=== PATIENT | female | born 1990 | race Caucasian/White ===

== ENCOUNTER 2022-08-31 08:04 | Outpatient (CLI) | payer BC, SELFPAY ==
--- NOTE | 2022-08-31 08:15 | CRLHL7_ITS ---
For Patients: As a result of the Cures Act, medical imaging exams and procedure reports are released immediately into your electronic medical record. You may view this report before your referring provider. If you have questions, please contact your health care provider. INDICATION: Dating and viability. LMP 06/29/2022. COMPARISON: None. TECHNIQUE: Real-time clarke-scale imaging of the pelvis was performed. FINDINGS: Sonographic imaging demonstrates a single living intrauterine gestation. The embryo has a regular cardiac rate measuring 179 beats per minute. The embryo`s crown-rump length measurement of 2.5 cm corresponds to a gestational age of 9 weeks 1 day with a sonographic due date of 04/04/2023. There is a normal-appearing yolk sac. The placenta has not yet developed. No evidence of a perigestational hemorrhage. The cervix appears closed. The right ovary measures 3.4 x 2.2 x 1.7 cm and the left ovary measures 3.9 x 2.1 x 2.3 cm. Corpus luteum in the left ovary. No free fluid in the cul-de-sac. IMPRESSION: 1. Single living intrauterine gestation with crown rump length 2.5 cm which corresponds to a gestational age of 9 weeks 1 day with a sonographic due date of 04/04/2023. 2. The clinical gestational age by LMP is 9 weeks 0 days. Dictated by Laurel Torres MD @ 08/31/2022 8:25:46 PM (Electronically Signed)
== END 2022-08-31 08:05 | disposition home or self-care (01) ==
PROVIDERS: Visit Provider Physician Assistant
DX: Z34.91 Encounter for supervision of normal pregnancy, unspecified, first trimester (principal); Z3A.09 9 weeks gestation of pregnancy
CPT/HCPCS: 76817; 82565; 82570; 84156; 84450; 84460; 84520; 86592; 86703; 86762; 86787; 86803; 86850; 86900; 86901; 87086; 87340; 87491; 87591

== ENCOUNTER 2022-09-08 10:20 | Outpatient (CLI) | payer BC, SELFPAY | END 2022-09-08 10:21 | disposition home or self-care (01) | LOC: NFLDREF 09-10 09:13 | PROVIDERS: Visit Provider Physician Assistant | DX: O14.90 Unspecified pre-eclampsia, unspecified trimester (principal) | CPT/HCPCS: 82570; 84156 ==

== ENCOUNTER 2022-12-21 11:11 | Outpatient (CLI) | payer BC, SELFPAY | END 2022-12-21 11:12 | disposition home or self-care (01) | PROVIDERS: Visit Provider Obstetrics & Gynecology | DX: O16.2 Unspecified maternal hypertension, second trimester (principal); Z3A.25 25 weeks gestation of pregnancy | CPT/HCPCS: 82565; 82570; 84156; 84450; 84460; 84520 ==

== ENCOUNTER 2023-01-11 10:41 | Outpatient (CLI) | payer BC, SELFPAY ==
--- NOTE | 2023-01-11 11:00 | CRLHL7_ITS ---
For Patients: As a result of the Century Cures Act, medical imaging exams and procedure reports are released immediately into your electronic medical record. You may view this report before your referring provider. If you have questions, please contact your health care provider. OBSTETRIC ULTRASOUND INDICATION: Maternal hypertension. LMP: 06/29/2022. IRVING by LMP: 04/05/2023. GA: 28w, 0d. Single. CERVIX: Not visualized. POSITIONING: Vertex. AMNIOTIC FLUID: 27.8 cm BEAN. SDP 8.1 cm. PLACENTA: Technique: Transabdominal. PLACENTA POSITION: Posterior, right wall. DOPPLER: heart rate: 137 bpm. Biometry: BPD: 7.6 cm. 30w, 4d, 97 percent. HC: 28.5 cm. 31w, 2d, 97 percent. AC: 24.9 cm. 29w, 1d, 76 percent. FL: 5.1 cm. 27w, 3d, 20 percent. FL/AC ratio: 20.62 percent. HC/AC ratio: 1.14. EFW: 1295 g. Weight: 2 lbs, 14 oz. age by this US: 29w, 4d. IRVING by this US: 03/25/2023. Percentile by IRVING: 71 percent. IMPRESSION: 1. Single live intrauterine gestation at 29 weeks 4 days. IRVING of 03/25/2023. Polyhydramnios with single deepest pocket measuring 8.1 cm. BEAN measures 27.8 cm. 2. Estimated weight 1295 g., which lies at the 71st percentile. Kenia Gordon M.D. Diagnostic/Breast Radiologist [email or web address] JUANJOSE/ros / be/Dictated by: Kenia Gordon MD @ 01/14/2023 8:15:00 PM (Electronically Signed)
== END 2023-01-11 10:42 | disposition home or self-care (01) ==
LOC: US 10:42
PROVIDERS: Visit Provider Obstetrics & Gynecology
DX: Z3A.29 29 weeks gestation of pregnancy (principal)
CPT/HCPCS: 76816; 86592

== ENCOUNTER 2023-01-25 10:07 | Outpatient (CLI) | payer BC, SELFPAY ==
--- NOTE | 2023-01-25 10:15 | CRLHL7_ITS ---
For Patients: As a result of the Century Cures Act, medical imaging exams and procedure reports are released immediately into your electronic medical record. You may view this report before your referring provider. If you have questions, please contact your health care provider. INDICATION: HYPERTENSION TECHNIQUE: Real time clarke scale imaging of the fetus was performed. COMPARISON: 01/11/2023 FINDINGS: Sonographic imaging demonstrates a single living intrauterine gestation. Fetus demonstrates a regular cardiac rate of 144 beats per minute. Fetus has a vertex position. The placenta lies right posterior. Amniotic fluid volume appears mildly increased and there is a single deepest pocket of 9.2 cm. BEAN 26.0 cm. The estimated weight is 1864gm which lies at the 94th %. On the prior OB ultrasound dated 01/11/2023 the estimated weight was at the 71st percentile. BPD/HC/AC greater than 97th percentile. FL 30th percentile. The fetus was active and demonstrated normal breathing movements. There was normal flexion and extension of the trunk and extremities. IMPRESSION: Normal biophysical profile score 8/8. The sonographic gestational age 32 weeks 2 days and sonographic due date 03/20/2023. Sonographic age 16 days ahead of the clinical age. Estimated weight 94th percentile. Abdominal circumference, head circumference and biparietal diameter greater than 97th percentile. Possible mildly increased amniotic fluid with BEAN 26.0 cm. Dictated by Robert Jones MD @ 01/25/2023 11:22:13 AM (Electronically Signed)
== END 2023-01-25 10:08 | disposition home or self-care (01) ==
LOC: US 10:09
PROVIDERS: Visit Provider Obstetrics & Gynecology
DX: O16.3 Unspecified maternal hypertension, third trimester (principal); Z3A.32 32 weeks gestation of pregnancy
CPT/HCPCS: 76816; 76819

== ENCOUNTER 2023-02-12 08:09 | Outpatient (CLI) | payer BC, SELFPAY ==
--- NOTE | 2023-02-12 08:15 | CRLHL7_ITS ---
For Patients: As a result of the Century Cures Act, medical imaging exams and procedure reports are released immediately into your electronic medical record. You may view this report before your referring provider. If you have questions, please contact your health care provider. INDICATION: Hypertension TECHNIQUE: Real time clarke scale imaging of the fetus was performed. COMPARISON: 01/25/2023 FINDINGS: Sonographic imaging demonstrates a single living intrauterine gestation. Fetus demonstrates a regular cardiac rate of 145 beats per minute. Fetus has a vertex position. The placenta lies right-sided. Amniotic fluid volume appears normal and there is a single deepest pocket of 5.9 cm. BEAN 20.6 cm. The estimated weight is 2504gm which lies at the 95th %. On the prior OB ultrasound dated 01/25/2023 the estimated weight was at the 94th percentile. BPD, HC greater than 97th percentile. AC 97th percentile. FL 15th percentile. The fetus was active and demonstrated normal breathing movements. There was normal flexion and extension of the trunk and extremities. IMPRESSION: Normal biophysical profile score 8/8. Sonographic gestational age 35 weeks 6 days and sonographic due date 03/13/2023. Sonographic age is 23 days ahead of the clinical age. Estimated weight 95th percentile. Abdominal circumference 97th percentile. BPD/HC greater than 97th percentile. Dictated by Robert Jones MD @ 02/12/2023 11:18:49 AM (Electronically Signed)
== END 2023-02-12 08:10 | disposition home or self-care (01) ==
LOC: US 08:09
PROVIDERS: Visit Provider Obstetrics & Gynecology
DX: O16.3 Unspecified maternal hypertension, third trimester (principal); Z3A.35 35 weeks gestation of pregnancy
CPT/HCPCS: 76816; 76819; 82565; 82570; 84156; 84450; 84460; 84520

== ENCOUNTER 2023-02-19 10:05 | Outpatient (CLI) | payer BC, SELFPAY | END 2023-02-19 10:06 | disposition home or self-care (01) | LOC: NFLDREF 02-20 06:43 | PROVIDERS: Visit Provider Obstetrics & Gynecology | DX: O16.3 Unspecified maternal hypertension, third trimester (principal); Z3A.34 34 weeks gestation of pregnancy | CPT/HCPCS: 82565; 82570; 84156; 84450; 84460; 84520 ==

== ENCOUNTER 2023-02-26 09:00 | Outpatient (CLI) | payer BC, SELFPAY ==
--- NOTE | 2023-02-26 09:15 | CRLHL7_ITS ---
For Patients: As a result of the Century Cures Act, medical imaging exams and procedure reports are released immediately into your electronic medical record. You may view this report before your referring provider. If you have questions, please contact your health care provider. INDICATION: Hypertension COMPARISON: 02/12/2023 TECHNIQUE: Real time clarke scale imaging of the fetus was performed. Without non-stress testing. FINDINGS: Sonographic imaging demonstrates a single living intrauterine gestation. Fetus demonstrates a regular cardiac rate of 130 beats per minute. Fetus has a vertex position. The amniotic fluid volume appears upper limits of normal and there is a single deepest pocket measurement of 8.0 cm. BEAN 24.6 cm. The fetus was active and demonstrated normal breathing movements. There was normal flexion and extension of the trunk and extremities. IMPRESSION: Normal biophysical profile score of 8 out of 8. Amniotic fluid upper limits normal with BEAN 24.6 cm. Dictated by Robert Jones MD @ 02/26/2023 1:27:34 PM (Electronically Signed)
== END 2023-02-26 09:01 | disposition home or self-care (01) ==
PROVIDERS: Visit Provider Obstetrics & Gynecology
DX: O10.919 Unspecified pre-existing hypertension complicating pregnancy, unspecified trimester (principal); O16.9 Unspecified maternal hypertension, unspecified trimester
CPT/HCPCS: 76819; 82565; 82570; 84156; 84450; 84460; 84520

== ENCOUNTER 2023-03-05 10:00 | Outpatient (CLI) | payer BC, SELFPAY | END 2023-03-05 10:01 | disposition home or self-care (01) | LOC: NFLDREF 13:14 | PROVIDERS: Visit Provider Obstetrics & Gynecology | DX: O16.3 Unspecified maternal hypertension, third trimester (principal); Z3A.35 35 weeks gestation of pregnancy | CPT/HCPCS: 82565; 82570; 84156; 84450; 84460; 84520 ==

== ENCOUNTER 2023-03-12 09:02 | Outpatient (CLI) | payer BC, SELFPAY | END 2023-03-12 09:03 | disposition home or self-care (01) | LOC: NFLDREF 03-14 19:24 | PROVIDERS: Visit Provider Obstetrics & Gynecology | DX: O16.3 Unspecified maternal hypertension, third trimester (principal) | CPT/HCPCS: 82565; 82570; 84156; 84450; 84460; 84520; 87081; 87653 ==

== ENCOUNTER 2023-03-12 09:07 | Outpatient (CLI) | payer BC, SELFPAY ==
--- NOTE | 2023-03-12 09:15 | CRLHL7_ITS ---
For Patients: As a result of the Century Cures Act, medical imaging exams and procedure reports are released immediately into your electronic medical record. You may view this report before your referring provider. If you have questions, please contact your health care provider. INDICATION: Evaluate growth. Hypertension. Elevated amniotic fluid volume. TECHNIQUE: Transabdominal obstetrical ultrasound. COMPARISON: February 12, 2023. FINDINGS: There is a single living intrauterine in vertex presentation. Posterior and right lateral wall placental location. cardiac activity was visualized at real-time ultrasound evaluation but was not documented. Elevated amniotic fluid volume index of 30.4 cm which would indicate polyhydramnios. Biparietal diameter 10.2 cm, greater than the 97th percentile. Head circumference 36.5 cm, greater than the 97th percentile. Abdominal circumference 34.9 cm, greater than the 97th percentile. Femur length 6.8 cm, 10th percentile. Composite calculated ultrasound age 36 weeks 6 days with a sonographic due date of April 03, 2023. Estimated weight 3593 g which lies at the 96 percentile. The head to abdominal circumference ratio is at the upper limit of normal of 1.05 (0.92-1.05). Biophysical profile score 8/8 with 2 points given each for breathing, movement, tone, and amniotic fluid. IMPRESSION: 1. Single living intrauterine in vertex presentation. Cardiac activity was visualized at real-time ultrasound examination but the heart rate was not documented. 2. Polyhydramnios. 3. Composite calculated ultrasound age 36 weeks 6 days with a sonographic due date of April 03, 2023. 4. Estimated weight lies at the 96 percentile. Dictated by Matheus Burns MD @ 03/12/2023 12:10:15 PM (Electronically Signed)
== END 2023-03-12 09:08 | disposition home or self-care (01) ==
LOC: US 09:08
PROVIDERS: Visit Provider Obstetrics & Gynecology
DX: O10.913 Unspecified pre-existing hypertension complicating pregnancy, third trimester (principal); O40.3XX0 Polyhydramnios, third trimester, not applicable or unspecified; O16.3 Unspecified maternal hypertension, third trimester; Z3A.36 36 weeks gestation of pregnancy
CPT/HCPCS: 76816; 76819; 82565; 82570; 84156; 84450; 84460; 84520

== ENCOUNTER 2023-03-15 08:14 | Outpatient (CLI) | payer BC, SELFPAY ==
--- NOTE | 2023-03-15 08:15 | CRLHL7_ITS ---
For Patients: As a result of the Cures Act, medical imaging exams and procedure reports are released immediately into your electronic medical record. You may view this report before your referring provider. If you have questions, please contact your health care provider. INDICATION: History of polyhydramnios. COMPARISON: Ob ultrasound and biophysical profile from 03/12/2023. FINDINGS: Transabdominal examination of the is performed. A single intrauterine gestation is seen in cephalic presentation with regular cardiac activity at 152 beats per minute. The placenta is posterior and is free of the cervical os. The placental grade is 1 and the amniotic fluid volume is elevated. The DVP is elevated at 10.0 cm, top-normal 8.0, unchanged from the previous study where it was 10.4 cm The BEAN is elevated at 29.8 centimeters, top-normal 27.5 centimeters, unchanged compared to the previous study there was 30.4 cm. The biophysical profile score is 8/8 with no points off. IMPRESSION: 1. Single intrauterine gestation in cephalic presentation with regular cardiac activity. 2. Continued findings of polyhydramnios. 3. Continued elevated DVP at 10.0 cm, unchanged from the previous study. 4. Continued elevated BEAN at 29.8 cm, unchanged from the previous study. 5. Normal biophysical profile score of 8/8. Dictated by Frank Thakkar MD @ 03/20/2023 11:15:55 PM (Electronically Signed)
== END 2023-03-15 08:15 | disposition home or self-care (01) ==
LOC: US 08:14
PROVIDERS: Visit Provider Obstetrics & Gynecology
DX: O10.913 Unspecified pre-existing hypertension complicating pregnancy, third trimester (principal); Z3A.37 37 weeks gestation of pregnancy
CPT/HCPCS: 76819

== ENCOUNTER 2023-03-20 08:43 | Outpatient (CLI) | payer BC, SELFPAY ==
--- NOTE | 2023-03-20 08:45 | CRLHL7_ITS ---
For Patients: As a result of the Century Cures Act, medical imaging exams and procedure reports are released immediately into your electronic medical record. You may view this report before your referring provider. If you have questions, please contact your health care provider. INDICATION: Hypertension COMPARISON: 03/15/2023 TECHNIQUE: Real time clarke scale imaging of the fetus was performed. Without non-stress testing. FINDINGS: Sonographic imaging demonstrates a single living intrauterine gestation. Fetus demonstrates a regular cardiac rate of 135 beats per minute. Fetus has a vertex position. The amniotic fluid volume appears increased and there is a single deepest pocket measurement of 9.5 cm. BEAN 33.0 cm. Previously, the BEAN was 29.8 cm. The fetus was active and demonstrated normal breathing movements. There was normal flexion and extension of the trunk and extremities. IMPRESSION: Normal biophysical profile score of 8 out of 8. Polyhydramnios. BEAN of 33.0 cm. Dictated by Robert Jones MD @ 03/20/2023 11:32:24 AM (Electronically Signed)
== END 2023-03-20 08:44 | disposition home or self-care (01) ==
LOC: US 08:43
PROVIDERS: Visit Provider Obstetrics & Gynecology
DX: O16.9 Unspecified maternal hypertension, unspecified trimester (principal); O40.9XX0 Polyhydramnios, unspecified trimester, not applicable or unspecified
CPT/HCPCS: 76819; 82565; 82570; 84156; 84450; 84460; 84520

== ENCOUNTER 2023-03-21 16:19 | Inpatient (IN) | payer BC, SELFPAY ==
[2023-03-21 16:33] VITALS: BP 136/74; PULSE 81; PULSE 83; O2SAT 96
[2023-03-21 16:38] VITALS: BMI 40.5
--- NOTE | 2023-03-21 17:24 | P.LDBA_ITS ---
Subjective History of Present Illness Time Seen by Provider: 17:24 Date Seen: 03/21/23 Narrative: Patient is being admitted to Labor and Delivery for induction of labor due to chronic hypertension and polyhydramnios. She is a 32 year old at weeks gestation. Her full history and physical was dictated by Dr. Lopez on 03/15/2023. Please see this for details. She is on labetalol 200 mg twice a day for blood pressure control. Specific Issues/Plans [id number] IOL scheduled at 38 weeks on 03/22/24 Will need cervical check on 03/20/23 to finalize IOL plan. Desires vaginal cytotec if ripening is required. - H&P 03/15 by John - cx closed on 03/15 1. Chronic HTN - history of gestational hypertension/white coat hypertension this Baseline pre E labs: all with the exception of pr/cr ratio: .30 24 hour urine for protein: 404 mg on 09/08/22. Nephrology and repeat 24 hour consult 10/25/22: Repeat 24 hour urine and ambulatory BP monitoring entirely normal. Concluded that she does NOT have chronic hypertension and no proteinuria. Follow up visit 01/31: no change in recommendations Taking ASA 81mg Referral for level 2 US placed: Normal anatomy, limited views, follow up in 4 weeks Repeat 12/14/22: EFW 88%, AC 96%, normal anatomy Repeat 01/25: EFW of 1864g at 94%ile, 10/30 BPP Surveillance: -Continue with growth US every 4 weeks -Starting at 32 weeks, weekly visits with testing, alternate NST (Saturday) with BPP (Saturday) -Continue to monitor BPs at home -HELLP labs weekly (Tuesdays) -Delivery at 37 weeks only if persistently elevated BPs at home and/or worsening BPs in clinic or signs of preeclampsia. Now on medications: 37 0/8 - 39 6/7 week IOL. -Started labetalol 100 mg BID 02/19 due to SBP 150s in clinic (normal at home). Increased to 200 mg BID on 02/26/23 2. Obesity, BMI 36.9 3. Moderate polyhydramnios noted on BPP 02/26/23. BEAN 25, SDP 8 c -03/12/23: BEAN: 30.4cm - 03/15: 8/ BPP, BEAN 29.8cm - 03/20 BEAN 33 4. Suspected macrosomia. * US 12/14/22: EFW 88%, AC 96%, normal anatomy * US 01/25: EFW of 1864g at 94%ile, 8 BPP * 02/12: EFW 95%, BPD >97%, HC>97%, AC 97%, BEAN 20, cephalic. * 03/12/23: EFW: 96%, vertex, BPD, HC, AC all more than the 97 th percentile. 5. GERD. Suboptimal response to omeprazole 20 mg. Begin 40 mg 02/26. 6. Atypical nevus diagnosed during . Reexcision of margins pending. TDAP: 02/12 Flu: Declines COVID:Declines RSV: declines OB - Problem Based A/P Additional Plan (1) Polyhydramnios: Status: Acute (2) Chronic hypertension affecting : Status: Acute Plan 1. Admit patient for cervical ripening with Cytotec. She received 25 mg of Cytotec every 3 hours with maximum of 5 doses. 2. Plan AROM tomorrow morning by Dr. Narayanan. 3. Patient will continue taking her labetalol 200 mg twice a day. 4. Dr. Narayanan will assume care at 7:00 a.m. on 03/22/2023 5. Preeclampsia labs ordered. 6. Blood type: A positive. 7. GBS negative. OB Exam Physical Exam Vital signs: Pulse BP Pulse Ox 81 136/74 96 03/21/23 16:33 03/21/23 16:33 03/21/23 16:33 Narrative: GENERAL APPEARANCE: Pleasant, [race], well-groomed woman in no acute distress. VITAL SIGNS: as noted in nursing notes HEAD: Normocephalic, atraumatic. THYROID: no masses, nodularity, tenderness or enlargement. LUNGS: Clear to auscultation bilaterally without wheezes, rales or rhonchi. HEART: Regular rate and rhythm with normal S1 and S2. No gallop, rub or murmur. ABDOMEN: Gravid. Soft, nontender, nondistended, with normal bowels sounds throughout. EFW: Baseline 130s. Moderate variability. Multiple accelerations. No decelerations. Reactive. Category 1 TOCO: Contractions every 4-10 minutes that the patient is not feeling. PRESENTATION: Vertex by Rios's maneuvers. SVE: 1.5 cm/ 50 %/ -3/soft/posterior. Fuentes score: 4 EXTREMITIES: No cyanosis, clubbing, or edema. No varicosities. NEUROLOGIC: Normal gait and balance. Normal deep tendon reflexes at bilateral patella 2+/2, equal without clonus. PSYCHIATRIC: alert and oriented x3. Normal speech pattern, eye contact and affect. SKIN: Warm, dry, and well perfused. Good turgor. No lesions, nodules or rashes.
[2023-03-21] MEDS: miSOPROStoL 25 MCG/0.25 TABLET VAGINAL ×2 (18:21→21:35)
[2023-03-21 19:11] LABS: Basophils Absolute Auto 0.01 K/uL (0.00-0.30); Basophils Percent Auto 0.1 % (0.0-3.0); Eosinophils Absolute Auto 0.03 K/uL (0.00-0.50); Eosinophils Percent Auto 0.4 % (0.0-7.0); Hematocrit 32.1 % (33.0-51.0); Hemoglobin* 10.7 gm/dL (12.0-16.0); Immature Granulocytes Abs Auto 0.03 K/uL (0.00-0.30); Immature Granulocytes Pct Auto 0.4 %; Lymphocytes Absolute Auto 1.71 K/uL (0.90-2.90); Mean Corpuscular HGB Conc 33 gm/dL (32-36); Mean Corpuscular Hemoglobin 31 pg (26-34); Mean Corpuscular Volume 93 fL (80-100); Monocytes Percent Auto 6.9 % (0.0-11.0); Neutrophils Absolute Auto 5.47 K/uL (1.7-7.0); Neutrophils Percent Auto 70.2 % (42.0-72.0); Platelet Count* 178 K/uL (140-440); RDW Coefficient of Variation % 12.2 % (11.5-15.5); Red Blood Count 3.44 m/uL (4.00-5.20); White Blood Count* 7.79 K/uL (4.50-11.00)
[2023-03-21 19:14] LABS: Slide Review Reflex No
[2023-03-21 19:36] LABS: Alanine Aminotransferase* 14 U/L (4-35); Aspartate Amino Transferase* 24 U/L (12-35); Blood Urea Nitrogen* 10 mg/dL (5-24); Creatinine* 0.6 mg/dL (0.5-1.5); Est. Creatinine Clearance* 141.98; Estimated Glomerular Filt Rate 123 ml/min
[2023-03-21] MEDS: OMEPRAZOLE 20 MG CAPSULE DR 40 MG PO (19:42)
[2023-03-21 21:19] VITALS: BP 133/69; PULSE 80; RESP 16; TEMP 36.8; O2SAT 99
[2023-03-21 21:21] VITALS: BP 133/69; PULSE 80; O2SAT 97
[2023-03-21] MEDS: LABETALOL HCL 100 MG TABLET 200 MG PO (21:51)
[2023-03-21 22:16] LABS: Total Protein Urine 6 mg/dL
[2023-03-22] VITALS (49 sets, daily range): BP systolic 106–148; BP diastolic 58–82; PULSE 67–107; RESP 16; TEMP 36.4–37.1; O2SAT 91–100
[2023-03-22] MEDS: miSOPROStoL 25 MCG/0.25 TABLET VAGINAL ×2 (00:31→03:36)
[2023-03-22 05:28] LABS: Hematocrit 30.8 % (33.0-51.0); Hemoglobin* 10.5 gm/dL (12.0-16.0); Mean Corpuscular HGB Conc 34 gm/dL (32-36); Mean Corpuscular Hemoglobin 31 pg (26-34); Mean Corpuscular Volume 92 fL (80-100); Platelet Count* 146 K/uL (140-440); Red Blood Count 3.34 m/uL (4.00-5.20); White Blood Count* 8.09 K/uL (4.50-11.00)
[2023-03-22 05:33] LABS: Slide Review Reflex No
[2023-03-22 05:42] LABS: Alanine Aminotransferase* 13 U/L (4-35); Aspartate Amino Transferase* 24 U/L (12-35); Blood Urea Nitrogen* 8 mg/dL (5-24); Creatinine* 0.5 mg/dL (0.5-1.5); Est. Creatinine Clearance* 170.37; Estimated Glomerular Filt Rate 129 ml/min
[2023-03-22] MEDS: LABETALOL HCL 100 MG TABLET 200 MG PO (08:40)
[2023-03-22] MEDS: LACTATED RINGERS 1000 ML 1,000 ML 125 ML IV ×2 (09:34→17:25)
[2023-03-22] MEDS: OXYTOCIN 30 unit/500 ML in NS 30 UNIT/500 ML BAG IVPB (09:36)
--- NOTE | 2023-03-22 09:39 | P.OBPN_ITS ---
Subjective Time Seen by Provider: 09:15 Date Seen: 03/22/23 Narrative: Denise is a 32 yo [id number] woman at 38 0/7 weeks' gestation who presents for IOL for chronic HTN complicating . OB Problem List: 1. Chronic HTN - history of gestational hypertension/white coat hypertension this Baseline pre E labs: all with the exception of pr/cr ratio: .30 24 hour urine for protein: 404 mg on 09/08/22. Nephrology and repeat 24 hour consult 10/25/22: Repeat 24 hour urine and ambulatory BP monitoring entirely normal. Concluded that she does NOT have chronic hypertension and no proteinuria. Follow up visit 01/31: no change in recommendations Taking ASA 81mg Referral for level 2 US placed: Normal anatomy, limited views, follow up in 4 weeks Repeat 12/14/22: EFW 88%, AC 96%, normal anatomy Repeat 01/25: EFW of 1864g at 94%ile, 10/30 BPP -Started labetalol 100 mg BID 02/19 due to SBP 150s in clinic (normal at home). Increased to 200 mg BID on 02/26/23 2. Obesity, BMI 36.9 3. Moderate polyhydramnios noted on BPP 02/26/23. BEAN 25, SDP 8 c -03/12/23: BEAN: 30.4cm - 03/15: 10/30 BPP, BEAN 29.8cm - 03/20 BEAN 33 4. Suspected macrosomia. * US 12/14/22: EFW 88%, AC 96%, normal anatomy * US 01/25: EFW of 1864g at 94%ile, 10/30 BPP * 02/12: EFW 95%, BPD >97%, HC>97%, AC 97%, BEAN 20, cephalic. * 03/12/23: EFW: 96%, vertex, BPD, HC, AC all more than the 97th percentile. 5. GERD. Suboptimal response to omeprazole 20 mg. Begin 40 mg 02/26. 6. Atypical nevus diagnosed during . Reexcision of margins pending. Denise has had 4 doses of vaginal misoprostol for ripening. She was migdalia too frequently for the 4th dose, so this was held. She is currently on Birthing Ball. Objective Exam: Gen - NAD Abd - Soft, NT, gravid, head not engaged, cephalic Cervical exam - 3 / 75 / -3 / anterior / soft Vital Signs: Last Vital Signs Temp 98.1 F 03/22/23 08:03 Pulse 81 03/22/23 08:05 Resp 16 03/22/23 06:32 BP 133/64 03/22/23 08:05 Pulse Ox 98 03/22/23 06:32 Comments: Labs at 5:00 a.m.: Hemoglobin 10.5. Otherwise, normal HELLP labs. Pelvic Exam Dilation (cm): 3 Effacement (%): 75 Station: -3 Comments: anterior, soft Contractions Monitor mode: External Contraction Frequency: Q 2 min when showing up on monitor Contraction pattern: Regular Assessment Assessment: early labor Status: Category l Heart Rate Baseline: 130 Nuclear Medical Tech Variability: Moderate (6-25) Monitor Accelerations: Present Monitor Decelerations: None Tracing Comments: Category I as above Labor Progress: Now with favorable cervix after 4 doses misoprostol. Maternal Status: BP most recently within normal ranges. HELLP labs normal. Anemia on this morning's labs, with hemoglobin 10.5. Plan Plan: Begin Pitocin for induction of labor. Continuous monitoring. Will re-evaluate for station and consider rupture of membranes on future exam.
[2023-03-22] MEDS: LIDOCAINE 2% (PF) 5 ML VIAL EPIDURAL ×2 (17:57→21:45)
[2023-03-22] MEDS: ROPIVACAINE 0.2% 100 ml 100 ML 12 MG EPIDURAL (17:59)
--- NOTE | 2023-03-22 18:00 | P.ANBPRC_ITS ---
[facility] Medical History History of abnormal cervical Pap smear (2014) ?Z87.42 - Personal history of other diseases of the female genital tract (ICD-10) Normal spontaneous vaginal delivery (06/12/21) ?O80 - Encounter for full-term uncomplicated delivery (ICD-10) Gestational hypertension (2021) ?O13.9 - Gestational [-induced] hypertension without significant proteinuria, unspecified trimester (ICD-10) Family History Mother Colon cancer High blood pressure Father Kidney malignancy High blood pressure Maternal Grandfather Coronary artery disease Paternal Grandmother Breast cancer, Onset Age: 40 Aunt Breast cancer, Onset Age: 40 Social History What is your current living situation?: I presently have a place to live Problems where you live: no known problems In the past 12 months, utilities in danger of being shut off: no In past 12 months, lack of transportation kept you from medical appts, meetings, work, or getting things needed for daily living: no In the past 12 mos, have been you worried that your food would run out before you had money to buy more?: never true In the past 12 mos, the food you bought just didn't last and you didn't have money to buy more?: never true Smoking Status: Never smoker How often does anyone, including family, friends and others, physically hurt you : never How often does anyone, including family, friends and others, insult or talk down to you: never How often does anyone, including family, friends and others, threaten you with harm: never How often does anyone, including family, friends and others, scream or curse at you: never Little interest or pleasure in doing things: not at all Feeling down, depressed, or hopeless: not at all Meds Home Medications and Allergies Home Medications Medication Instructions Recorded Confirmed Type docosahexaenoic acid 200 mg 200 mg PO DAILY 08/31/22 03/21/23 History capsule ( DHA) aspirin 81 mg chewable tablet 81 mg PO QDAY 09/28/22 03/21/23 History ascorbate calcium (vitamin C) 500 500 mg PO QDAY 01/11/23 03/21/23 History mg tablet docusate sodium 100 mg capsule 100 mg PO QDAY PRN 01/25/23 03/21/23 History (Colace) ferrous gluconate 225 mg (27 mg 225 mg PO QDAY 02/12/23 03/21/23 History iron) tablet (Fergon) omeprazole 20 mg capsule,delayed 40 mg PO QDAY 02/26/23 03/21/23 History release labetalol 100 mg tablet 200 mg PO BID 03/05/23 03/21/23 History Allergies Allergy/AdvReac Type Severity Reaction Status Date / Time No Known Drug Allergies Allergy Verified 03/20/23 09:36 Results Labs Labs: Laboratory Results - last 24 hr 03/21/23 03/21/23 03/22/23 19:00 Unknown 05:00 WBC 7.79 RBC 3.44 L Hgb 10.7 L Hct 32.1 L MCV 93 MCH 31 MCHC 33 RDW Coeff of Lamont 12.2 Plt Count 178 Neut % (Auto) 70.2 Lymph % (Auto) 22.0 Bonner % (Auto) 6.9 Eos % (Auto) 0.4 Baso % (Auto) 0.1 Neut # (Auto) 5.47 Lymph # (Auto) 1.71 Bonner # (Auto) 0.50 Eos # (Auto) 0.03 Baso # (Auto) 0.01 Abs Immat Gran (auto) 0.03 Imm/Tot Granulo (auto) 0.4 BUN 10 8 Creatinine 0.6 0.5 Estimated Creat Clear 141.98 170.37 Estimated GFR 123 129 AST 24 24 ALT 14 13 Urine Creatinine 273.0 Protein/Creatinin Ratio 0.00 Urine Total Protein 6 Blood Type A Positive Antibody Screen NEGATIVE 03/22/23 05:15 WBC 8.09 RBC 3.34 L Hgb 10.5 L Hct 30.8 L MCV 92 MCH 31 MCHC 34 RDW Coeff of Lamont Plt Count 146 Neut % (Auto) Lymph % (Auto) Bonner % (Auto) Eos % (Auto) Baso % (Auto) Neut # (Auto) Lymph # (Auto) Bonner # (Auto) Eos # (Auto) Baso # (Auto) Abs Immat Gran (auto) Imm/Tot Granulo (auto) BUN Creatinine Estimated Creat Clear Estimated GFR AST ALT Urine Creatinine Protein/Creatinin Ratio Urine Total Protein Blood Type Antibody Screen Vital Signs Vital Signs: Last Vital Signs Temp 98.7 F 03/22/23 15:58 Pulse 80 03/22/23 15:57 Resp 16 03/22/23 06:32 BP 136/70 03/22/23 15:57 Pulse Ox 100 03/22/23 17:57 Weight: 124.6 kg Height: 175.26 cm Anesthesia Procedures Epidural Insertion Patient Location: OB Start Time: 17:45 Stop Time: 18:01 Start Date: 03/22/23 Stop Date: 03/22/23 Reason for Block: procedure for pain Patient Position: sitting Performed By: Saulo Bazzi Preanesthetic Checklist: IV checked, risks and benefits discussed, surgical consent, monitors and equipment checked, pre-op evaluation, timeout performed and anesthesia consent Prep: chlorhexidine gluconate Monitoring: blood pressure monitoring, continuous pulse oximetry and heart rate Approach: midline Vertebral Space: lumbar (1-5) Epidural Technique: VIKTORIA air Needle Type: Tuohy needle Injection Technique: continuous catheter Needle gauge: 17 Needle Length (cm): 10 cm Needle Insertion Depth (cm): 7 Catheter Gauge: 19 Catheter Type: multi-orifice Catheter at skin depth (cm): 13 Test Dose Result: negative and lidocaine 1.5% with epinephrine 1 to 200,000
[2023-03-22] MEDS: PHENYLEPHRINE 100 MCG/ML SYRINGE IVP (18:32)
--- NOTE | 2023-03-22 18:53 | P.OBPN_ITS ---
Subjective Time Seen by Provider: 18:45 Date Seen: 03/22/23 Narrative: Denise is a 32 yo A3A6-5-4-8 woman at 38 0/7 weeks' gestation who presents for IOL for chronic HTN complicating . OB Problem List: 1. Chronic HTN - history of gestational hypertension/white coat hypertension this Baseline pre E labs: all with the exception of pr/cr ratio: .30 24 hour urine for protein: 404 mg on 09/08/22. Nephrology and repeat 24 hour consult 10/25/22: Repeat 24 hour urine and ambulatory BP monitoring entirely normal. Concluded that she does NOT have chronic hypertension and no proteinuria. Follow up visit 01/31: no change in recommendations Taking ASA 81mg Referral for level 2 US placed: Normal anatomy, limited views, follow up in 4 weeks Repeat 12/14/22: EFW 88%, AC 96%, normal anatomy Repeat 01/25: EFW of 1864g at 94%ile, 10/30 BPP -Started labetalol 100 mg BID 02/19 due to SBP 150s in clinic (normal at home). Increased to 200 mg BID on 02/26/23 2. Obesity, BMI 36.9 3. Moderate polyhydramnios noted on BPP 02/26/23. BEAN 25, SDP 8 c -03/12/23: BEAN: 30.4cm - 03/15: 10/30 BPP, BEAN 29.8cm - 03/20 BEAN 33 4. Suspected macrosomia. * US 12/14/22: EFW 88%, AC 96%, normal anatomy * US 01/25: EFW of 1864g at 94%ile, 10/30 BPP * 02/12: EFW 95%, BPD >97%, HC>97%, AC 97%, BEAN 20, cephalic. * 03/12/23: EFW: 96%, vertex, BPD, HC, AC all more than the 97th percentile. 5. GERD. Suboptimal response to omeprazole 20 mg. Begin 40 mg 02/26. 6. Atypical nevus diagnosed during . Reexcision of margins pending. Denise had 4 doses of vaginal misoprostol for ripening. She was then started on Pitocin for induction of labor. Denise recently had epidural placed. baseline heart rate is around 125. Moderate variability is noted. From 1816 through 1829, there were recurrent late decelerations. These were addressed by cessation of Pitocin, position change, and a dose of phenylephrine. Since at least 1835, baseline has been in the 130s without recurrent decelerations. She is feeling very numb and a little shaky. Objective Exam: Gen - NAD Cervical exam 7 / 100% / +1 / anterior Vital Signs: Last Vital Signs Temp 97.8 F 03/22/23 18:09 Pulse 74 03/22/23 18:48 Resp 16 03/22/23 06:32 BP 134/69 03/22/23 18:48 Pulse Ox 96 03/22/23 18:17 Comments: Labs at 5:00 a.m.: Hemoglobin 10.5. Otherwise, normal HELLP labs. Pelvic Exam Dilation (cm): 7 Effacement (%): 100 Station: +1 Comments: anterior, soft Contractions Monitor mode: External Contraction Frequency: Q 2 min when showing up on monitor Contraction pattern: Regular Pitocin Rate (mU/min): 0 Assessment Assessment: early labor Status: Category ll Heart Rate Baseline: 130 Penitentiary Variability: Moderate (6-25) Monitor Accelerations: Present Monitor Decelerations: None Tracing Comments: As described above; currently reassuring. Labor Progress: Transitional phase of labor. Maternal Status: BP most recently within normal ranges. HELLP labs normal. Anemia on this morning's labs, with hemoglobin 10.5. Plan Plan: Begin Pitocin when status is consistently reassuring for 30 minutes. Continuous monitoring. Repeat exam at 20:45 or with urge to push.
--- NOTE | 2023-03-22 22:07 | W.PM.VAGDEL1 ---
Procedure Delivery date: 03/22/23 Procedure Done: [employer] Procedure Details: The patient is a 32 year-old G 2 P 1-0-0-1 woman admitted on 03/21/2023 at 37 Weeks, 6 Days gestation for induction of labor for indication of chronic hypertension complicating and polyhydramnios.? Cervical exam on admission was 1.5 cm/ 50 %/ -3/soft/posterior. Fuentes score: 4 cm. Membranes were intact and fetus in vertex presentation.? heart rate demonstrated baseline 130 bpm with moderate variability, positive accelerations, no decelerations; a category 1 tracing.? She had 4 doses of vaginal misoprostol for cervical ripening, then had Pitocin for induction of labor. AROM occurred at 1:55 p.m. on 03/22/2023 with clear fluid. ? Labor Analgesia:? Epidural ? Pitocin:? Yes ? Labor onset:? 2:15 p.m. on 03/22/2023 ? Complete:? 7:35 p.m. ? Pushing:? We initially attempted pushing at 7:35 a.m., but maternal efforts were not successful after 3 pushes. She did not feel an urge to push, and passive descent of the head was allowed. Pushing again started at 9:21 p.m. once again, maternal expulsive efforts did not result in descent of the head. Bedside ultrasound was performed, confirming 0P presentation with back to maternal left. Using a gloved hand, during a contraction, I elevated the head and rotated it counter-clockwise, resulting in OA position. Thereafter, she pushed a few more times. ? heart tones during this part of the second stage were notable for recurrent late decelerations. ? At 9:37 p.m. a viable male infant delivered in vertex OA presentation over small second-degree laceration via spontaneous vaginal delivery.? Infant was placed on maternal abdomen.? Cord was clamped and cut after a 30-60 second delay.? Nose and mouth were bulb suctioned.? Infant weight pending.? 7 at 1 minute and 9 at 5 minutes.? Shoulder dystocia: No.? Nuchal cord: No. ? Placenta delivered spontaneously and complete at 9:43 p.m. with a 3 vessel cord. ? Mother and infant were stable after delivery. ? Lacerations:? Second-degree vaginal and perineal, repaired with 3-0 Vicryl after infiltration with 10 mL of 1% lidocaine. ? Blood loss: 300 mL. Blood loss measurement type: EBL ? Sponge and needles counts are correct. Events: Chronic Hypertension, Labor Induction, Labor Augmentation and Polyhydramnios Intrapartal Events: Labor Augmentation and Labor Induction Delivery augmentation: rupture of membranes Delivery monitor: external FHT Route of delivery:
[2023-03-23 04:47] VITALS: BP 132/85; PULSE 75; RESP 18; TEMP 36.6; O2SAT 96
[2023-03-23] MEDS: IBUPROFEN 600 MG TABLET PO (05:03)
[2023-03-23 05:37] LABS: Basophils Percent Auto 0.1 % (0.0-3.0); Eosinophils Percent Auto 0.1 % (0.0-7.0); Hematocrit 29.3 % (33.0-51.0); Hemoglobin* 9.9 gm/dL (12.0-16.0); Immature Granulocytes Pct Auto 0.3 %; Lymphocytes Percent Auto 13.3 % (20-44); Mean Corpuscular HGB Conc 34 gm/dL (32-36); Mean Corpuscular Hemoglobin 32 pg (26-34); Mean Corpuscular Volume 95 fL (80-100); Monocytes Percent Auto 7.1 % (0.0-11.0); Neutrophils Percent Auto 79.1 % (42.0-72.0); Platelet Count* 145 K/uL (140-440); RDW Coefficient of Variation % 12.3 % (11.5-15.5); Red Blood Count 3.09 m/uL (4.00-5.20); Slide Review Reflex No; White Blood Count* 12.31 K/uL (4.50-11.00)
[2023-03-23 05:53] LABS: Alanine Aminotransferase* 14 U/L (4-35); Aspartate Amino Transferase* 28 U/L (12-35); Blood Urea Nitrogen* 7 mg/dL (5-24); Creatinine* 0.6 mg/dL (0.5-1.5); Est. Creatinine Clearance* 141.98; Estimated Glomerular Filt Rate 123 ml/min
[2023-03-23 08:24] VITALS: BP 134/84; PULSE 69; RESP 18
[2023-03-23] MEDS: DOCUSATE SODIUM 100 MG CAPSULE PO (09:38)
[2023-03-23] MEDS: LABETALOL HCL 100 MG TABLET 200 MG PO ×2 (09:38→21:24)
--- NOTE | 2023-03-23 10:04 | PM.OBDSVD1 ---
DS: Providers Provider Time Seen by Provider: 10:04 Date Seen: 03/23/23 Date of admission: 03/21/23 16:19 Primary care physician: Not a Local Provider Admitting Clinician: Kaitlynn Narayanan MD Attending Physician on discharge: Kaitlynn Narayanan MD Date of Discharge: 03/23/23 DS: Diagnosis Discharge Diagnosis (1) Anemia due to acute blood loss: Status: Acute Exam Narrative: Exam Narrative: GENERAL APPEARANCE: Pleasant, , well-groomed woman in no acute distress. VITAL SIGNS: as noted in nursing notes HEAD: Normocephalic, atraumatic. THYROID: no masses, nodularity, tenderness or enlargement. LUNGS: Clear to auscultation bilaterally without wheezes, rales or rhonchi. HEART: Regular rate and rhythm with normal S1 and S2. No gallop, rub or murmur. ABDOMEN: Fundus firm 2 cm below the umbilicus in the midline. Soft, nontender, nondistended, with normal bowels sounds throughout. EXTREMITIES: No cyanosis, clubbing, or edema. No varicosities. NEUROLOGIC: Normal gait and balance. Normal deep tendon reflexes at bilateral patella 2+/2, equal without clonus. PSYCHIATRIC: alert and oriented x3. Normal speech pattern, eye contact and affect. SKIN: Warm, dry, and well perfused. Good turgor. No lesions, nodules or rashes. Const: Vital Signs, click to edit/add: Vital Signs - 24 hr 03/22/23 10:17 03/22/23 10:17 03/22/23 11:44 Temperature 98 F 97.6 F Pulse Rate 84 Pulse Rate [Blood Pressure Cuff] Respiratory Rate Blood Pressure 134/75 Blood Pressure [Le ft Arm] Pulse Oximetry Oxygen Delivery Al thod 03/22/23 11:44 03/22/23 12:40 03/22/23 14:15 Temperature 98.2 F Pulse Rate 85 88 Pulse Rate [Blood Pressure Cuff] Respiratory Rate Blood Pressure 122/59 L 123/58 L Blood Pressure [Le ft Arm] Pulse Oximetry Oxygen Delivery Al thod 03/22/23 14:15 03/22/23 14:18 03/22/23 15:57 Temperature Pulse Rate 86 90 80 Pulse Rate [Blood Pressure Cuff] Respiratory Rate Blood Pressure 140/65 H 137/60 136/70 Blood Pressure [Le ft Arm] Pulse [facility] 15:58 03/22/23 17:37 03/22/23 17:42 Temperature 98.7 F Pulse Rate Pulse Rate [Blood Pressure Cuff] Respiratory Rate Blood Pressure Blood Pressure [Le ft Arm] Pulse Oximetry 97 100 Oxygen Delivery Me thod 03/22/23 17:42 03/22/23 17:47 03/22/23 17:47 Temperature 98 F Pulse Rate Pulse Rate [Blood Pressure Cuff] Respiratory Rate Blood Pressure Blood Pressure [Le ft Arm] Pulse Oximetry 100 93 Oxygen Delivery Me thod 03/22/23 17:52 03/22/23 17:54 03/22/23 17:57 Temperature Pulse Rate Pulse Rate [Blood Pressure Cuff] Respiratory Rate Blood Pressure Blood Pressure [Le ft Arm] Pulse Oximetry 100 91 100 Oxygen Delivery Me thod 03/22/23 18:02 03/22/23 18:04 03/22/23 18:06 Temperature Pulse Rate 95 100 89 Pulse Rate [Blood Pressure Cuff] Respiratory Rate Blood Pressure 131/82 124/72 121/66 Blood Pressure [Le ft Arm] Pulse Oximetry 100 Oxygen Delivery Me thod 03/22/23 18:07 03/22/23 18:09 03/22/23 18:12 Temperature 97.8 F Pulse Rate 107 H Pulse Rate [Blood Pressure Cuff] Respiratory Rate Blood Pressure 114/67 Blood Pressure [Le ft Arm] Pulse Oximetry 98 100 Oxygen Delivery Me thod 03/22/23 18:17 03/22/23 18:23 03/22/23 18:33 Temperature Pulse Rate 82 85 82 Pulse Rate [Blood Pressure Cuff] Respiratory Rate Blood Pressure 130/60 124/58 L 129/62 Blood Pressure [Le ft Arm] Pulse Oximetry 96 Oxygen Delivery Me thod 03/22/23 18:48 03/22/23 19:03 03/22/23 19:18 Temperature Pulse Rate 74 75 81 Pulse Rate [Blood Pressure Cuff] Respiratory Rate Blood Pressure 134/69 134/68 139/77 Blood Pressure [Le ft Arm] Pulse Oximetry Oxygen Delivery Me thod 03/22/23 19:33 03/22/23 19:48 03/22/23 20:05 Temperature Pulse Rate 93 96 92 Pulse Rate [Blood Pressure Cuff] Respiratory Rate Blood Pressure 131/64 135/64 125/65 Blood Pressure [Le ft Arm] Pulse Oximetry Oxygen Delivery Me thod 03/22/23 20:18 03/22/23 20:33 03/22/23 20:48 Temperature Pulse Rate 90 86 80 Pulse Rate [Blood Pressure Cuff] Respiratory Rate Blood Pressure 129/68 121/64 123/58 L Blood Pressure [Le ft Arm] Pulse Oximetry Oxygen Delivery Me thod 03/22/23 21:03 03/22/23 21:18 03/22/23 21:48 Temperature Pulse Rate 82 88 94 Pulse Rate [Blood Pressure Cuff] Respiratory Rate Blood Pressure 125/65 138/65 139/63 Blood Pressure [Le ft Arm] Pulse Oximetry Oxygen Delivery Me thod 03/22/23 22:03 03/22/23 22:18 03/22/23 22:33 Temperature Pulse Rate 95 86 98 Pulse Rate [Blood Pressure Cuff] Respiratory Rate Blood Pressure 139/65 146/65 H 148/65 H Blood Pressure [Le ft Arm] Pulse Oximetry Oxygen Delivery Me thod 03/22/23 22:48 03/22/23 23:03 03/22/23 23:18 Temperature Pulse Rate 81 91 97 Pulse Rate [Blood Pressure Cuff] Respiratory Rate Blood Pressure 140/64 H 123/60 118/59 L Blood Pressure [Le ft Arm] Pulse Oximetry Oxygen Delivery Me thod 03/22/23 23:32 03/23/23 04:47 03/23/23 08:24 Temperature 97.8 F Pulse Rate 90 Pulse Rate [Blood Pressure Cuff] 75 69 Respiratory Rate 18 18 Blood Pressure 132/68 Blood Pressure [Le ft Arm] 132/85 134/84 Pulse Oximetry 96 Oxygen Delivery Me thod Room Air OB - DS: Summary Hospital Course Hospital Course: Denise is a 32 year old G 2 P 1 at 37 weeks 6 days gestation that was admitted to the Center on 03/21/23 for induction of labor due to polyhydramnios and chronic hypertension. She had an uncomplicated back delivery. She delivered a viable male infant. She is breast and bottle feeding. the patient has done well. Peripartum Data Infant delivery method: Vaginal [place] Gender: Male Time Spent with Patient Time attestation: Total time spent providing and/or coordinating discharge services: Discharge Plan Discharge Disposition: Home, Self-Care Date of Admission: 03/21/23 16:19 Attending Provider on Discharge: Patricia BagleyKit Primary Care Provider: Provider,Not a Local Condition: Stable Anticipated Discharge Date/Time: 03/23/23 22:30 Discharge Medications: New ibuprofen 600 mg Tablet 600 mg PO Q6H PRNQty: 30 0RF Continued ascorbate calcium (vitamin C) 500 mg tablet 500 mg PO QDAY Fergon 225 mg (27 mg iron) tablet 225 mg PO QDAY labetalol 100 mg tablet 200 mg PO BID DHA 200 mg capsule 200 mg PO DAILY omeprazole 20 mg capsule,delayed release(DR/EC) 40 mg PO QDAY docusate sodium [Colace] 100 mg capsule 100 mg PO QDAY PRN Discontinued aspirin 81 mg tablet,chewable 81 mg PO QDAY Discharge Orders: Discharge Order (Routine); Ordered 03/23/23 Ordered By: Patricia Andrade Patient Education: Vaginal Delivery (DC) Activity Detail: ACTIVITY RESTRICTIONS: ? Nothing vaginally for 6 weeks: no tampons/intercourse ? Off of work/school for a minimum of 6 weeks Symptoms to report to doctor: -Bleeding that saturates more than one pad per hour ?-Passing clots larger than the size of a golf ball ?-Pain not relieved by prescribed medication ?-Fever above 100.4 degrees Fahrenheit ?-A foul vaginal odor ?-Difficulty in emotions, mood and functions ?-Thoughts of hurting yourself and/or ?-Painful, reddened area in your breast ?-Any drainage, redness or tenderness in your IV/epidural site ?-Severe headache that doesn't improve after taking medications ?-Changes in vision, including temporary loss of vision, blurred vision, and/or light sensitivity ?-Upper abdominal pain (usually under ribs on the right side) ?-Decrease in urination or painful, frequent urinating ?-Chest pain ?-Shortness of breath ?-Tenderness or pain with redness and/swelling in the calf(s) of your leg Follow-up: [facility]. [facility] for a blood pressure check. 2. A 6 week visit for an annual physical exam. consultation services are available to all mothers and babies for the first year after delivery.? To make an appointment, please call [phone]. Discharge Diet: Regular Follow Up Appointments: Provider,Not a Local [Primary Care Provider] - [facility] [Provider Group] Kaitlynn Narayanan MD [Staff Physician] - Forms: MyHealth Info Instructions
[2023-03-23 12:51] VITALS: BP 128/85; PULSE 82; RESP 18; TEMP 36.3
[2023-03-23 16:28] VITALS: BP 129/82; PULSE 77; RESP 18; TEMP 36.6
[2023-03-23 21:15] VITALS: BP 133/85; PULSE 80; RESP 18; TEMP 36.8; O2SAT 98
== END 2023-03-23 23:01 | disposition home or self-care (01) | DRG 560 ==
PROVIDERS: Admitting Provider Obstetrics & Gynecology; Visit Provider Obstetrics & Gynecology
DX: O10.92 Unspecified pre-existing hypertension complicating childbirth (principal); Z3A.37 37 weeks gestation of pregnancy; Z37.0 Single live birth; O70.1 Second degree perineal laceration during delivery; O99.214 Obesity complicating childbirth; O99.02 Anemia complicating childbirth; O40.3XX0 Polyhydramnios, third trimester, not applicable or unspecified
CPT/HCPCS: 01967; 36415; 59200; 82565; 82570; 84156; 84450; 84460; 84520; 85025; 85027; 86850; 86900; 86901; A9270; J2371; J2795; J7120

== ENCOUNTER 2023-05-03 11:33 | Outpatient (CLI) | payer BC, SELFPAY ==
--- OUTSIDE RECORDS SUMMARY | 2023-05-03 11:36 | XMS_ITS | Encounter Summary ---
Author Name Unknown Organization [facility] Address [address] [place] [address] Care Team Providers Care Scoring Machine Operator Name Role Phone Esme Villatoro CNM Unavailable [phone] Emily Coon MD Unavailable No Ref-Primary, Physician Primary Care Provider Emily Coon MD Unavailable Encounter Details Date Type Department Care Team (Late st Contact Info) Description 01/29/2023 [facility] Medical Advice [facility] [address] [address] Emily Coon MD [address] [place] [address] Social History Tobacco Use Types Packs/Day Years Used Date Smoking Tobacco: Never Smokeless Tobacco: Never PHQ-2 Answer Date Recorded PHQ-2 Score 0 10/25/2022 Adolescent Education Answer Date Record ed Getting School Help Needed Not on file 12/15 Estimated Date of Delivery Comme nts Yes 04/05/2023 Date entered bhavana or to episode creation Sex and Gender Information Value Date Recorded Sex Assigned at Not on file Gender Identity Not on file Sexual Orientation Not on file documented as of this encounter Plan of Treatment Not on file documented as of this encounter Visit Diagnoses Not on filedocumented in this encounter Care Teams Scoring Machine Operator Relationship Specialty Start Date End Date No Ref-Primary, Physician PCP - General 10/02/22 Esme Villatoro CNM [address] [address] 10/02/22 Emily Coon MD [address] [place] [address] MD Internal Medicine 10/02/22 Emily Coon MD [address] [place] [address] Assigned Nephrology Provider 10/27/22 documented as of this encounter
--- OUTSIDE RECORDS SUMMARY | 2023-05-03 11:36 | XMS_ITS | Clinical Summary ---
Author Name Unknown Organization [facility] Address [address] [place] [address] Care Team Providers Care Elementary Classroom Teacher Name Role Phone Esme Villatoro ROBB Unavailable Emily Coon MD Unavailable No Ref-Primary, Physician Primary Care Provider Emily Coon MD Unavailable Allergies No known active allergies Medications Medication Sig Dispensed Refills Start Date End Date Status Docosahexaenoic Acid (DHA) 200 MG capsule Take 200 mg by mouth daily 0 Active aspirin 81 MG EC tablet Take 81 mg by mouth daily 0 Active ferrous sulfate (FEROSUL) 325 (65 Fe) MG tablet Take 325 mg by mouth daily (with breakfast) 0 Active Active Problems Estimated Date of Delivery Comme nts Yes 04/05/2023 Date entered bhavana or to episode creation No known active problems Encounters Date Type Department Care Team Description 01/31/2023 3:00 PM MARKING STITCHER Office Visit [facility] [address] [address] Emily Coon MD 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) 01/31/2023 Travel from Last 3 Months Family History Medical History Relation Comments Kidney Cancer Father Colon Cancer Mother Relation Status Comments Father Mother Social History Tobacco Use Types Packs/Day Years [...] on file Sexual Orientation Not on file Last Filed Vital Signs Vital Sign Reading Time Taken Comments Blood Pressure 138/88 01/31/2023 3:07 PM MARKING STITCHER Pulse 88 01/31/2023 3:07 PM MARKING STITCHER Temperature 36.8 ??C (98.3 ??F) 10/25/2022 1:01 PM CD T Respiratory Rate - - Oxygen Saturation 97% 01/31/2023 3:07 PM MARKING STITCHER Inhaled Oxygen Concentration - - Weight 120.2 kg (265 lb) 01/31/2023 3:07 PM MARKING STITCHER Height 175.3 cm (5' 9) 01/31/2023 3:07 PM MARKING STITCHER p t reported Body Mass Index 39.13 01/31/2023 3:07 PM MARKING STITCHER Plan of Treatment Health Maintenance Due Date Last Done Comments ADVANCE CARE PLANNING 1991 ANNUAL REVIEW OF HM ORDERS 1991 COVID-19 Vaccine (#1) 1991 HEPATITIS B IMMUNIZATION (3 of 3 - 3-dose series) 04/03/2004 02/07/2004, 07/26/2003 YEARLY PREVENTIVE VISIT 03/28/2021 03/28/2020 MATERNAL SCREENING DISCUSSION 09/07/2022 INFLUENZA VACCINE (#1) 2022 OBGCT (OB) 12/14/2022 GROUP B STREP SCREENING 03/08/2023 PHQ-2 (once per calendar year) 2023 10/25/2022 PAP 07/24/2024 07/24/2021, 07/24/2021 DTAP/TDAP/TD IMMUNIZATION (9 - Td or Tdap) 04/20/2031 04/20/2021, 03/05/2014, 03/05/2014, Additional history exists IPV IMMUNIZATION Completed 10/16/1996, 07/1991, 1991, Additional history exists HPV IMMUNIZATION Completed 05/10/2015, 02/2014, 03/05/2014, Additional history exists HEPATITIS C SCREENING Completed 08/31/2022 HIV SCREENING Completed 08/31/2022 MENINGITIS IMMUNIZATION Aged Out No l onger eligible based on patient's age to complete this topic Pneumococcal Vaccine: Pediatrics (0 to 5 Years) and At-Risk Patients (6 to 64 Years) Aged Out No longer eligible based on patient's age to complete this topic RSV MONOCLONAL ANTIBODY Aged Out No l onger eligible based on patient's age to complete this topic RSV VACCINE ( & 60+) (No Doses Required) Completed Care Teams Elementary Classroom Teacher Relationship Specialty Start Date End Date No Ref-Primary, Physician PCP - General 10/02/22 Esme Villatoro CNM [facility] [address] [place] [address] 10/02/22 Emily Coon MD [address] [place], [place] [id number] Internal Medicine 10/02/22 Emily Coon MD [address] [place], [place] [id number] Assigned Nephrology Provider 10/27/22
--- OUTSIDE RECORDS SUMMARY | 2023-05-03 11:36 | XMS_ITS | Encounter Summary ---
Author Name Unknown Organization [facility] Address [address] [place] [address] Care Team Providers Care Refinery Operator Vapor Recovery Unit Name Role Phone Esme Villatoro CNM Unavailable [phone] Emily Coon MD Unavailable No Ref-Primary, Physician Primary Care Provider Emily Coon MD Unavailable Encounter Details Date Type Department Care Team (Latest Contact Info) Description 01/29/2023 Travel Social History Tobacco Use Types Packs/Day Years [...] on filedocumented in this encounter Care Teams Refinery Operator Vapor Recovery Unit Relationship Specialty Start Date End Date No Ref-Primary, Physician PCP - General 10/02/22 Esme Villatoro CNM [facility] [address] [place] [address] 10/02/22 Emily Coon MD [address] [place] [address] Internal Medicine 10/02/22 Emily Coon MD [address] [place] [address] Assigned Nephrology Provider 10/27/22 documented as of this encounter
--- OUTSIDE RECORDS SUMMARY | 2023-05-03 11:36 | XMS_ITS | Encounter Summary ---
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) Social History Tobacco Use Types Packs/Day Years [...] on file documented as of this encounter Last Filed Vital Signs Vital Sign Reading Time Taken Comments Blood Pressure 138/88 01/31/2023 3:07 PM DOCUMENTUM CONSULTANT Pulse 88 01/31/2023 3:07 PM DOCUMENTUM CONSULTANT Temperature - - Respiratory Rate - - Oxygen Saturation 97% 01/31/2023 3:07 PM DOCUMENTUM CONSULTANT Inhaled Oxygen Concentration - - Weight 120.2 kg (265 lb) 01/31/2023 3:07 PM DOCUMENTUM CONSULTANT Height 175.3 cm (5' 9) 01/31/2023 3:07 PM DOCUMENTUM CONSULTANT p t reported Body Mass Index 39.13 01/31/2023 3:07 PM DOCUMENTUM CONSULTANT documented in this encounter Patient Instructions * Patient Instructions* Emily Coon MD - 01/31/2023 3:00 PM DOCUMENTUM CONSULTANT It was a pleasure taking care of you today. I've included a brief summary of our discussion and care plan from today's visit below. Please review this information with your primary care provider. My recommendations are summarized as follows: -Please do blood and urine tests 1 month after delivery. Who do I call with any questions after my visit? Please be in touch if there are any further questions that arise following today's visit. There aremultiple ways to contact your nephrology care team. During business hours, you may reach your Nephrology Care Team or schedule or reschedule an appointment or lab at [phone]. If you need to schedule imaging, please call . To schedule a COVID test, please call [phone]. You can always send a secure message through [employer]. [employer] messages are answered by your nurse or doctor typically within 24-48 hours. Please allow extra time on weekends and holidays. For urgent/emergent questions after business hours, you may reach the on-call Nephrology Fellow by contacting the [facility] core analysis operator at . How will I get the results of any tests ordered? You will receive all of your results. If you have signed up for [employer], any tests ordered at your visit will be available to you once resulted on [employer] Control[employer]art. Typically the physician reviews them and may or may not make further recommendations. If there are urgent results that require a change in yourcare plan, your physician or nurse will call you to discuss the next steps. If you are not on [employer] Controlsh[employer], a letter may be generated and mailed to you with your results. MENTUM CONSULTANT documented in this encounter Progress Notes * Emily Coon MD - 01/31/2023 3:00 PM CST I was asked to see this patient by Dr. Esme Villatoro. CC: Suspected proteinuria in HPI: I had the pleasure today of seeing Denise Darby. She is a 32 year old female who presents for evaluation of suspected Proteinuria and HTN. She is currently 31 weeks . She is being referred for proteinuria. Her 24-hour urine collection earlier in showed 404 milligrams per 24 hours. However, her repeat at [facility] was negative. She was also suspected of having HTN but her 24 hrs BP monitoring was negative. She notes that her clinic blood pressure is elevated while here home blood pressure is rather ok around 130/80. She attributes her high blood pressure in clinic to being stressed out. She is a 2 para 1. Her first was due June 13. She developed gestational hypertension at 28 weeks and she was induced at 37 weeks because of office blood pressure of 140 systolic [usually 120 at home]. It is unclear whether she had proteinuria during her first [fluctuating] and is also unclear whether she had preeclampsia. She delivered a healthy baby boy. She is now 31 weeks through her second today. Her due date is April 05, 2023. So far she is doing well. She denies lower extremity edema or shortness of breath, just regular fatigue with . Her blood pressures at home as 130/80. Family history: No preeclampsia in her family. Her mother of colon cancer. Her dad had hypertension and renal cancer. Social history: She is . She has 1 son Denny. She works at [employer] in [place]. She is anon-smoker and nonalcoholic. She has 2 sisters and 1 brother. All in [place]. No Known Allergies aspirin 81 MG EC tablet, Take 81 mg by mouth daily Docosahexaenoic Acid (DHA) 200 MG capsule, Take 200 mg by mouth daily No current facility-administered medications on file prior to visit. No past medical history on file. No past surgical history on file. Social History Tobacco Use Smoking status: Never Smokeless tobacco: Never Vaping Use Vaping Use: Never used Family History Problem Relation Age of Onset Colon Cancer Mother Kidney Cancer Father ROS: A 12 system review of systems was negative other than noted here or above. No skin rash, jointpain, shortness of breath, chest pain, headache, sinus pain, oral ulcers, lower extremity edema, change in bowel movements. Exam: BP 138/88 Pulse 88 Ht 1.753 m (5' 9) Wt 120.2 kg (265 lb) LMP 06/29/2022 SpO2 97% BMI 39.13 kg/m?? BP Readings from Last 6 Encounters: 01/31/23 138/88 10/25/22 (!) 143/80 BP at home 130/80 at home GENERAL APPEARANCE: alert and no distress EYES: PERRL HENT: mouth without ulcers or lesions NECK: supple, no adenopathy RESP: lungs clear to auscultation - no rales, rhonchi or wheezes CV: regular rhythm, normal rate, no rub ABDOMEN: soft, nontender, no HSM or masses and bowel sounds normal MS: extremities normal- no gross deformities noted, no evidence of inflammation in joints, no muscle tenderness SKIN: no rash NEURO: Normal strength and tone, sensory exam grossly normal, mentation intact and speech normal PSYCH: mentation appears normal. and affect normal/bright No lower extremity edema Results: Reviewed in details with the patient and her Assessment/Plan: Problem #1 hx of proteinuria during : She had a 24-hour urine collection done earlier during her which showed for a 404 mg per 24 hours. Repeat 24 hrs urine collection did not showany proteinuria. Her UACR today is WNL. There is also no evidence of hematuria Problem #2 whitecoat hypertension: Reportedly, her blood pressure at home is running within normal limits. 24 hrs ABPM was within normal limits. Will continue to monitor her BP at home Problem# 3: hx of of gestational hypertension: before though she also mentions that her home blood pressure was always lower than her office blood pressure. - She will continue to monitor her BP at home Problem #4 obesity: Advised not to gain excessive weight during and to cut down on salt. *This dictation was prepared in part using Dragon recognition software. As a result errors may occur. When identified these protective services case worker errors have been corrected. While every attempt is made to correct errors during dictation, errors may still exist. Emily Coon MD [facility] Department of Medicine Division of Renal Disease and Hypertension MENTUM CONSULTANT documented in this encounter Nursing Notes * Dixie Cunningham CMA - 01/31/2023 3:00 PM CST Chief Complaint Patient presents with RECHECK Vital signs: BP: 138/88 Pulse: 88 SpO2: 97 % Height: 175.3 cm (5' 9) (pt reported) Weight: 120.2 kg (265 lb) Estimated body mass index is 39.13 kg/m?? as calculated from the following: Height as of this encounter: 1.753 m (5' 9). Weight as of this encounter: 120.2 kg (265 lb). Dixie Cunningham CMA 01/31/2023 3:09 PM MENTUM CONSULTANT documented in this encounter Plan of Treatment Scheduled Orders Name Type Priority Associated Diagnoses Orde r Schedule Renal panel Lab Routine Isolated proteinuria with minor glomerular abnormality Expected: 01/31/2023 (Approximate), Expires: 02/01/2024 Urine Macroscopic with reflex to Microscopic Lab Routine Isolated proteinuria with minor glomerular abnormality Expected: 01/31/2023 (Approximate), Expires: 02/01/2024 Protein random urine Lab Routine Isolated proteinuria with minor glomerular abnormality Expected: 01/31/2023 (Approximate), Expires: 02/01/2024 documented as of this encounter Visit Diagnoses Diagnosis Isolated proteinuria with minor glomerular abnormality- Primary Other nephritis and nephropathy, not specified as acute or chronic, with specified pathological lesion in kidney documented in this encounter Care Teams Dyeing Machine Feeder Relationship Specialty Start Date End Date No Ref-Primary, Physician PCP - General 10/02/[address] [facility] [address] [place] [address] 10/02/22 Emily Coon MD [address] [place] [address] Internal Medicine 10/02/22 Emily Coon MD [address] [place] [address] Assigned Nephrology Provider 10/27/22 documented as of this encounter
--- OUTSIDE RECORDS SUMMARY | 2023-05-03 11:36 | XMS_ITS | Referral Summary ---
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) from Last 3 Months Allergies No known active allergies Medications Medication [...] to episode creation No known active problems Social History Tobacco Use Types Packs/Day Years [...] Comments Blood Pressure 138/88 01/31/2023 3:07 PM ENGINE DESIGNER Pulse 88 01/31/2023 3:07 PM ENGINE DESIGNER Temperature 36.8 ??C (98.3 ??F) 10/25/2022 1:01 PM CD T Respiratory Rate - - Oxygen Saturation 97% 01/31/2023 3:07 PM ENGINE DESIGNER Inhaled Oxygen Concentration - - Weight 120.2 kg (265 lb) 01/31/2023 3:07 PM ENGINE DESIGNER Height 175.3 cm (5' 9) 01/31/2023 3:07 PM ENGINE DESIGNER p t reported Body Mass Index 39.13 01/31/2023 3:07 PM ENGINE DESIGNER Plan of Treatment Not on file Care Teams Landscape Painter Relationship Specialty Start Date End Date No Ref-Primary, Physician PCP - General 10/02/22 Esme Villatoro CNM [facility] [address] [place] [address] 10/02/22 Emily Coon MD [address] [place] [address] Internal Medicine 10/02/22 Emily Coon MD [address] [place] [address] Assigned Nephrology Provider 10/27/22
--- OUTSIDE RECORDS SUMMARY | 2023-05-03 11:36 | XMS_ITS | Encounter Summary ---
Author Name Unknown Organization [facility] Address [address] [place] [address] Care Team Providers Care Credit And Loan Collections Supervisor Name Role Phone Esme Villatoro CNM Unavailable [phone] Emily Coon MD Unavailable No Ref-Primary, Physician Primary Care Provider Emily Coon MD Unavailable Encounter Details Date Type Department Care Team (Latest Contact Info) Description 01/31/2023 Travel Social History Tobacco Use Types Packs/Day [...] on filedocumented in this encounter Care Teams Credit And Loan Collections Supervisor Relationship Specialty Start Date End Date No Ref-Primary, Physician PCP - General 10/02/22 Esme Villatoro CNM [facility] [address] [place] [address] 10/02/22 Emily Coon MD [address] [place] [address] Internal Medicine 10/02/22 Emily Coon MD [address] [place] [address] Assigned Nephrology Provider 10/27/22 documented as of this encounter
--- OUTSIDE RECORDS SUMMARY | 2023-05-03 11:37 | XMS_ITS | Encounter Summary ---
Author Name Unknown Organization [facility] Address [address] [place] [address] Care Team Providers Care Hollow Tile Partition Erector Name Role Phone Esme Villatoro ROBB Unavailable [phone] Emily Coon MD Unavailable No Ref-Primary, Physician Primary Care Provider Emily Coon MD Unavailable Reason for Visit * Reason Comments Ultrasound [id number] Encounter Details Date Type Department Care Team (Late st Contact Info) Description 12/14/2022 9:15 AM CDT Office Visit [facility] [place] [address] [place] [address] Flash Card MD [address] [facility] [address] [place] [address] Encounter for follow-up ultrasound of anatomy (Primary Dx) Social History Tobacco Use Types [...] on file Sexual Orientation Not on file COVID-19 Exposure Response Date Recorded In the last 10 days, have yo u been in contact with someone who was confirmed or suspected to have Coronavirus/COVID-19? No / Unsure 12/14/2022 8:46 AM CDT documented as of this encounter Progress Notes * Flash Card MD - 12/14/2022 9:15 AM CDT Please see Imaging tab under Chart Review for details of today's US at the [facility]. Flash Card MD Maternal- Medicine documented in this encounter Plan of Treatment Not on file documented as of this encounter Visit Diagnoses Diagnosis Encounter for follow-up ultrasound of anatomy- Primary documented in this encounter Care Teams Hollow Tile Partition Erector Relationship Specialty Start Date End Date No Ref-Primary, Physician PCP - General 10/02/22 Esme Villatoro CNM [facility] [address] [place] [address] 10/02/22 Emily Coon MD [address] [place] [address] Internal Medicine 10/02/22 Emily Coon MD [address] [place] [address] Assigned Nephrology Provider 10/27/22 documented as of this encounter
--- OUTSIDE RECORDS SUMMARY | 2023-05-03 11:37 | XMS_ITS | Encounter Summary ---
Author Name Unknown Organization [facility] Address [address] [place] [address] Care Team Providers Care Foreign Trade Teacher Name Role Phone Esme Villatoro CNM Unavailable [phone] Emily Coon MD Unavailable No Ref-Primary, Physician Primary Care Provider Tam Eckert Rn RN Unavailable Unavaila ble Emily Coon MD Unavailable Encounter Details Date Type Department Care Team (Late st Contact Info) Description 11/06/2022 [facility] Medical Advice [facility] [address] [address] Tam Eckert, RN, RN Social History Tobacco Use Types Packs/Day Years Used Date Smoking Tobacco: Never Smokeless Tobacco: Never PHQ-2 Answer Date Recorded PHQ-2 Score 0 10/25/2022 Estimated Date of Delivery Comme nts Yes [...] suspected to have Coronavirus/COVID-19? No / Unsure 10/31/2022 12:49 PM CDT documented as of this encounter Plan of Treatment Not on file documented as of this encounter Visit Diagnoses Not on filedocumented in this encounter Care Teams Foreign Trade Teacher Relationship Specialty Start Date End Date No Ref-Primary, Physician PCP - General 10/02/22 Esme Villatoro CNM [address] [place] [address] 10/02/22 Emily Coon MD [address] [place] [address] Internal Medicine 10/02/22 Tam Eckert, RN, RN Specialty [facility] 10/30/22 Emily Coon MD [address] [place], [place] [address] Assigned Nephrology Provider 10/27/22 documented as of this encounter
--- OUTSIDE RECORDS SUMMARY | 2023-05-03 11:37 | XMS_ITS | Encounter Summary ---
Author Name Unknown Organization [facility] Address [address] [place] [address] Care Team Providers Care Edge Inker Uppers Name Role Phone Esme Villatoro CNM Unavailable [phone] Emily Coon MD Unavailable No Ref-Primary, Physician Primary Care Provider Emily Coon MD Unavailable Encounter Details Date Type Department Care Team (Latest Contact Info) Description 12/07/2022 Travel Social History Tobacco Use Types Packs/Day [...] suspected to have Coronavirus/COVID-19? No / Unsure 12/07/2022 2:24 PM CDT documented as of this encounter Plan of Treatment Not on file documented as of this encounter Visit Diagnoses Not on filedocumented in this encounter Care Teams Edge Inker Uppers Relationship Specialty Start Date End Date No Ref-Primary, Physician PCP - General 10/02/22 Esme Villatoro CNM [facility] [address] [place] [address] 10/02/22 Emily Coon MD [address] [place] [address] Internal Medicine 10/02/22 Emily Coon MD [address] [place] [address] Assigned Nephrology Provider 10/27/22 documented as of this encounter
--- OUTSIDE RECORDS SUMMARY | 2023-05-03 11:37 | XMS_ITS | Encounter Summary ---
Author Name Unknown Organization [facility] Address [address] [place] [address] Care Team Providers Care Paint Brush Maker Name Role Phone Esme Villatoro ROBB Unavailable [phone] Emily Coon MD Unavailable No Ref-Primary, Physician Primary Care Provider Tam Eckert Rn RN Unavailable Unavaila ble Emily Coon MD Unavailable Encounter Details Date Type Department Care Team (Late st Contact Info) Description 10/30/2022 Office Visit [facility] [address] [address] Tam Eckert, RN, RN Elevated blood pressure reading in office with white coat syndrome, without diagnosis of hypertension (Primary Dx) Social History Tobacco Use Types [...] suspected to have Coronavirus/COVID-19? No / Unsure 10/30/2022 11:41 AM CDT documented as of this encounter Progress Notes * Tam Eckert RN, RN - 10/30/2022 9:44 PM CDT 10/30-Pt arrived for ABPM aplication. See visit encounter for details. Tam Orozco RN Nephrology career development manager U darryl M documented in this encounter Procedure Notes * Tam Eckert, RN, RN - 10/30/2022 9:44 PM CDT 10/30- Denise arrived today for application of ABPM per Dr. Coon. She is a pleasant 32yo female approximently 16wks with a due date of 04/05/23. I introduced myself and explained my role in clinic and the hypertension program. I configured her device per procedure prior to pts arrival. I took three bp's on clinic monitor prior to putting on the ABPM device. Device tested two times manually and first reading of 24hr cycle. I gave Denise a log to write down sleep and wake times as well asany medication she's taking. Of note Denise is not on any antihypertensives or diuretics and is only taking her medications. See chart for further medication details. I also explained it is v hima important that the device must remain dry at all times and the procedure for showering or bathing. Denise has no further questions or concerns at this time. I gave her my card w/contact number aswell as the concrete mixing truck driver recoverer to answer any emergent after hour question's. She will come back to clinic tomorrow at 12:30 for cuff removal and return device. I explained the information captured i s downloaded and interpreted by her provider. Dr. Coon will be in contact w/her to explain results and a plan going forward. Tam Orozco RN Nephrology career development manager U darryl M documented in this encounter Plan of Treatment Not on file documented as of this encounter Visit Diagnoses Diagnosis Elevated blood pressure reading in office with white coat syndrome, without diagnosis of hypertension- Primary documented in this encounter Care Teams Paint Brush Maker Relationship Specialty Start Date End Date No Ref-Primary, Physician PCP - General 10/02/22 Esme Villatoro CNM [address] [address] 10/02/22 Emily Coon MD [address] [place] [address] Internal Medicine 10/02/22 Tam Eckert, RN, RN Specialty Perforating Machine Operator Nephrology 10/30/22 Emily Coon MD [address] [place] [address] Assigned Nephrology Provider 10/27/22 documented as of this encounter
--- OUTSIDE RECORDS SUMMARY | 2023-05-03 11:37 | XMS_ITS | Encounter Summary ---
Author Name Unknown Organization [place] Address [address] [place] [address] Care Team Providers Care Active Directory Engineer Name Role Phone Esme Villatoro CNM Unavailable [phone] Emily Coon MD Unavailable No Ref-Primary, Physician Primary Care Provider Tam Eckert Rn RN Unavailable Unavaila ble Emily Coon MD Unavailable Reason for Referral * Diagnostic Imaging Ultrasound (Routine) - Pending Review Specialty Diagnoses / Procedures Referred By Gema diaz Referred To Contact Radiology. Diagnoses related condition, antepartum Procedures [facility] US Comprehensive Single Kaitlynn Dolan MD [facility] [address] [place] [address] Fax: Referral ID Status Reason Start Date Expiration Date V isits Requested Visits Authorized [id number] Pending Review 10/29/2022 10/29/2023 1 1 Reason for Visit * Diagnostic Imaging Ultrasound (Routine) - Pending Review Specialty Diagnoses / Procedures Referred By Gema diaz Referred To Contact Radiology. Diagnoses related condition, antepartum Procedures [facility] US Comprehensive Single Kaitlynn Dolan MD [facility] [address] [place] [address] Fax: Referral ID Status Reason Start Date Expiration Date V isits Requested Visits Authorized [id number] Pending Review 10/29/2022 10/29/2023 1 1 Encounter Details Date Type Department Care Team (Latest Contact Info) Description 11/16/2022 10:13 AM CDT - 11/16/2022 11:59 PM CDT Hospital Encounter [facility] [place] [address] [place] [address] Kaitlynn Dolan MD [facility] [address] [place] [address] Flash Card MD [address] [place] [address] related condition, antepartum Discharge Disposition: Home or Self Care Social History Tobacco Use Types Packs/Day Years [...] suspected to have Coronavirus/COVID-19? No / Unsure 11/16/2022 10:12 AM CDT documented as of this encounter Medications at Time of Discharge Medication Sig Dispensed Refills Start Date End Date aspirin 81 MG EC tablet Take 81 mg by mouth daily 0 Docosahexaenoic Acid (DHA) 200 MG capsule Take 200 mg by mouth daily 0 documented as of this encounter Plan of Treatment Not on file documented as of this encounter Procedures Procedure Name Priority Date/Time Associated Diagnosis Comments [facility] COMPREHENSIVE SINGLE Routine 11/16/2022 11:10 AM CDT related condition, antepartum documented in this encounter Results * [facility] Comprehensive Single (11/16/2022 11:10 AM CDT) Anatomical Region Laterality Modality Ultrasound 11/16/2022 10:1 7 AM CDT Impressions 11/16/2022 11:27 AM CDT IMPRESSION ----- 1) Sonographic biometry agrees with gestational age predicted by LMP. 2) The profile and cardiac anatomy were not adequately visualized. 3) The anatomy was otherwise adequately visualized and appeared normal. 4) None of the anomalies commonly detected by ultrasound were evident in those structures that were visualized. 5) No markers for aneuploidy seen. Narrative 11/16/2022 11:27 AM CDT Comprehensive ----- Pat. Name: LARRY DARBY Study Date: 11/16/2022 10:17am Pat. NO: [id number] Referring ??MD: KAITLYNN DOLAN Site: [facility] Operations Support Professionals: Shon Adams RDMS : 1990 Age: 32 ----- INDICATION ----- BMI: 37 METHOD ----- Transabdominal ultrasound examination. View: Suboptimal view: limited by maternal body habitus. Suboptimal view: limited by position ----- Ware . Number of fetuses: 1 DATING ----- ? Date ?Details ?Gest. age ?IRVING LMP ?06/29/2022 ? 20 w + 0 d ? 04/05/2023 Prior assessment ? 08/31/2022 ?GA: 9 w + 1 d ? 20 w + 1 d ? 04/04/2023 U/S ? 11/16/2022 ? based upon AC, BPD, Femur, HC ?20 w + 3 d ? 04/02/2023 Assigned dating ?Dating performed on 11/16/2022, based on the LMP ?20 w + 0 d ? 04/05/2023 GENERAL EVALUATION ----- Cardiac activity present. FHR 140 bpm. movements present. Presentation cephalic. Placenta Posterior, No Previa, > 2 cm from internal os. Umbilical cord 3 vessel cord. Amniotic fluid Amount of AF: normal. MVP 5.4 cm. BIOMETRY ----- Main Biometry: BPD ?50.0 ?mm ? 21w 1d ?Hadlock OFD ?61.9 ?mm ? 20w 0d ?Nicolaides HC ?179.1 ?mm ?20w 2d ?Hadlock Cerebellum tr ?23.0 ? mm ?21w 4d ?Nicolaides AC ?156.9 ?mm ?20w 6d ?72% ?Hadlock Femur ?29.6 ? mm ?19w 1d ?Hadlock Humerus ?30.1 ?mm ? 19w 6d ?Anup Weight Calculation: EFW ? 334 ? g ? 52% ?Hadlock EFW (lb,oz) ? 0 lb 12 ? oz EFW by ?Hadlock ([id number]) Head / Face / Neck Biometry: Cost Manager ? 5.8 ? mm CM ?2.9 ? mm Nasal bone ? 6.2 ? mm Nuchal fold ? 4.0 ? mm ANATOMY ----- The following structures appear normal: Head / Neck ? Cranium. Head size. Head shape. Lateral ventricles. Choroid plexus. Midline falx. Cavum septi pellucidi. Cerebellum. Cisterna magna. ? Parenchyma. Thalami. Vermis. ? Neck. Nuchal fold. Face ? Lips. Nose. Maxilla. Mandible. Orbits. Lens. Heart / Thorax ?RVOT view. LVOT view. Situs. Aortic arch view. Bicaval view. Superior vena cava. Inferior vena cava. 3-vessel view. Cardiac position. Cardiac ? size. Cardiac rhythm. ? Diaphragm. Abdomen ? Abdominal wall. Cord insertion. Stomach. Kidneys. Bladder. Liver. Bowel. Genitals. Spine ?Cervical spine. Thoracic spine. Lumbar spine. Sacral spine. Extremities / Skeleton ?Right arm. Right hand. Left arm. Left hand. Right leg. Right foot. Left leg. Left foot. The following structures could not be adequately visualized: Face ? Profile. Heart / Thorax ?4-chamber view. Ductal arch view. 2-xjsjqj-sivcfzv view. ? Right lung. Left lung. MATERNAL STRUCTURES ----- Cervix ?Visualized ? Appearance: Appears Closed ? Cervical length 46.6 mm Right Ovary ?Not visualized Left Ovary ?Not visualized RECOMMENDATION ----- We discussed the findings on today's ultrasound with the patient. The patient had a consultation with Nephrology for presumed CHTN and proteinuria. That assessment concluded that she did not have proteinuria or meet criteria for CHTN. The patient reports normal home BPs. Should the patient have BPs consistently > 140/90 then she should be evaluated for hypertensive disorders of . We have scheduled the patient to return to [facility] in 4 weeks to complete the anatomic survey. For a prepregnancy BMP of 37 we recommend that you assess growth at 32 weeks and begin weekly testing at 37 weeks. Return to primary provider for continued care. Thank-you for the opportunity to participate in the care of this patient. If you have questions regarding today's evaluation or if we can be of further service, please contact the [facility]. anomalies may be present but not detected Procedure Note Flash Card MD - 11/16/2022 Comprehensive ----- Pat. Name:Mai DARBY Date:11/16/2022 10:17am Pat. NO: [id number] MD:KAITLYNN DOLAN [facility]Shon [facility] RDMS :1990Age:32 ----- INDICATION ----- BMI: 37 METHOD ----- Transabdominal ultrasound examination. View: Suboptimal view: limited bymaternal body habitus. Suboptimal view: limited by position ----- Ware . Number of fetuses: 1 DATING ----- DateDetailsGest. age IRVING LMP w + 0 d 04/05/2023 Prior assessment 08/31/2022 GA: 9 w +1 d20 w + 1 d 04/04/2023 U/S 11/16/2022ased upon AC, BPD, Femur, HC20 w + 3 d 04/02/2023 Assigned dating Dating performed on 11/16/2022, based onthe LMP 20 w +0 d 04/05/2023 GENERAL EVALUATION ----- Cardiac activity present. FHR 140 bpm. movements present. Presentation cephalic. Placenta Posterior, No Previa, > 2 cm from internal os. Umbilical cord 3 vessel cord. Amniotic fluid Amount of AF: normal. MVP 5.4 cm. BIOMETRY ----- Main Biometry: BPD 50.0 mm21w 1d Hadlock OFD 61.9 mm20w 0d Nicolaides HC 179.1 mm20w 2d Hadlock Cerebellum tr 23.0 mm21w 4d Nicolaides AC 156.9 mm20w 6d 72% Hadlock Femur 29.6 mm19w 1d Hadlock Humerus 30.1 mm19w 6d Anup Weight Calculation: EFW 334 g52% Hadlock EFW (lb,oz) 0 lb 12 oz EFW by Hadlock ([id number]) Head / Face / Neck Biometry: Cost Manager 5.8 mm CM 2.9 mm Nasal bone 6.2 mm Nuchal fold 4.0 mm ANATOMY ----- The following structures appear normal: Head / Neck Cranium. Head size. Head shape.Lateral ventricles. Choroid plexus. Midline falx. Cavum septi pellucidi.Cerebellum. Cisterna magna. Parenchyma. Thalami. Vermis. Neck. Nuchal fold. Face Lips. Nose. Maxilla. Mandible.Orbits. Lens. Heart / Thorax RVOT view. LVOT view. Situs. Aorticarch view. Bicaval view. Superior vena cava. Inferior vena cava. 3-vesselview. Cardiac position. Cardiac size. Cardiac rhythm. Diaphragm. Abdomen Abdominal wall. Cord insertion.Stomach. Kidneys. Bladder. Liver. Bowel. Genitals. Spine Cervical spine. Thoracic spine.Lumbar spine. Sacral spine. Extremities / Skeleton Right arm. Right hand. Left arm. Lefthand. Right leg. Right foot. Left leg. Left foot. The following structures could not be adequately visualized: Face Profile. Heart / Thorax 4-chamber view. Ductal arch view.8-ctdhsk-hcsghle view. Right lung. Left lung. MATERNAL STRUCTURES ----- Cervix Visualized Appearance: Appears Closed Cervical length 46.6 mm Right Ovary Not visualized Left Ovary Not visualized RECOMMENDATION ----- We discussed the findings on today's ultrasound with the patient. The patient had a consultation with Nephrology for presumed CHTN andproteinuria. That assessment concluded that she did not have proteinuriaor meet criteria for CHTN. The patient reports normal home BPs. Should the patient have BPsconsistently > 140/90 then she should be evaluated for hypertensivedisorders of . We have scheduled the patient to return to [facility] in 4 weeks to complete theanatomic survey. For a prepregnancy BMP of 37 we recommend that you assess growth at32 weeks and begin weekly testing at 37 weeks. Return to primary provider for continued care. Thank-you for the opportunity to participate in the care of this patient.If you have questions regarding today's evaluation or if we can be offurther service, please contact the [facility] Center. anomalies may be present but not detected IMPRESSION ----- 1) Sonographic biometry agrees with gestational age predicted by LMP. 2) The profile and cardiac anatomy were not adequately visualized. 3) The anatomy was otherwise adequately visualized and appearednormal. 4) None of the anomalies commonly detected by ultrasound were evident inthose structures that were visualized. 5) No markers for aneuploidy seen. Kaitlynn Dolan MD [facility] US ORDERABLE S documented in this encounter Visit Diagnoses Diagnosis related condition, antepartum documented in this encounter Care Teams Active Directory Engineer Relationship Specialty Start Date End Date No Ref-Primary, Physician PCP - General 10/02/22 Esme Villatoro CNM [facility] [address] [place] [address] 10/02/22 Emily Coon MD [address] [place] [address] Internal Medicine 10/02/22 Tam Eckert, RN, RN Specialty Retail Salesworker Nephrology 10/30/22 Emily Coon MD [address] [place] [address] Assigned Nephrology Provider 10/27/22 documented as of this encounter
--- OUTSIDE RECORDS SUMMARY | 2023-05-03 11:37 | XMS_ITS | Encounter Summary ---
Author Name Unknown Organization [facility] [place] Address [address] [place] [address] Care Team Providers Care Tube Splicer Name Role Phone Kerimelonie Esme CNM Unavailable [phone] Emily Coon MD Unavailable No Ref-Primary, Physician Primary Care Provider Tam Eckert Rn RN Unavailable Unavaila ble Emily Coon MD Unavailable Reason for Referral * Diagnostic Imaging Ultrasound (Routine) - Pending Review Specialty Diagnoses / Procedures Referred By Gema diaz Referred To Contact Radiology. Diagnoses Encounter for follow-up ultrasound of anatomy Procedures [facility] US Comprehensive Single F/U Flash Card MD [address] [facility] [address] [place] [address] Referral ID Status Reason Start Date Expiration Date V isits Requested Visits Authorized [id number] Pending Review 11/16/2022 11/16/2023 1 1 Reason for Visit * Reason Comments Ultrasound R1-Lmi-aqwelxpn hype rtension, Proteinuria Encounter Details Date Type Department Care Team (Late st Contact Info) Description 11/16/2022 10:45 AM CDT Office Visit [facility] [place] [address] [facility] [facility] [address] [place] [id number] Kaitlynn Dolan MD [facility] [address] [place] [address] Flash Card MD [address] [place] [address] Obesity affecting in second trimester (Primary Dx); Encounter for follow-up ultrasound of anatomy Social History Tobacco Use Types Packs/Day Years [...] Progress Notes * Flash Card MD - 11/16/2022 10:45 AM CDT Please see Imaging tab under Chart Review for details of today's US at the [facility]. Flash Card MD Maternal- Medicine documented in this encounter Plan of Treatment Not on file documented as of this encounter Results * [facility] US Comprehensive Single F/U (12/14/2022 9:24 AM CDT) Anatomical Region Laterality Modality Ultrasound 12/14/2022 8:53 AM CDT Impressions 12/14/2022 9:32 AM CDT IMPRESSION ----- 1) Growth parameters and estimated weight were consistent with appropriate for gestational age pattern of growth. 2) anatomy appeared normal for gestational age. Narrative 12/14/2022 9:32 AM CDT Comp Follow Up ----- Pat. Name: DENISE GOTTLIEB Study Date: 12/14/2022 8:53am Pat. NO: [id number] Referring ??MD: KAITLYNN DOLAN Site: [facility] Lease Out Worker: Estella Jules RDMS : 1990 Age: 32 ----- INDICATION ----- Reevaluate growth and suboptimal anatomy. METHOD ----- Transabdominal ultrasound examination. View: Sufficient ----- Ware . Number of fetuses: 1 DATING ----- ? Date ?Details ?Gest. age ?IRVING LMP ?06/29/2022 ? 24 w + 0 d ? 04/05/2023 Prior assessment ? 08/31/2022 ?GA: 9 w + 1 d ? 24 w + 1 d ? 04/04/2023 U/S ? 12/14/2022 ? based upon AC, BPD, Femur, HC ?25 w + 1 d ? 03/28/2023 Assigned dating ?Dating performed on 11/16/2022, based on the LMP ?24 w + 0 d ? 04/05/2023 GENERAL EVALUATION ----- Cardiac activity present. FHR 145 bpm. movements present. Presentation cephalic. Placenta posterior, no previa > 2 cm from internal os . Umbilical cord 3 vessel cord. Amniotic fluid Amount of AF: normal. MVP 7.8 cm. BIOMETRY ----- Main Biometry: BPD ?63.6 ?mm ? 25w 5d ?Hadlock OFD ?83.0 ?mm ? 25w 0d ?Nicolaides HC ?233.9 ?mm ?25w 3d ?Hadlock Cerebellum tr ?28.7 ? mm ?25w 5d ?Nicolaides AC ?219.8 ?mm ?26w 3d ?96% ?Hadlock Femur ?40.7 ? mm ?23w 1d ?Hadlock Weight Calculation: EFW ? 775 ? g ? 88% ?Hadlock EFW (lb,oz) ? 1 lb 11 ? oz EFW by ?Hadlock ([id number]) Head / Face / Neck Biometry: Software Developer Manager ? 3.4 ? mm CM ?3.1 ? mm Nasal bone ? 7.8 ? mm ANATOMY ----- The following structures appear normal: Head / Neck ? Cranium. Head size. Head shape. Lateral ventricles. Midline falx. Cavum septi pellucidi. Cerebellum. Cisterna magna. Thalami. Face ? Lips. Profile. Nose. Heart / Thorax ?4-chamber view. RVOT view. LVOT view. Situs. Ductal arch view. 3-fpwznf-manstqb view. ? Right lung. Left lung. Diaphragm. Abdomen ? Stomach. Kidneys. Bladder. Spine ?Cervical spine. Thoracic spine. Lumbar spine. Sacral spine. MATERNAL STRUCTURES ----- Cervix ?Suboptimal Right Ovary ?Not examined Left Ovary ?Not examined RECOMMENDATION ----- We discussed the findings on today's ultrasound with the patient. Return to primary provider for continued care. Thank-you for the opportunity to participate in the care of this patient. If you have questions regarding today's evaluation or if we can be of further service, please contact the [facility] Center. anomalies may be present but not detected Procedure Note Flash Card MD - 12/14/2022 Comp Follow Up ----- Pat. Name:Mai GOTTLIEB Date:12/14/2022 8:53am Pat. NO: [id number] MD:KAITLYNN DOLAN [facility]Estella Jules RDMS :1990Age:32 ----- INDICATION ----- Reevaluate growth and suboptimal anatomy. METHOD ----- Transabdominal ultrasound examination. View: Sufficient ----- Ware . Number of fetuses: 1 DATING ----- DateDetailsGest. age IRVING LMP 4/7/797748 w + 0 d 04/05/2023 Prior assessment 08/31/2022 GA: 9 w +1 d24 w + 1 d 04/04/2023 U/S 12/14/2022ased upon AC, BPD, Femur, HC25 w + 1 d 03/28/2023 Assigned dating Dating performed on 11/16/2022, based onthe LMP 24 w +0 d 04/05/2023 GENERAL EVALUATION ----- Cardiac activity present. FHR 145 bpm. movements present. Presentation cephalic. Placenta posterior, no previa > 2 cm from internal os . Umbilical cord 3 vessel cord. Amniotic fluid Amount of AF: normal. MVP 7.8 cm. BIOMETRY ----- Main Biometry: BPD 63.6 mm25w 5d Hadlock OFD 83.0 mm25w 0d Nicolaides HC 233.9 mm25w 3d Hadlock Cerebellum tr 28.7 mm25w 5d Nicolaides AC 219.8 mm26w 3d 96% Hadlock Femur 40.7 mm23w 1d Hadlock Weight Calculation: EFW 775 g88% Hadlock EFW (lb,oz) 1 lb 11 oz EFW by Hadlock ([id number]) Head / Face / Neck Biometry: Software Developer Manager 3.4 mm CM 3.1 mm Nasal bone 7.8 mm ANATOMY ----- The following structures appear normal: Head / Neck Cranium. Head size. Head shape.Lateral ventricles. Midline falx. Cavum septi pellucidi. Cerebellum.Cisterna magna. Thalami. Face Lips. Profile. Nose. Heart / Thorax 4-chamber view. RVOT view. LVOT view.Situs. Ductal arch view. 0-nixfjf-cgugapx view. Right lung. Left lung.Diaphragm. Abdomen Stomach. Kidneys. Bladder. Spine Cervical spine. Thoracic spine.Lumbar spine. Sacral spine. MATERNAL STRUCTURES ----- Cervix Suboptimal Right Ovary Not examined Left Ovary Not examined RECOMMENDATION ----- We discussed the findings on today's ultrasound with the patient. Return to primary provider for continued care. Thank-you for the opportunity to participate in the care of this patient.If you have questions regarding today's evaluation or if we can be offurther service, please contact the [facility]. anomalies may be present but not detected IMPRESSION ----- 1) Growth parameters and estimated weight were consistent withappropriate for gestational age pattern of growth. 2) anatomy appeared normal for gestational age. Flash Card MD IMG [facility] US ORDERABL ES documented in this encounter Visit Diagnoses Diagnosis Obesity affecting in second trimester- Primary Encounter for follow-up ultrasound of anatomy Encounter for follow-up ultrasound of anatomy documented in this encounter Care Teams Tube Splicer Relationship Specialty Start Date End Date No Ref-Primary, Physician PCP - General 10/02/22 Esme Villatoro CNM [address] [address] 10/02/22 Emily Coon MD [address] [place] [address] Internal Medicine 10/02/22 Tam Eckert, RN, RN Specialty Visual Stylist Nephrology 10/30/22 Emily Coon MD [address] [place], [place] [address] Assigned Nephrology Provider 10/27/22 documented as of this encounter
--- OUTSIDE RECORDS SUMMARY | 2023-05-03 11:37 | XMS_ITS | Encounter Summary ---
Author Name Unknown Organization [place] Address [address] [place] [address] Care Team Providers Care Entry Processor Name Role Phone Esme Villatoro CNM Unavailable [phone] Emily Coon MD Unavailable No Ref-Primary, Physician Primary Care Provider Emily Coon MD Unavailable Encounter Details Date Type Department Care Team (Latest Contact Info) Description 01/28/2023 Travel Social History Tobacco Use Types Packs/Day [...] on filedocumented in this encounter Care Teams Entry Processor Relationship Specialty Start Date End Date No Ref-Primary, Physician PCP - General 10/02/[address] [facility] [address] [place] [address] 10/02/22 Emily Coon MD [address] [place] [address] Internal Medicine 10/02/22 Emily Coon MD [address] [place] [address] Assigned Nephrology Provider 10/27/22 documented as of this encounter
--- OUTSIDE RECORDS SUMMARY | 2023-05-03 11:37 | XMS_ITS | Encounter Summary ---
Author Name Unknown Organization [place] Address [address] [place] [address] Care Team Providers Care Ux Consultant Name Role Phone Kerimelonie Esme ZAMUDIO Unavailable [phone] Emily Coon MD Unavailable No Ref-Primary, Physician Primary Care Provider Tam Eckert Rn RN Unavailable Unavaila ble Emily Coon MD Unavailable Encounter Details Date Type Department Care Team (Late st Contact Info) Description 11/06/2022 [facility] [address] [address] Emily Coon MD [address] [place] [address] Social History Tobacco Use Types [...] on filedocumented in this encounter Care Teams Ux Consultant Relationship Specialty Start Date End Date No Ref-Primary, Physician PCP - General 10/02/22 Esme Villatoro CNM [address] [address] 10/02/22 Emily Coon MD [address] [place] [address] Internal Medicine 10/02/22 Tam Eckert, RN, RN Specialty Mold Chipper Nephrology 10/30/22 Emily Coon MD [address] [place] [address] Assigned Nephrology Provider 10/27/22 documented as of this encounter
--- OUTSIDE RECORDS SUMMARY | 2023-05-03 11:37 | XMS_ITS | Encounter Summary ---
Author Name Unknown Organization [place] Address [address] [place] [address] Care Team Providers Care Construction Framer Name Role Phone Esme Villatoro CNM Unavailable [phone] Emily Coon MD Unavailable No Ref-Primary, Physician Primary Care Provider Emily Coon MD Unavailable Encounter Details Date Type Department Care Team (Late st Contact Info) Description 01/18/2023 [facility] Medical Advice [facility] [address] [address] Tanmay Ulloa Social History Tobacco Use Types Packs/Day Years [...] on filedocumented in this encounter Care Teams Construction Framer Relationship Specialty Start Date End Date No Ref-Primary, Physician PCP - General 10/02/22 Esme Villatoro CNM [address] [address] 10/02/22 Emily Coon MD [address] [place] [address] Internal Medicine 10/02/22 Emily Coon MD [address] [place] [address] Assigned Nephrology Provider 10/27/22 documented as of this encounter
--- OUTSIDE RECORDS SUMMARY | 2023-05-03 11:37 | XMS_ITS | Encounter Summary ---
Author Name Unknown Organization [place] Address [address] [place] [address] Care Team Providers Care Air Shovel Operator Name Role Phone Esme Villatoro ROBB Unavailable [phone] Emily Coon MD Unavailable No Ref-Primary, Physician Primary Care Provider Emily Coon MD Unavailable Encounter Details Date Type Department Care Team (Late st Contact Info) Description 01/18/2023 Orders Only [facility] [address] [address] Emily Coon MD [address] [place] [address] Chronic kidney disease, unspecified CKD stage (Primary Dx); Chronic hypertension affecting ; Elevated blood pressure reading in office with white coat syndrome, without diagnosis of hypertension Social History Tobacco Use Types Packs/Day Years [...] documented as of this encounter Results * UA with Microscopic (01/28/2023 2:[address]) Color Urine Yellow Colorless, Straw, Light Yellow, Yellow 01/28/2023 2:[address] [facility] Appearance Urine Clear Clear 01/29/20 2:[address] [facility] Glucose Urine Negative Negative mg/dL 01/28/2023 2:[address] [facility] Bilirubin Urine Negative Negative 2:[address]IVER [facility] Ketones Urine Negative Negative mg/dL 01/28/2023 2:[address] [facility] Specific Pesotum Urine 1.015 1.003 - 1.035 01/28/2023 2:[address] [facility] Blood Urine Negative Negative 01/28/2023 2:[address] [facility] pH Urine 7.0 5.0 - 7.0 01/28/2023 2:[address] [facility] Protein Albumin Urine Negative Negative mg/dL 01/28/2023 2:[address] [facility] Urobilinogen Urine 0.2 0.2, 1.0 E.U./dL 01/28/2023 2:[address] [facility] Nitrite Urine Negative Negative 01/28/2023 2:[address] [facility] Leukocyte Esterase Urine Negative Negative 01/28/2023 2:[address] [facility] Urine URINE SPECIMEN OBTAINED BY CLEAN CATCH PROCEDURE / Unknown Non-blood Collection / Unknown 01/28/2023 2:[address]IVER 01/28/2023 2:[address] Emily Coon MD LAB - URINE ORDERABL ES [facility] [address] [facility] [address] [place] [phone] [phone] * Albumin Random Urine Quantitative with Creat Ratio (01/28/2023 2:[address]IVER) Creatinine Urine mg/dL 113.0 mg/dL 01/29/2023 12:[address] [facility] Comment: The reference ranges have not been established in urine creatinine. The results should be integrated into the clinical context for interpretation. The reference ranges have not been established in urine creatinine. The results should be integrated into the clinical context for interpretation. Albumin Urine mg/L <12.0 mg/L 2022 12:[address] [facility] Comment:The reference ranges have not been established in urine albumin. The results should be integrated into the clinical context for interpretation. Albumin Urine mg/g Cr 01/29/2023 12:[address] [facility] Comment: Unable to calculate, urine albumin and/or urine creatinine is outside detectable limits. Microalbuminuria is defined as an albumin:creatinine ratio of 17 to 299 for males and 25 to 299 for females. A ratio of albumin:creatinine of 300 or higher is indicative of overt proteinuria. Due to biologic variability, positive results should be confirmed by a second, first-morning random or 24-hour timed urine specimen. If there is discrepancy, a third specimen is recommended. When 2 out of 3 results are in the microalbuminuria range, this is evidence for incipient nephropathy and warrants increased efforts at glucose control, blood pressure control, and institution of therapy with an pjwzfvnvscq-kqlfcinhkx-ekiiag (TODD) inhibitor (if the patient can tolerate it). ?? Urine URINE SPECIMEN OBTAINED BY CLEAN CATCH PROCEDURE / Unknown Non-blood Collection / Unknown 01/28/2023 2:[address]IVER 01/28/2023 2:[address] Emily Coon MD LAB - URINE ORDERABL ES [facility] [address] [facility], [address] [place] [phone] [phone] * Protein random urine (01/28/2023 2:[address]IVER) Total Protein Urine mg/dL 12.1 mg/dL 01/29/2023 12:[address] [facility] Comment:The reference ranges have not been established in urine protein. The results should be integrated into the clinical context for interpretation. Total Protein Urine mg/mg Creat 0.11 0.00 - 0.20 mg/mg Cr 01/29/2023 12:[address] [facility] Creatinine Urine mg/dL 113.0 mg/dL 01/29/2023 12:[address] [facility] Comment:The reference ranges have not been established in urine creatinine. The results should be integrated into the clinical context for interpretation. Urine URINE SPECIMEN OBTAINED BY CLEAN CATCH PROCEDURE / Unknown Non-blood Collection / Unknown 01/28/2023 2:[address] 01/28/2023 2:[address] Emily Coon MD LAB - URINE ORDERABL ES [facility] [address] [facility], [address] [address], [facility] [phone] * (ABNORMAL) CBC with platelets (01/28/2023 2:[address]IVER) WBC Count 7.2 4.0 - 11.0 10e3/uL 01/28/2023 2:[address] [facility] RBC Count 3.63(L) 3.80 - 5.20 10e6/uL 01/28/2023 2:[address]IVER [facility] Hemoglobin 11.1(L) 11.7 - 15.7 g/dL 01/28/2023 2:[address] [facility] Hematocrit 33.8(L) 35.0 - 47.0 % 01/28/2023 2:[address] [facility] MCV 93 78 - 100 fL 01/28/2023 2:[address] [facility] MCH 30.6 26.5 - 33.0 pg 01/28/2023 2:[address] [facility] MCHC 32.8 31.5 - 36.5 g/dL 01/28/2023 2:[address] [facility] RDW 11.9 10.0 - 15.0 % 01/28/2023 2:[address]IVER [facility] Platelet Count 200 150 - 450 10e3/uL 01/28/2023 2:[address]IVER [facility] Blood BLOOD SPECIMEN / Unknown Venipuncture / Unknown 01/28/2023 2:[address]IVER 01/28/2023 2:[address] Emily Coon MD LAB - BLOOD ORDERABL ES [facility] [address] [facility] [address] [place] [address], [place] [phone] * (ABNORMAL) Renal panel (01/28/2023 2:[address]IVER) Sodium 136 135 - 145 mmol/L 01/29/2023 12:[address] [facility] Comment:Reference intervals for this test were updated on 12/18/2022 to more accurately reflect our healthy population. There may be differences in the flagging of prior results with similar values performed with this method. Interpretation of those prior results can be made in the context of the updated reference intervals. Potassium 3.3(L) 3.4 - 5.3 mmol/L 01/29/2023 12:[address] [facility] Chloride 100 98 - 107 mmol/L 01/29/2023 12:[address] [facility] Carbon Dioxide (CO2) 24 22 - 29 mmol/L 01/29/2023 12:[address] [facility] Anion Gap 12 7 - 15 mmol/L 01/29/2023 12:[address] [facility] Glucose 109(H) 70 - 99 mg/dL 01/29/2023 12:[address] [facility] Urea Nitrogen 6.2 6.0 - 20.0 mg/dL 01/29/2023 12:[address] [facility] Creatinine 0.79 0.51 - 0.95 mg/dL 01/29/2023 12:[address] [facility] GFR Estimate >90 >60 mL/min/1. 73m2 01/29/2023 12:[address] [facility] Calcium 9.5 8.6 - 10.0 mg/dL 01/29/2023 12:[address] [facility] Albumin 3.9 3.5 - 5.2 g/dL 01/29/2023 12:[address] [facility] Phosphorus 3.8 2.5 - 4.5 mg/dL 01/29/2023 12:[address] [facility] Blood BLOOD SPECIMEN / Unknown Venipuncture / Unknown 01/28/2023 2:[address]IVER 01/28/2023 2:[address] Emily Coon MD LAB - BLOOD ORDERABL ES [facility] [address] [facility] [address] [facility], [address] [place] [address], [facility] [phone] documented in this encounter Visit Diagnoses Diagnosis Chronic kidney disease, unspecified CKD stage- Primary Chronic hypertension affecting Elevated blood pressure reading in office with white coat syndrome, without diagnosis of hypertension documented in this encounter Care Teams Air Shovel Operator Relationship Specialty Start Date End Date No Ref-Primary, Physician PCP - General 10/02/22 Esme Villatoro CNM [address] [address] 10/02/22 Emily Coon MD [address] [place] [address] Internal Medicine 10/02/22 Emily Coon MD [address] [place] [address] Assigned Nephrology Provider 10/27/22 documented as of this encounter
--- OUTSIDE RECORDS SUMMARY | 2023-05-03 11:37 | XMS_ITS | Encounter Summary ---
Author Name Unknown Organization [facility] Address [address] [place] [address] Care Team Providers Care Terminologist Name Role Phone Esme Villatoro CNM Unavailable [phone] Emily Coon MD Unavailable No Ref-Primary, Physician Primary Care Provider Tam Eckert Rn RN Unavailable Unavaila ble Emily Coon MD Unavailable Encounter Details Date Type Department Care Team (Latest Contact Info) Description 10/31/2022 Travel Social History Tobacco Use Types Packs/Day [...] on filedocumented in this encounter Care Teams Terminologist Relationship Specialty Start Date End Date No Ref-Primary, Physician PCP - General 10/02/22 Esme Villatoro CNM [address] [address] 10/02/22 Emily Coon MD [address] [place] [address] Internal Medicine 10/02/22 Tam Eckert, RN, RN Specialty Accounts Officer Nephrology 10/30/22 Emily Coon MD [address] [place] [address] Assigned Nephrology Provider 10/27/22 documented as of this encounter
--- OUTSIDE RECORDS SUMMARY | 2023-05-03 11:37 | XMS_ITS | Encounter Summary ---
Author Name Unknown Organization [facility] Address [address] [place] [address] Care Team Providers Care Senior Cytotechnologist Name Role Phone Esme Villatoro CNM Unavailable [phone] Emily Coon MD Unavailable No Ref-Primary, Physician Primary Care Provider Emily Coon MD Unavailable Encounter Details Date Type Department Care Team (Latest Contact Info) Description 12/14/2022 Travel Social History Tobacco Use Types Packs/Day [...] AM CDT documented as of this encounter Plan of Treatment Not on file documented as of this encounter Visit Diagnoses Not on filedocumented in this encounter Care Teams Senior Cytotechnologist Relationship Specialty Start Date End Date No Ref-Primary, Physician PCP - General 10/02/22 Esme Villatoro CNM [address] [address] 10/02/22 Emily Coon MD [address] [place] [address] MD Internal Medicine 10/02/22 Emily Coon MD [address] [place] [address] Assigned Nephrology Provider 10/27/22 documented as of this encounter
--- OUTSIDE RECORDS SUMMARY | 2023-05-03 11:37 | XMS_ITS | Encounter Summary ---
Author Name Unknown Organization [facility] Address [facility] [place] [address] Care Team Providers Care Supervisor Vegetable Farming Name Role Phone Esme Villatoro ROBB Unavailable [phone] Emily Coon MD Unavailable No Ref-Primary, Physician Primary Care Provider Tam Eckert Rn RN Unavailable Unavaila ble Emily Coon MD Unavailable Reason for Visit * Reason Comments Hypertension Ambulatory Blood Pre ssure Monitoring for White Coat Hypertension Encounter Details Date Type Department Care Team (Latest Contact Info) Description 11/03/2022 Documentation Only [facility] [address] [address] Arelis Sullivan MD [address] [place] [address] Hypertension (Ambulatory Blood Pressure Mo... Social History Tobacco Use Types Packs/Day Years [...] PM CDT documented as of this encounter Progress Notes * Arelis Sullivan MD - 11/03/2022 10:[address] Coon, Your patient underwent a 24-hour ambulatory blood pressure monitor study using the [employer] [address] monitor on 10/30/2022 at our institution. The ABPM was performed to evaluate for White Coat Hypertension and rule out hypertension of . There were 50 (94%) valid readings. Patient's readings ACC/AHA Cutoff for Hypertension Overall 117/66 >125/75 Daytime 120/68 >130/80 Nighttime 109/61 >110/65 The average heart rate was 86 bpm The daytime loads are as follows: Systolic Load (> or = 135 mm Hg) = 6% (normal) Diastolic Load (> or = 85 mm Hg) = 4% (normal) My impression is that the 24-hour blood pressure it within normal limits and that she has evidence of white-coat effect. I do not recommend any changes to her management at this time. White coat effect is associated with an elevated risk of transitioning to uncontrolled hypertension, so she would benefit from either annual ABPM, or home blood pressure monitoring with at least five consecutive days of readings (two readings in the morning before medications and two readings in the evening) everythree months. Sincerely, Arelis Sullivan MD documented in this encounter Plan of Treatment Not on file documented as of this encounter Visit Diagnoses Not on filedocumented in this encounter Care Teams Supervisor Vegetable Farming Relationship Specialty Start Date End Date No Ref-Primary, Physician PCP - General 10/02/22 Esme Villatoro CNM [facility] [address] [place] [address] 10/02/22 Emily Coon MD [address] [place] [address] Internal Medicine 10/02/22 Tam Eckert, RN, RN Specialty Inlayer Nephrology 10/30/22 Emily Coon MD [address] [place] [address] Assigned Nephrology Provider 10/27/22 documented as of this encounter
--- OUTSIDE RECORDS SUMMARY | 2023-05-03 11:37 | XMS_ITS | Encounter Summary ---
Author Name Unknown Organization [facility] Address [address] [place] [address] Care Team Providers Care Agricultural Engineering Teacher Name Role Phone Esme Villatoro CNM Unavailable [phone] Emily Coon MD Unavailable No Ref-Primary, Physician Primary Care Provider Tam Eckert Rn RN Unavailable Unavaila ble Emily Coon MD Unavailable Encounter Details Date Type Department Care Team (Latest Contact Info) Description 11/16/2022 Travel Social History Tobacco Use Types Packs/Day [...] on filedocumented in this encounter Care Teams Agricultural Engineering Teacher Relationship Specialty Start Date End Date No Ref-Primary, Physician PCP - General 10/02/22 Esme Villatoro CNM [address] [address] 10/02/22 Emily Coon MD [address] [place] [address] Internal Medicine 10/02/22 Tam Eckert, RN, RN Specialty Underground Repairer Nephrology 10/30/22 Emily Coon MD [address] [place] [address] Assigned Nephrology Provider 10/27/22 documented as of this encounter
--- OUTSIDE RECORDS SUMMARY | 2023-05-03 11:37 | XMS_ITS | Encounter Summary ---
Author Name Unknown Organization [facility] Address [address] [place] [address] Care Team Providers Care Photo Graphics Librarian Name Role Phone Esme Villatoro CNM Unavailable [phone] Emily Coon MD Unavailable No Ref-Primary, Physician Primary Care Provider Emily Coon MD Unavailable Reason for Referral * Diagnostic Imaging Ultrasound (Routine) - Pending Review Specialty Diagnoses / Procedures Referred By Contac t Referred To Contact Radiology. Diagnoses Encounter for follow-up ultrasound of anatomy Procedures [facility] US Comprehensive Single F/U Flash Card MD [address] [place] [address] Referral ID Status Reason Start Date Expiration Date V isits Requested Visits Authorized [id number] Pending Review 11/16/2022 11/16/2023 1 1 Reason for Visit * Diagnostic Imaging Ultrasound (Routine) - Pending Review Specialty Diagnoses / Procedures Referred By Contac t Referred To Contact Radiology. Diagnoses Encounter for follow-up ultrasound of anatomy Procedures [facility] US Comprehensive Single F/U Flash Card MD [address] [place] [address] Referral ID Status Reason Start Date Expiration Date V isits Requested Visits Authorized [id number] Pending Review 11/16/2022 11/16/2023 1 1 Encounter Details Date Type Department Care Team (Latest Contact Info) Description 12/14/2022 8:45 AM CDT - 12/14/2022 11:59 PM CDT Hospital Encounter [facility] [place] [address] [place] [address] Flash Card MD [address] [place] [address] Encounter for follow-up ultrasound of anatomy Discharge Disposition: Home or Self Care Social [...] Procedure Name Priority Date/Time Associated Diagnosis Comments [facility] US COMPREHENSIVE SINGLE F/U Routine 12/14/2022 9:24 AM CDT Encounter for follow-up ultrasound of anatomy documented in this encounter Results * [facility] US Comprehensive Single F/U (12/14/2022 9:24 AM CDT) Anatomical Region Laterality Modality Ultrasound 12/14/2022 8:53 AM CDT Impressions 12/14/2022 9:32 AM CDT IMPRESSION ----- 1) Growth parameters and estimated weight were consistent with appropriate for gestational age pattern of growth. 2) anatomy appeared normal for gestational age. Narrative 12/14/2022 9:32 AM CDT Comp Follow Up ----- Pat. Name: LARRY DARBY Study Date: 12/14/2022 8:53am Pat. NO: [id number] Referring ??MD: GILBERT DOLAN Site: [facility] Monitor: Estella Jules RDMS : 1990 Age: 32 [...] lb 11 ? oz EFW by ?Hadlock ([id number]) Head / Face / Neck Biometry: Ccie ? 3.4 ? mm CM ?3.1 ? mm Nasal bone ? 7.8 ? mm ANATOMY ----- The following structures appear normal: Head / Neck ? Cranium. Head size. Head shape. Lateral ventricles. Midline falx. Cavum septi pellucidi. Cerebellum. Cisterna magna. Thalami. Face ? Lips. Profile. Nose. Heart / Thorax ?4-chamber view. RVOT view. LVOT view. Situs. Ductal arch view. 4-minpko-lhujyma view. ? Right lung. Left lung. Diaphragm. [...] 12/14/2022 Comp Follow Up ----- Pat. Name:Mai DARBY Date:12/14/2022 8:53am Pat. NO: [id number] MD:GILBERT DOLAN [facility]:Estella Jules RDMS :1990Age:32 ----- INDICATION ----- Reevaluate [...] (lb,oz) 1 lb 11 oz EFW by Raul ([id number]) Head / Face / Neck Biometry: Ccie 3.4 mm CM 3.1 mm Nasal bone 7.8 mm ANATOMY ----- The following structures appear normal: Head / Neck Cranium. Head size. Head shape.Lateral ventricles. Midline falx. Cavum septi pellucidi. Cerebellum.Cisterna magna. Thalami. Face Lips. Profile. Nose. Heart / Thorax 4-chamber view. RVOT view. LVOT view.Situs. Ductal arch view. 2-aukzrt-ksaekik view. Right lung. Left lung.Diaphragm. Abdomen Stomach. [...] normal for gestational age. Flash Card MD [facility] US ORDERABL ES documented in this encounter Visit Diagnoses Diagnosis Encounter for follow-up ultrasound of anatomy documented in this encounter Care Teams Photo Graphics Librarian Relationship Specialty Start Date End Date No Ref-Primary, Physician PCP - General 10/02/22 Esme Villatoro CNM [address] [address] 10/02/22 Emily Coon MD [address] [place] [address] Internal Medicine 10/02/22 Emily Coon MD [address] [place], [place] [address] Assigned Nephrology Provider 10/27/22 documented as of this encounter
--- OUTSIDE RECORDS SUMMARY | 2023-05-03 11:37 | XMS_ITS | Encounter Summary ---
Author Name Unknown Organization [facility] Address [address] [place] [address] Care Team Providers Care Verifier Operator Name Role Phone Esme Villatoro CNM Unavailable [phone] Emily Coon MD Unavailable No Ref-Primary, Physician Primary Care Provider Tam Eckert Rn RN Unavailable Unavaila ble Emily Coon MD Unavailable Encounter Details Date Type Department Care Team (Latest Contact Info) Description 11/13/2022 Travel Social History Tobacco Use Types Packs/Day [...] suspected to have Coronavirus/COVID-19? No / Unsure 11/13/2022 10:20 AM CDT documented as of this encounter Plan of Treatment Not on file documented as of this encounter Visit Diagnoses Not on filedocumented in this encounter Care Teams Verifier Operator Relationship Specialty Start Date End Date No Ref-Primary, Physician PCP - General 10/02/22 Esme Villatoro CNM [address] [address] 10/02/22 Emily Coon MD [address] [place] [address] Internal Medicine 10/02/22 Tam Eckert, RN, RN Specialty Conference Interpreter Nephrology 10/30/22 Emily Coon MD [address] [place] [address] Assigned Nephrology Provider 10/27/22 documented as of this encounter
--- OUTSIDE RECORDS SUMMARY | 2023-05-03 11:37 | XMS_ITS | Encounter Summary ---
Author Name Unknown Organization [facility] Address [address] [place] [address] Care Team Providers Care Sales Manager Name Role Phone Kerimelonie Esme ZAMUDIO Unavailable [phone] Emily Coon MD Unavailable No Ref-Primary, Physician Primary Care Provider Tam Eckert Rn RN Unavailable Unavaila ble Emily Coon MD Unavailable Reason for Visit * Reason Comments Ultrasound V5-Yva-raetknfk hype rtension, proteinuria Encounter Details Date Type Department Care Team (Late st Contact Info) Description 11/07/2022 PRE VISIT [facility] [place] [address] [facility] [address] [place] [address] Renetta Nieto RN Ultrasound ([id number] hypertension, proteinuria) Social History Tobacco Use Types Packs/Day Years [...] on filedocumented in this encounter Care Teams Sales Manager Relationship Specialty Start Date End Date No Ref-Primary, Physician PCP - General 10/02/22 Esme Villatoro CNM [address] [address] 10/02/22 Emily Coon MD [address] [place] [address] Internal Medicine 10/02/22 Tam Eckert, RN, RN Specialty Polymer Specialist Nephrology 10/30/22 Emily Coon MD [address] [place] [address] Assigned Nephrology Provider 10/27/22 documented as of this encounter
--- OUTSIDE RECORDS SUMMARY | 2023-05-03 11:37 | XMS_ITS | Encounter Summary ---
Author Name Unknown Organization [place] Address [address] [place] [address] Care Team Providers Care Waiter Name Role Phone Kerimelonie Esme ZAMUDIO Unavailable [phone] Emily Coon MD Unavailable No Ref-Primary, Physician Primary Care Provider Emily Coon MD Unavailable Encounter Details Date Type Department Care Team (Late st Contact Info) Description 01/28/2023 2:15 PM JUSTICE PROFESSOR Lab [facility] [address] [place] [address] [address] [place] [address] Chronic kidney disease, unspecified CKD stage; Elevated blood pressure reading in office with [...] Procedure Name Priority Date/Time Associated Diagnosis Comments ROUTINE UA WITH MICROSCOPIC Routine 01/28/2023 2:25 PM JUSTICE PROFESSOR Chronic kidney disease, unspecified CKD stage Elevated blood pressure reading in office with white coat syndrome, without diagnosis of hypertension PROTEIN RANDOM URINE Routine 01/28/2023 2:25 PM JUSTICE PROFESSOR Chronic kidney disease, unspecified CKD stage Elevated blood pressure reading in office with white coat syndrome, without diagnosis of hypertension URINE MICROSCOPIC EXAM Routine 01/28/2023 2:25 PM JUSTICE PROFESSOR Chronic kidney disease, unspecified CKD stage Elevated blood pressure reading in office with white coat syndrome, without diagnosis of hypertension ALBUMIN RANDOM URINE QUANTITATIVE Routine 01/28/2023 2:25 PM JUSTICE PROFESSOR Chronic kidney disease, unspecified CKD stage Elevated blood pressure reading in office with white coat syndrome, without diagnosis of hypertension RENAL PANEL Routine 01/28/2023 2:22 PM JUSTICE PROFESSOR Chronic kidney disease, unspecified CKD stage Elevated blood pressure reading in office with white coat syndrome, without diagnosis of hypertension CBC WITH PLATELETS Routine 01/28/2023 2: 22 PM JUSTICE PROFESSOR Chronic kidney disease, unspecified CKD stage Elevated blood pressure reading in office with white coat syndrome, without diagnosis of hypertension documented in this encounter Results * (ABNORMAL) Urine Microscopic Exam (01/28/2023 2:25 PM JUSTICE PROFESSOR) Bacteria Urine Moderate( A) None Seen /HPF ANKIT 01/28/2023 2:38 PM JUSTICE PROFESSOR [facility] RBC Urine 0-2 0-2 /HPF /HPF ANKIT 01/28/2023 2:38 PM JUSTICE PROFESSOR [facility] WBC Urine 0-5 0-5 /HPF /HPF ANKIT 01/28/2023 2:38 PM JUSTICE PROFESSOR [facility] Squamous Epithelials Urine Moderate( A) None Seen /LPF ANKIT 01/28/2023 2:38 PM JUSTICE PROFESSOR [facility] Mucus Urine Present(A ) None Seen /LPF ANKIT 01/28/2023 2:38 PM JUSTICE PROFESSOR [facility] Urine URINE SPECIMEN OBTAINED BY CLEAN CATCH PROCEDURE / Unknown Non-blood Collection / Unknown 01/28/2023 2:25 PM JUSTICE PROFESSOR 01/28/2023 2:25 PM JUSTICE PROFESSOR Emily Coon MD LAB - URINE ORDERABL ES [facility] [address] [place] [address], [facility] [phone] * UA with Microscopic (01/28/2023 2:25 PM JUSTICE PROFESSOR) Color Urine Yellow Colorless, Straw, Light Yellow, Yellow 01/28/2023 2:27 PM JUSTICE PROFESSOR [facility] Appearance Urine Clear Clear 01/29/20 2:27 PM JUSTICE PROFESSOR [facility] Glucose Urine Negative Negative mg/dL 01/28/2023 2:27 PM JUSTICE PROFESSOR [facility] Bilirubin Urine Negative Negative 2:27 PM JUSTICE PROFESSOR [facility] Ketones Urine Negative Negative mg/dL 01/28/2023 2:27 PM JUSTICE PROFESSOR [facility] Specific [place] Urine 1.015 1.003 - 1.035 01/28/2023 2:27 PM JUSTICE PROFESSOR [facility] Blood Urine Negative Negative 01/28/2023 2:27 PM JUSTICE PROFESSOR [facility] pH Urine 7.0 5.0 - 7.0 01/28/2023 2:27 PM JUSTICE PROFESSOR [facility] Protein Albumin Urine Negative Negative mg/dL 01/28/2023 2:27 PM JUSTICE PROFESSOR [facility] Urobilinogen Urine 0.2 0.2, 1.0 E.U./dL 01/28/2023 2:27 PM JUSTICE PROFESSOR [facility] Nitrite Urine Negative Negative 01/28/2023 2:27 PM JUSTICE PROFESSOR [facility] Leukocyte Esterase Urine Negative Negative 01/28/2023 2:27 PM JUSTICE PROFESSOR [facility] Urine URINE SPECIMEN OBTAINED BY CLEAN CATCH PROCEDURE / Unknown Non-blood Collection / Unknown 01/28/2023 2:25 PM JUSTICE PROFESSOR 01/28/2023 2:25 PM JUSTICE PROFESSOR Emily Coon MD LAB - URINE ORDERABL ES [facility] [address] [place] [address], [facility] [phone] * Albumin Random Urine Quantitative with Creat Ratio (01/28/2023 2:25 PM JUSTICE PROFESSOR) Creatinine Urine mg/dL 113.0 mg/dL 01/29/2023 12:06 AM JUSTICE PROFESSOR [facility] Comment: The reference ranges have not been established in urine creatinine. The results should be integrated into the clinical context for interpretation. The reference ranges have not been established in urine creatinine. The results should be integrated into the clinical context for interpretation. Albumin Urine mg/L <12.0 mg/L 2022 12:06 AM JUSTICE PROFESSOR [facility] Comment:The reference ranges have not been established in urine albumin. The results should be integrated into the clinical context for interpretation. Albumin Urine mg/g Cr 01/29/2023 12:06 AM JUSTICE PROFESSOR [facility] Comment: Unable to calculate, urine [...] control, and institution of therapy with an irwdsjbuadl-utklbyhjhb-jekudu (TODD) inhibitor (if the patient can tolerate it). ?? Urine URINE SPECIMEN OBTAINED BY CLEAN CATCH PROCEDURE / Unknown Non-blood Collection / Unknown 01/28/2023 2:25 PM JUSTICE PROFESSOR 01/28/2023 2:25 PM JUSTICE PROFESSOR Emily Coon MD LAB - URINE ORDERABL ES [facility] [address] [place] [address], [facility] [phone] * Protein random urine (01/28/2023 2:25 PM JUSTICE PROFESSOR) Total Protein Urine mg/dL 12.1 mg/dL 01/29/2023 12:01 AM JUSTICE PROFESSOR [facility] Comment:The reference ranges have not been established in urine protein. The results should be integrated into the clinical context for interpretation. Total Protein Urine mg/mg Creat 0.11 0.00 - 0.20 mg/mg Cr 01/29/2023 12:01 AM JUSTICE PROFESSOR [facility] Creatinine Urine mg/dL 113.0 mg/dL 01/29/2023 12:01 AM JUSTICE PROFESSOR [facility] Comment:The reference ranges have not been established in urine creatinine. The results should be integrated into the clinical context for interpretation. Urine URINE SPECIMEN OBTAINED BY CLEAN CATCH PROCEDURE / Unknown Non-blood Collection / Unknown 01/28/2023 2:25 PM JUSTICE PROFESSOR 01/28/2023 2:25 PM JUSTICE PROFESSOR Emily Coon MD LAB - URINE ORDERABL ES [facility] [place] [facility] [address] [place] [address], [facility] [phone] * (ABNORMAL) CBC with platelets (01/28/2023 2:22 PM JUSTICE PROFESSOR) WBC Count 7.2 4.0 - 11.0 10e3/uL 01/28/2023 2:28 PM JUSTICE PROFESSOR [facility] RBC Count 3.63(L) 3.80 - 5.20 10e6/uL 01/28/2023 2:28 PM JUSTICE PROFESSOR [facility] Hemoglobin 11.1(L) 11.7 - 15.7 g/dL 01/28/2023 2:28 PM JUSTICE PROFESSOR [facility] Hematocrit 33.8(L) 35.0 - 47.0 % 01/28/2023 2:28 PM JUSTICE PROFESSOR [facility] MCV 93 78 - 100 fL 01/28/2023 2:28 PM JUSTICE PROFESSOR [facility] MCH 30.6 26.5 - 33.0 pg 01/28/2023 2:28 PM JUSTICE PROFESSOR [facility] MCHC 32.8 31.5 - 36.5 g/dL 01/28/2023 2:28 PM JUSTICE PROFESSOR [facility] RDW 11.9 10.0 - 15.0 % 01/28/2023 2:28 PM JUSTICE PROFESSOR [facility] Platelet Count 200 150 - 450 10e3/uL 01/28/2023 2:28 PM JUSTICE PROFESSOR [facility] Blood BLOOD SPECIMEN / Unknown Venipuncture / Unknown 01/28/2023 2:22 PM JUSTICE PROFESSOR 01/28/2023 2:22 PM JUSTICE PROFESSOR Emily Coon MD LAB - BLOOD ORDERABL ES [facility] [address] [place] [address], [facility] [phone] * (ABNORMAL) Renal panel (01/28/2023 2:22 PM JUSTICE PROFESSOR) Sodium 136 135 - 145 mmol/L 01/29/2023 12:00 AM JUSTICE PROFESSOR [facility] Comment:Reference intervals for this test were updated on 12/18/2022 to more accurately reflect our healthy population. There may be differences in the flagging of prior results with similar values performed with this method. Interpretation of those prior results can be made in the context of the updated reference intervals. Potassium 3.3(L) 3.4 - 5.3 mmol/L 01/29/2023 12:00 AM JUSTICE PROFESSOR [facility] Chloride 100 98 - 107 mmol/L 01/29/2023 12:00 AM JUSTICE PROFESSOR [facility] Carbon Dioxide (CO2) 24 22 - 29 mmol/L 01/29/2023 12:00 AM JUSTICE PROFESSOR [facility] Anion Gap 12 7 - 15 mmol/L 01/29/2023 12:00 AM JUSTICE PROFESSOR [facility] Glucose 109(H) 70 - 99 mg/dL 01/29/2023 12:00 AM JUSTICE PROFESSOR [facility] Urea Nitrogen 6.2 6.0 - 20.0 mg/dL 01/29/2023 12:00 AM JUSTICE PROFESSOR [facility] Creatinine 0.79 0.51 - 0.95 mg/dL 01/29/2023 12:00 AM JUSTICE PROFESSOR [facility] GFR Estimate >90 >60 mL/min/1. 73m2 01/29/2023 12:00 AM JUSTICE PROFESSOR [facility] Calcium 9.5 8.6 - 10.0 mg/dL 01/29/2023 12:00 AM JUSTICE PROFESSOR [facility] Albumin 3.9 3.5 - 5.2 g/dL 01/29/2023 12:00 AM JUSTICE PROFESSOR [facility] Phosphorus 3.8 2.5 - 4.5 mg/dL 01/29/2023 12:00 AM JUSTICE PROFESSOR [facility] Blood BLOOD SPECIMEN / Unknown Venipuncture / Unknown 01/28/2023 2:22 PM JUSTICE PROFESSOR 01/28/2023 2:22 PM JUSTICE PROFESSOR Emily Coon MD LAB - BLOOD ORDERABL ES [facility] [place] [facility] [address], [address] [place] [address], [facility] [phone] documented in this encounter Visit Diagnoses Diagnosis Chronic kidney disease, unspecified CKD stage Elevated blood pressure reading in office with white coat syndrome, without diagnosis of hypertension documented in this encounter Care Teams Waiter Relationship Specialty Start Date End Date No Ref-Primary, Physician PCP - General 10/02/22 Esme Villatoro CNM [address] [address] 10/02/22 Emily Coon MD [address] [place], [place] [address] Internal Medicine 10/02/22 Emily Coon MD [address] [place], [place] [id number] Assigned Nephrology Provider 10/27/22 documented as of this encounter
--- OUTSIDE RECORDS SUMMARY | 2023-05-03 11:38 | XMS_ITS | Encounter Summary ---
Author Name Unknown Organization [facility] Address [address] [place] [address] Care Team Providers Care Catering Barista Name Role Phone KerimelonieEsme CNM Unavailable [phone] Emily Coon MD Unavailable No Ref-Primary, Physician Primary Care Provider Emily Coon MD Unavailable Reason for Referral * Diagnostic Imaging Ultrasound (Routine) - Pending Review Specialty Diagnoses / Procedures Referred By Gema diaz Referred To Contact Radiology. Diagnoses related condition, antepartum Procedures MFM US Comprehensive Single Kaitlynn Dolan MD [facility] [address] [place] [address] Fax: Referral ID Status Reason Start Date Expiration Date V isits Requested Visits Authorized [id number] Pending Review 10/29/2022 10/29/2023 1 1 Encounter Details Date Type Department Care Team (Latest Contact Info) Description 10/29/[address] [facility]aternal [facility] [place] [address] [place] [id number] Kaitlynn Dolan MD [facility] [address] [place] [address] related condition, antepartum (Primary Dx) Social History Tobacco Use Types [...] Recorded In the last 10 days, have oren dodge been in contact with someone who was confirmed or suspected to have Coronavirus/COVID-19? No / Unsure 10/25/2022 12:47 PM CDT documented as of this encounter Plan of Treatment Not on file documented as of this encounter Results * [facility] Comprehensive Single (11/16/2022 11:10 AM CDT) Anatomical [...] DARBY Study Date: 11/16/2022 10:17am Pat. NO: [id number] Referring ??: KAITLYNN DOLAN Site: [facility] Stock Shaper: Shon Adams RDMS : 1990 Age: 32 [...] lb 12 ? 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 5.8 ? mm CM ?2.9 ? [...] / Thorax ?4-chamber view. Ductal arch view. 9-rchibx-fkjoqcg view. ? Right lung. Left lung. MATERNAL [...] have scheduled the patient to return to [facility] in 4 weeks to complete the anatomic [...] Pat. Name:Mai DARBY Date:11/16/2022 10:17am Pat. 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 Ductal arch view.8-xadpwe-gtkmqxv view. Right lung. Left lung. MATERNAL STRUCTURES [...] have scheduled the patient to return to [facility] in 4 weeks to complete theanatomic survey. [...] markers for aneuploidy seen. Kaitlynn Dolan MD IMG MFM US ORDERABLE S documented in this encounter Visit Diagnoses Diagnosis related condition, antepartum- Primary related condition, antepartum documented in this encounter Care Teams Catering Barista Relationship Specialty Start Date End Date No Ref-Primary, Physician PCP - General 10/02/22 Esme Villatoro CNM [address] [address] 10/02/22 Emily Coon MD [address] [place], [place] [address] Internal Medicine 10/02/22 Emily Coon MD [address] [place], [place] [phone] Assigned Nephrology Provider 10/27/22 documented as of this encounter
--- OUTSIDE RECORDS SUMMARY | 2023-05-03 11:38 | XMS_ITS | Encounter Summary ---
Author Name Unknown Organization [place] Address [address] [place] [address] Care Team Providers Care Er Manager Name Role Phone Esme Villatoro CNM Unavailable [phone] Emily Coon MD Unavailable No Ref-Primary, Physician Primary Care Provider Encounter Details Date Type Department Care Team (Latest Contact Info) Description 10/02/2022 Travel Social History Tobacco Use Types Packs/Day Years Used Date Smoking Tobacco: Never Assessed Sex and Gender Information Value Date Recorded Sex Assigned at Not on file Gender Identity Not on file Sexual Orientation Not on file COVID-19 Exposure Response Date Recorded In the last 10 days, have yo u been in contact with someone who was confirmed or suspected to have Coronavirus/COVID-19? Unable to assess 10/02/2022 9:48 AM CDT documented as of this encounter Plan of Treatment Not on file documented as of this encounter Visit Diagnoses Not on filedocumented in this encounter Care Teams Er Manager Relationship Specialty Start Date End Date No Ref-Primary, Physician PCP - General 10/02/22 Esme Villatoro CNM [facility] [address] [place] [address] 10/02/22 Emily Coon MD [address] [place] [address] Internal Medicine 10/02/22 documented as of this encounter
--- OUTSIDE RECORDS SUMMARY | 2023-05-03 11:38 | XMS_ITS | Encounter Summary ---
Author Name Unknown Organization [place] Address [address] [place] [address]. [place] [address] Care Team Providers Care Director Of Education And Training Name Role Phone Esme Villatoro CNM Unavailable [phone] Emily Coon MD Unavailable No Ref-Primary, Physician Primary Care Provider Emily Coon MD Unavailable Encounter Details Date Type Department Care Team (Late st Contact Info) Description 10/26/2022 Medical Correspondence [facility] [address] [place] [address] Outside, Provider Social History Tobacco Use Types Packs/Day Years [...] on filedocumented in this encounter Care Teams Director Of Education And Training Relationship Specialty Start Date End Date No Ref-Primary, Physician PCP - General 10/02/22 Esme Villatoro CNM [facility] [address] [place] [address] 10/02/22 Emily Coon MD [address] [place], [place] [phone] MD Internal Medicine 10/02/22 Emily Coon MD [address] [place], [place] [phone] Assigned Nephrology Provider 10/27/22 documented as of this encounter
--- OUTSIDE RECORDS SUMMARY | 2023-05-03 11:38 | XMS_ITS | Encounter Summary ---
Author Name Unknown Organization [place] Address [address] [place] [address] Care Team Providers Care Pipeline Technician Name Role Phone Esme Villatoro CNM Unavailable [phone] Emily Coon MD Unavailable No Ref-Primary, Physician Primary Care Provider Reason for Visit * Reason Onset Date Comments *-*INCOMING RECORDS*-* 10/25/2022 Encounter Details Date Type Department Care Team (Late st Contact Info) Description 10/25/[address] [facility] [address] [address] Emily Coon MD [address] [place] [address] *-*INCOMING RECORDS*-* Social History Tobacco Use Types Packs/Day Years Used Date Smoking Tobacco: Never Smokeless Tobacco: Never Estimated Date of Delivery Comme nts Yes [...] on filedocumented in this encounter Care Teams Pipeline Technician Relationship Specialty Start Date End Date No Ref-Primary, Physician PCP - General 10/02/22 Esme Villatoro CNM [facility] [address] [place] [address] 10/02/22 Emily Coon MD [address] [place] [address] Internal Medicine 10/02/22 documented as of this encounter
--- OUTSIDE RECORDS SUMMARY | 2023-05-03 11:38 | XMS_ITS | Encounter Summary ---
Author Name Unknown Organization [place] Address [address] [place] [address] Care Team Providers Care Research Management Associate Name Role Phone Esme Villatoro ROBB Unavailable [phone] Emily Coon MD Unavailable No Ref-Primary, Physician Primary Care Provider Tam Eckert Rn RN Unavailable Unavaila ble Emily Coon MD Unavailable Reason for Visit * Reason Onset Date Comments Patient Request 10/29/2022 Encounter Details Date Type Department Care Team (Late st Contact Info) Description 10/29/2022 Telephone [facility] [address] [address] Emily Coon MD [address] [place] [address] Patient Request Social History Tobacco Use Types Packs/Day Years [...] PM CDT documented as of this encounter Miscellaneous Notes * Telephone Encounter - Lucila Huddleston - 10/29/2022 9:51 AM CDT [facility] Call Center Phone Message May a detailed message be left on voicemail: yes Reason for Call: Other: [facility] referred patient to see Neph. Patient had an appt on 10/25/22 and they would like to request the appt notes. Please fax the notes to [phone]. Attn to Dr. Narayanan.Please reach out to Tanisha should you have any questions. Action Taken: Other: Nephrology Travel Screening: Not Applicable documented in this encounter Plan of Treatment Not on file documented as of this encounter Visit Diagnoses Not on filedocumented in this encounter Care Teams Research Management Associate Relationship Specialty Start Date End Date No Ref-Primary, Physician PCP - General 10/02/22 Esme Villatoro CNM [facility] [address] [place] [address] 10/02/22 Emily Coon MD [address] [place], [place] [address] Internal Medicine 10/02/22 Tam Eckert, RN, RN Specialty Lead Portfolio Manager Nephrology 10/30/22 Emily Coon MD [address] [place], [place] [address] Assigned Nephrology Provider 10/27/22 documented as of this encounter
--- OUTSIDE RECORDS SUMMARY | 2023-05-03 11:38 | XMS_ITS | Encounter Summary ---
Author Name Unknown Organization [place] Address [facility] [place] [address] Care Team Providers Care Animal Treatment Investigator Name Role Phone Shauna Esme ROBB Unavailable [phone] Emily Coon MD Unavailable No Ref-Primary, Physician Primary Care Provider Emily Coon MD Unavailable Reason for Referral * Consultation (Routine: Next available opening) - Pending Review Specialty Diagnoses / Procedures Referred By Gema diaz Referred To Contact Diagnoses related condition, antepartum Kaitlynn Narayanan MD [facility] [address] [place] [address] Fax: Maternal Med [address] [place] [address] Referral ID Status Reason Start Date Expiration Date V isits Requested Visits Authorized [id number] Pending Review 10/29/2022 10/29/2023 1 1 Question Answer Preferred Location: [facility] [place] 04/05/2023 Ultrasound Comprehensive US (>than 18 weeks GA) US PROC NONE MFM Issue OTHER (enter details in Comments) - pre-existing hypertension, proteinuria [facility] Consultation (unrelated to Ultrasound findings): No Inflammatory Bowel Disease Clinic: Joint MFM and GI Consultation: No Chronic Kidney Disease: Joint MFM and Nephrology Consultation No fax Kaitlynn Narayanan [facility], Comments pre-existing hypertension, proteinuria Encounter Details Date Type Department Care Team (Latest Contact Info) Description 10/29/2022 Transcribe Orders [facility] [place] [address] [place] [address] Kaitlynn Narayanan MD [facility] [address] [place] [address] related condition (Primary Dx); related condition, antepartum Social History Tobacco Use Types Packs/Day Years [...] as of this encounter Plan of Treatment Scheduled Referrals Name Type Priority Associated Diagnoses Orde r Schedule Mat Med Ctr Referral - Referral Routine: Next available opening related condition, antepartum Expected: 10/29/2022 (Approximate), Expires: 10/30/2023 documented as of this encounter Visit Diagnoses Diagnosis related condition, antepartum documented in this encounter Care Teams Animal Treatment Investigator Relationship Specialty Start Date End Date No Ref-Primary, Physician PCP - General 10/02/22 Esme Villatoro CNM [facility] [address] [place] [address] 10/02/22 Emily Coon MD [address] [place] [address] Internal Medicine 10/02/22 Emily Coon MD [address] [place] [address] Assigned Nephrology Provider 10/27/22 documented as of this encounter
--- OUTSIDE RECORDS SUMMARY | 2023-05-03 11:38 | XMS_ITS | Clinical Summary ---
Author Name Unknown Organization [employer] [facility] Address [place], [place] [address] Care Team Providers Care Packing And Wrapping Supervisor Name Role Phone BoraemilyerwinFernanda Primary Care Provider Allergies No known active allergies Medications Medication Sig Dispensed Refills Start Date End Date Status vit 28/iron fum/folic (multivitamin folic acid 1 mg)Indications:Pregnan cy confirmed by positive urine test Take 1 Tablet by mouth once daily. 0 09/26/2020 Active Active Problems Problem Noted Date Diagnosed Date Vitamin D insufficiency 03/28/2020 Dyslipidemia 07/30/2016 Overview: Hypertriglyceridemia Family history of colon cancer 07/27/2016 Overview: Mother's oncologist recommend screening colonoscopy at age 30. Obesity (BMI 30-39.9) 05/10/2015 Other acne 10/02/2007 Myopia 09/20/2005 Resolved Problems Problem Noted Date Diagnosed Date Resolved Date ASCUS of cervix with negative high risk HPV 07/29/2016 03/13/2019 Overview: Needs cotesting in 2018. Immunizations Name Administration Dates Next Due DTP 10/16/1996, 3,1991,1991, HIB PRP-OMP (PedvaxHIB) 10/21/1992,1991,,1991 HPV 9 (Gardasil 9) 05/10/2015 Hepatitis B (Peds) 02/07/2004,07/26/2003 Human Papilloma Virus Vaccine 03/05/2014, 008 MMR 10/16/1996,10/21/1992 Oral Polio Vaccine 10/16/1996,1991, 992,1991 Tdap 03/05/2014 Family History Medical History Relation Name Comments Cancer Father kidney ca Hypertension Father Heart Disease Maternal Grandfather early 50s Cancer-colon Mother colon ca stage 4 Hypertension Mother Heart Disease Paternal Grandfather ?50s Relation Name Status Comments Father Maternal Grandfather Mother Paternal Grandfather Social History Tobacco Use Types Packs/Day Years Used Date Smoking Tobacco: Never Smokeless Tobacco: Never Tobacco Cessation:Counseling Given: Yes Comments:never Alcohol Use Standard Drinks/Week Comments Yes 0 (1 standard drink = 0.6 oz pur e alcohol) Alcoholic Drinks/day: social PHQ-2 Answer Date Recorded PHQ-2 TOTAL SCORE 0 03/28/2020 Social Connections Answer Date Recorded Frequency of Communication with Friends and Fami ly Not on file 03/15/2021 Financial Resource Strain Answer Date R ecorded Difficulty of Paying Living Expenses Not on file 03/15/2021 Difficulty of Paying Living Expenses Not on file 03/15/2021 Sex and Gender Information Value Date Recorded Sex Assigned at Not on file Gender Identity Not on file Sexual Orientation Not on file Obstetrics History Para Term AB IAB SAB Ectopic Multiple Livin g Live Births 0 0 0 0 0 0 0 0 0 0 Last Filed Vital Signs Vital Sign Reading Time Taken Comments Blood Pressure 138/82 10/28/2020 10:41 AM CDT Pulse 84 10/28/2020 10:41 AM CDT Temperature 36.8 ??C (98.3 ??F) 04/17/2011 9:37 AM CS T Respiratory Rate 14 05/08/2001 12:0 0 AM DITCH DIGGER Oxygen Saturation 100% 04/27/2020 8:26 AM DITCH DIGGER Inhaled Oxygen Concentration - - Weight 108.1 kg (238 lb 6.4 oz) 021 10:41 AM CDT Height 171.5 cm (5' 7.5) 10/28/2020 10 :41 AM CDT Body Mass Index 36.79 10/28/2020 10:41 AM CDT Plan of Treatment Health Maintenance Due Date Last Done Comments COVID-19 vaccine series (#1) 1991 HIV for age 15-65 2006 Hepatitis C screening for age 18-79 2009 Depression screening for age 12+ 03/28/2021 03/28/2020, 01/25/2020, 12/11/2017, Additional history exists BMI (ht and wt on same day) for age 18+ 10/28/2021 10/28/2020, 04/27/2020, 03/28/2020, Additional history exists Influenza for age 9-49 11/23/2022 Tetanus booster 03/05/2024 03/05/2014 Pap test for age 21-65 07/24/2024 , 07/24/2021, 11/21/2020, Additional history exists Tdap Completed 03/05/2014 Pneumococcal series for age 6-64 Aged Out No longer eligible based on patient's age to complete this topic Care Teams Packing And Wrapping Supervisor Relationship Specialty [place] [address] [place] [address] PCP - General Family Practice 04/08/19
--- OUTSIDE RECORDS SUMMARY | 2023-05-03 11:38 | XMS_ITS | Encounter Summary ---
Author Name Unknown Organization [place] Address [address] [place] [address] Care Team Providers Care Scheduling Representative Name Role Phone Unavailable Primary Care Provider Unavailabl e Reason for Referral * Consultation (Routine) - Pending Review Specialty Diagnoses / Procedures Referred By Contac t Referred To Contact Nephrology Diagnoses Chronic hypertension affecting Protein in urine Proteinuria, unspecified Esme Villatoro CNM [facility] [address] [place] [address] Referral ID Status Reason Start Date Expiration Date V isits Requested Visits Authorized Pending Review 10/01/2022 10/01/2023 1 1 Question Answer Reason for Referral: Hypertension Scheduling Instructions: [facility] will call you to coordinate your care as prescribed by the provider. If you don? t hear from a wine sales representative within 2 business days, please call [phone]. Comments Esme Villatoro CNM [facility] [address] [place] [address] T: [phone] F: [phone] [employer] will call you to coordinate your care as prescribed by the provider. If you don? t hear from a wine sales representative within 2 business days, please call [phone]. Encounter Details Date Type Department Care Team (Late st Contact Info) Description 10/01/2022 Transcribe Orders GENERIC EXTERNAL DATA DEPARTMENT Provider, Generic External Data Chronic hypertension affecting (Primary Dx); Protein in urine; Proteinuria, unspecified Social History Tobacco Use Types Packs/Day Years Used Date Smoking Tobacco: Never Assessed Sex and Gender Information Value Date Recorded Sex Assigned at Not on file Gender Identity Not on file Sexual Orientation Not on file documented as of this encounter Plan of Treatment Scheduled Referrals Name Type Priority Associated Diagnoses Orde r Schedule Adult Nephrology Mini Baccarat Dealer Referral Referral Routine Chronic hypertension affecting Protein in urine Proteinuria, unspecified Expected: 10/01/2022 (Approximate), Expires: 10/02/2023 documented as of this encounter Visit Diagnoses Diagnosis Chronic hypertension affecting - Primary Protein in urine Proteinuria Proteinuria, unspecified documented in this encounter
--- OUTSIDE RECORDS SUMMARY | 2023-05-03 11:38 | XMS_ITS | Encounter Summary ---
Author Name Unknown Organization [place] Address [address] [place] [address] Care Team Providers Care Greeting Card Writer Name Role Phone Esme Villatoro CNM Unavailable Emily Coon MD Unavailable No Ref-Primary, Physician Primary Care Provider Encounter Details Date Type Department Care Team (Late st Contact Info) Description 10/16/2022 12:15 PM CDT Lab [facility] [address] [place] [address] Chronic kidney disease, unspecified CKD stage Social History Tobacco Use Types Packs/Day Years [...] suspected to have Coronavirus/COVID-19? No / Unsure 10/18/2022 5:21 PM CDT documented as of this encounter Plan of Treatment Not on file documented as of this encounter Procedures Procedure Name Priority Date/Time Associated Diagnosis Comments URINE MACROSCOPIC WITH REFLEX TO MICRO Routine 10/16/2022 12:32 PM CDT Chronic kidney disease, unspecified CKD stage PROTEIN RANDOM URINE Routine 10/16/2022 12:32 PM CDT Chronic kidney disease, unspecified CKD stage CBC WITH PLATELETS AND DIFFERENTIAL Routine 10/16/2022 12:19 PM CDT Chronic kidney disease, unspecified CKD stage CBC WITH PLATELETS & DIFFERENTIAL Routine 10/16/2022 12:19 PM CDT Chronic kidney disease, unspecified CKD stage RENAL PANEL Routine 10/16/2022 12:19 PM CDT Chronic kidney disease, unspecified CKD stage documented in this encounter Results * Protein random urine (10/16/2022 12:32 PM CDT) Total Protein Urine mg/dL <6.0 mg/dL 10/17/2022 1:03 AM CDT [facility] Comment:The reference ranges have not been established in urine protein. The results should be integrated into the clinical context for interpretation. Total Protein Urine mg/mg Creat 10/17/2022 1:03 AM CDT [facility] Comment:Unable to calculate, urine creatinine or protein is outside the detectable limits. Creatinine Urine mg/dL 19.0 mg/dL 10/17/2022 1:03 AM CDT [facility] Comment:The reference ranges have not been established in urine creatinine. The results should be integrated into the clinical context for interpretation. Urine URINE SPECIMEN / Unknown Non-blood Collection / Unknown 10/16/2022 12:32 PM CDT 10/16/2022 12:32 PM CDT Emily Coon MD LAB - URINE ORDERABL ES [facility] [address] [facility], [address] [id number], [facility] [phone] * Urine Macroscopic with reflex to Microscopic (10/16/2022 12:32 PM CDT) Color Urine Yellow Colorless, Straw, Light Yellow, Yellow 10/16/2022 12:36 PM CDT [facility] Appearance Urine Clear Clear 10/17/19 12:36 PM CDT [facility] Glucose Urine Negative Negative mg/dL 10/16/2022 12:36 PM CDT [facility] Bilirubin Urine Negative Negative 3 12:36 PM CDT [facility] Ketones Urine Negative Negative mg/dL 10/16/2022 12:36 PM CDT [facility] Specific [place] Urine <=1.005 1.003 - 1.035 10/16/2022 12:36 PM CDT [facility] Blood Urine Negative Negative 10/16/2022 12:36 PM CDT [facility] pH Urine 6.5 5.0 - 7.0 10/16/2022 12:36 PM CDT [facility] Protein Albumin Urine Negative Negative mg/dL 10/16/2022 12:36 PM CDT [facility] Urobilinogen Urine 0.2 0.2, 1.0 E.U./dL 10/16/2022 12:36 PM CDT [facility] Nitrite Urine Negative Negative 10/16/2022 12:36 PM CDT [facility] Leukocyte Esterase Urine Negative Negative 10/16/2022 12:36 PM CDT [facility] Urine URINE SPECIMEN / Unknown Non-blood Collection / Unknown 10/16/2022 12:32 PM CDT 10/16/2022 12:32 PM CDT Narrative [facility] - 10/16/2022 12:36 PM CDT Microscopic not indicated Emily Coon MD LAB - URINE ORDERABL ES [facility] [address] [place] [address], [facility] [phone] * (ABNORMAL) CBC with platelets and differential (10/16/2022 12:19 PM CDT) WBC Count 7.5 4.0 - 11.0 10e3/uL 10/16/2022 12:26 PM CDT [facility] RBC Count 3.77(L) 3.80 - 5.20 10e6/uL 10/16/2022 12:26 PM CDT [facility] Hemoglobin 11.8 11.7 - 15.7 g/dL 10/16/2022 12:26 PM CDT [facility] Hematocrit 34.8(L) 35.0 - 47.0 % 10/16/2022 12:26 PM CDT [facility] MCV 92 78 - 100 fL 10/16/2022 12:26 PM CDT [facility] MCH 31.3 26.5 - 33.0 pg 10/16/2022 12:26 PM CDT [facility] MCHC 33.9 31.5 - 36.5 g/dL 10/16/2022 12:26 PM CDT [facility] RDW 11.4 10.0 - 15.0 % 10/16/2022 12:26 PM CDT [facility] Platelet Count 169 150 - 450 10e3/uL 10/16/2022 12:26 PM CDT [facility] % Neutrophils 67 % 10/16/2022 12:26 PM CDT [facility] % Lymphocytes 26 % 10/16/2022 12:26 PM CDT [facility] % Monocytes 7 % 10/16/2022 12:26 PM CDT [facility] % Eosinophils 0 % 10/16/2022 12:26 PM CDT [facility] % Basophils 0 % 10/16/2022 12:26 PM CDT [facility] % Immature Granulocytes 0 % 10/16/2022 12:26 PM CDT [facility] Absolute Neutrophils 5.1 1.6 - 8.3 10e3/uL 10/16/2022 12:26 PM CDT [facility] Absolute Lymphocytes 1.9 0.8 - 5.3 10e3/uL 10/16/2022 12:26 PM CDT [facility] Absolute Monocytes 0.5 0.0 - 1.3 10e3/uL 10/16/2022 12:26 PM CDT [facility] Absolute Eosinophils 0.0 0.0 - 0.7 10e3/uL 10/16/2022 12:26 PM CDT [facility] Absolute Basophils 0.0 0.0 - 0.2 10e3/uL 10/16/2022 12:26 PM CDT [facility] Absolute Immature Granulocytes 0.0 <=0.4 10e3/uL 10/16/2022 12:26 PM CDT [facility] Blood BLOOD SPECIMEN / Unknown Venipuncture / Unknown 10/16/2022 12:19 PM CDT 10/16/2022 12:19 PM CDT Emily Coon MD LAB - BLOOD ORDERABL ES [facility] [address] [place] [address], [facility] [phone] * Renal panel (10/16/2022 12:19 PM CDT) Sodium 137 136 - 145 mmol/L 10/16/2022 11:07 PM CDT [facility] Potassium 3.6 3.4 - 5.3 mmol/L 10/16/2022 11:07 PM CDT [facility] Chloride 104 98 - 107 mmol/L 10/16/2022 11:07 PM CDT [facility] Carbon Dioxide (CO2) 22 22 - 29 mmol/L 10/16/2022 11:07 PM CDT [facility] Anion Gap 11 7 - 15 mmol/L 10/16/2022 11:07 PM CDT [facility] Glucose 90 70 - 99 mg/dL 10/16/2022 11:07 PM CDT [facility] Urea Nitrogen 7.2 6.0 - 20.0 mg/dL 10/16/2022 11:07 PM CDT [facility] Creatinine 0.57 0.51 - 0.95 mg/dL 10/16/2022 11:07 PM CDT [facility] GFR Estimate >90 >60 mL/min/1.7 3m2 10/16/2022 11:07 PM CDT [facility] Calcium 9.1 8.6 - 10.0 mg/dL 10/16/2022 11:07 PM CDT [facility] Albumin 4.1 3.5 - 5.2 g/dL 10/16/2022 11:07 PM CDT [facility] Phosphorus 3.1 2.5 - 4.5 mg/dL 10/16/2022 11:07 PM CDT [facility] Blood BLOOD SPECIMEN / Unknown Venipuncture / Unknown 10/16/2022 12:19 PM CDT 10/16/2022 12:19 PM CDT Emily Coon MD LAB - BLOOD ORDERABL ES [facility] [address], [address] [place] [address], [facility] [phone] documented in this encounter Visit Diagnoses Diagnosis Chronic kidney disease, unspecified CKD stage documented in this encounter Care Teams Greeting Card Writer Relationship Specialty Start Date End Date No Ref-Primary, Physician PCP - General 10/02/22 Esme Villatoro CNM [address] [address] 10/02/22 Emily Coon MD [address] [place] [address] Internal Medicine 10/02/22 documented as of this encounter
--- OUTSIDE RECORDS SUMMARY | 2023-05-03 11:38 | XMS_ITS | Encounter Summary ---
Author Name Unknown Organization [place] Address [address] [place] [address] Care Team Providers Care Window Assembler Name Role Phone Esme Villatoro CNM Unavailable [phone] Emily Coon MD Unavailable No Ref-Primary, Physician Primary Care Provider Encounter Details Date Type Department Care Team (Latest Contact Info) Description 10/25/2022 Travel Social History Tobacco Use Types Packs/Day [...] on filedocumented in this encounter Care Teams Window Assembler Relationship Specialty Start Date End Date No Ref-Primary, Physician PCP - General 10/02/22 Esme Villatoro CNM [facility] [address] [place] [address] 10/02/22 Emily Coon MD [address] [place] [address] Internal Medicine 10/02/22 documented as of this encounter
--- OUTSIDE RECORDS SUMMARY | 2023-05-03 11:38 | XMS_ITS | Encounter Summary ---
Author Name Unknown Organization [place] Address [address] [place] [address] Care Team Providers Care Equity Sales Assistant Name Role Phone Esme Villatoro ROBB Unavailable [phone] Emily Coon MD Unavailable No Ref-Primary, Physician Primary Care Provider Reason for Visit * Reason Onset Date Comments Appointment 10/02/2022 Patient being re ferred for Urgent Appointment (1-2 weeks) by referring provider. Encounter Details Date Type Department Care Team ([facility] st Contact Info) Description 10/02/2022 [facility] [address] [address] Emily Coon MD [address] [place] [address] Appointment (Patient being referred for Urgent Appointment (1-2 weeks) by referring provider. ) Social History Tobacco Use Types Packs/Day Years [...] AM CDT documented as of this encounter Miscellaneous Notes * Telephone Encounter - Lucila Milner - 10/02/2022 9:52 AM CDT [facility] Call Center Phone Message May a detailed message be left on voicemail: yes Reason for Call: Patient being referred for Urgent Appointment (1-2 weeks) by referring provider. Tire Service Supervisor scheduled first available on 10/25 and added Pt to the wait list. Sending encounter for review and follow-up with patient if sooner appointment is needed. Thank you! Action Taken: Message routed to: [facility] [place]ph Travel Screening: Not Applicable documented in this encounter Plan of Treatment Not on file documented as of this encounter Results * Protein random urine [...] LAB - URINE ORDERABL ES [facility] [address], [address] [place] [address], [facility] [phone] * Urine Macroscopic with reflex to Microscopic (10/16/2022 12:32 PM CDT) Color Urine Yellow Colorless, Straw, Light Yellow, Yellow 10/16/2022 12:36 PM CDT [facility] Appearance Urine Clear Clear 10/17/19 12:36 PM CDT [facility] Glucose Urine Negative Negative mg/dL 10/16/2022 12:36 PM CDT [facility] Bilirubin Urine Negative Negative 12:36 PM CDT [facility] Ketones Urine Negative Negative mg/dL 10/16/2022 12:36 PM CDT [facility] Specific [place] Urine <=1.005 1.003 - 1.035 10/16/2022 12:36 [...] LAB - URINE ORDERABL ES [facility] [address] [address], [facility] [phone] * Renal panel (10/16/2022 12:19 PM CDT) [...] LAB - BLOOD ORDERABL ES [facility] [address] [facility], [address] [place] [address] [phone] documented in this encounter Visit Diagnoses Diagnosis Chronic kidney disease, unspecified CKD stage- Primary documented in this encounter Care Teams Equity Sales Assistant Relationship Specialty Start Date End Date No Ref-Primary, Physician PCP - General 10/02/[address] [facility] [address] [place] [address] 10/02/22 Emily Coon MD [address] [place] [address] Internal Medicine 10/02/22 documented as of this encounter
--- OUTSIDE RECORDS SUMMARY | 2023-05-03 11:38 | XMS_ITS | Encounter Summary ---
Author Name Unknown Organization [place] Address [address] [place] [address] Care Team Providers Care Palaeontologist Name Role Phone KerimelonieEsme CNM Unavailable [phone] Emily Coon MD Unavailable No Ref-Primary, Physician Primary Care Provider Tam Eckert Rn RN Unavailable Unavaila ble Emily Coon MD Unavailable Encounter Details Date Type Department Care Team (Late st Contact Info) Description 10/11/2022 Telephone [facility] [address] [address] Tanmay Ulloa Social History Tobacco [...] encounter Miscellaneous Notes * Telephone Encounter - Tanmay Ulloa - 10/11/2022 8:38 AM CDT Called patient and left a message with a appointment reminder for Th. 10/25/22 @ 1:[address] Coon and a lab draw @ 12:00 pm. Tanmay Ulloa on 10/11/2022 at 8:39 AM documented in this encounter Plan of Treatment Not on file documented as of this encounter Visit Diagnoses Not on filedocumented in this encounter Care Teams Palaeontologist Relationship Specialty Start Date End Date No Ref-Primary, Physician PCP - General 10/02/22 Esme Villatoro CNM [address] [address] 10/02/22 Emily Coon MD [address] [place] [address] Internal Medicine 10/02/22 Tam Eckert, RN, RN Specialty Finance Business Partner Nephrology 10/30/22 Emily Coon MD [address] [place], [place] [address] Assigned Nephrology Provider 10/27/22 documented as of this encounter
--- OUTSIDE RECORDS SUMMARY | 2023-05-03 11:38 | XMS_ITS | Encounter Summary ---
Author Name Unknown Organization [place] Address [address] [place] [address] Care Team Providers Care Aluminum Fabrication Supervisor Name Role Phone Esme Villatoro CNM Unavailable [phone] Emily Coon MD Unavailable No Ref-Primary, Physician Primary Care Provider Encounter Details Date Type Department Care Team (Latest Contact Info) Description 10/18/2022 Travel Social History Tobacco Use Types Packs/Day [...] on filedocumented in this encounter Care Teams Aluminum Fabrication Supervisor Relationship Specialty Start Date End Date No Ref-Primary, Physician PCP - General 10/02/22 Esme Villatoro CNM [facility] [address] [place] [address] 10/02/22 Emily Coon MD [address] [place] [address] Internal Medicine 10/02/22 documented as of this encounter
--- OUTSIDE RECORDS SUMMARY | 2023-05-03 11:38 | XMS_ITS | Encounter Summary ---
Author Name Unknown Organization [place] Address [address] [place] [address] Care Team Providers Care Electric Range Preparer Name Role Phone Yamile Villatoroloreta ZAMUDIO Unavailable [phone] Emily Coon MD Unavailable No Ref-Primary, Physician Primary Care Provider Encounter Details Date Type Department Care Team (Late st Contact Info) Description 10/25/2022 2:15 PM CDT Lab [address] [place] [address] Emily Coon MD [address] [place] [address] Protein in urine Social History Tobacco Use Types Packs/Day Years [...] Procedure Name Priority Date/Time Associated Diagnosis Comments PROTEIN TIMED URINE Routine 10/30/2022 7 :15 AM CDT Protein in urine documented in this encounter Results * Protein timed urine (10/30/2022 7:15 AM CDT) Total Protein Urine mg/dL <6.0 mg/dL 10/30/2022 12:41 PM CDT [facility] Comment:The reference ranges have not been established in urine protein. The results should be integrated into the clinical context for interpretation. Duration in hours 24.0 h ANKIT 10/30/2022 12:41 PM CDT [facility] Volume in mL 3,652 mL ANKIT 10/30/2022 12:41 PM CDT [facility] Total Protein Timed Urine 10/30/2022 12:41 PM CDT [facility] Comment:Unable to calculate, urine protein is outside the detectable limits. Urine URINE SPECIMEN / Unknown Non-blood Collection / Unknown 10/30/2022 7:15 AM CDT 10/30/2022 11:49 AM CDT Emily Coon MD LAB - URINE ORDERABL ES [facility] [address] [place] [address] documented in this encounter Visit Diagnoses Diagnosis Protein in urine Proteinuria documented in this encounter Care Teams Electric Range Preparer Relationship Specialty Start Date End Date No Ref-Primary, Physician PCP - General 10/02/22 Esme Villatoro CNM [address] [address] 10/02/22 Emily Coon MD [address] [place] [address] Internal Medicine 10/02/22 documented as of this encounter
--- OUTSIDE RECORDS SUMMARY | 2023-05-03 11:38 | XMS_ITS | Encounter Summary ---
Author Name Unknown Organization [facility] Address [address] [place] [address] Care Team Providers Care Buyer Internship Name Role Phone Esme Villatoro CNM Unavailable [phone] Emily Coon MD Unavailable No Ref-Primary, Physician Primary Care Provider Reason for Referral * CV Testing (Routine) - Pending Review Specialty Diagnoses / Procedures Referred By Gema diaz Referred To Contact Diagnoses Elevated blood pressure reading in office with white coat syndrome, without diagnosis of hypertension Procedures 24 Hour Blood Pressure Monitor - Adult Emily Coon MD [address] [place] [address] Referral ID Status Reason Start Date Expiration Date V isits Requested Visits Authorized [id number] Pending Review 10/25/2022 10/25/2023 1 1 Reason for Visit * Reason Comments Consult New pt consult. * Consultation (Routine) - Pending Review Specialty Diagnoses / Procedures Referred By Gema diaz Referred To Contact Nephrology Diagnoses Chronic hypertension affecting Protein in urine Proteinuria, unspecified Esme Villatoro CNM [facility] [address] [place] [address] Referral ID Status Reason Start Date Expiration Date V isits Requested Visits Authorized Pending Review 10/01/2022 10/01/2023 1 1 Encounter Details Date Type Department Care Team (Late st Contact Info) Description 10/25/2022 1:00 PM CDT Office Visit [facility] Nephrology [address] [phone] Emily Coon MD [address] [place], [place] [phone] Chronic hypertension affecting (Primary Dx); Elevated blood pressure reading in office with [...] PM CDT documented as of this encounter Last Filed Vital Signs Vital Sign Reading Time Taken Comments Blood Pressure 143/80 10/25/2022 1:01 PM CDT Pulse 97 10/25/2022 1:01 PM CDT Temperature 36.8 ??C (98.3 ??F) 10/25/2022 1:01 PM CD T Respiratory Rate - - Oxygen Saturation 100% 10/25/2022 1:01 PM CDT Inhaled Oxygen Concentration - - Weight 114.2 kg (251 lb 12.8 oz) 10/25/2022 1:01 PM CDT Height - - Body Mass Index - - documented in this encounter Patient Instructions * Patient Instructions* Emily Coon MD - 10/25/2022 1:00 PM CDT It was a pleasure taking care of you today. I've included a brief summary of our discussion and care plan from today's visit below. Please review this information with your primary care provider. My recommendations are summarized as follows: -will repeat 24 hrs urine to look for protein -will order a 24 hours BP monitoring -watch your salt intake -Healthy diet(vegetables and fruits) Who do I call with any questions after my visit? Please be in touch if there are any further questions that arise following today's visit. There aremultiple ways to contact your nephrology care team. During business hours, you may reach your Nephrology Care Team or schedule or reschedule an appointment or lab at [phone]. If you need to schedule imaging, please call . To schedule a COVID test, please call [phone]. You can always send a secure message through [employer]. [employer] messages are answered by your nurse or doctor typically within 24-48 hours. Please allow extra time on weekends and holidays. For urgent/emergent questions after business hours, you may reach the on-call Nephrology Fellow by contacting the [facility] eyelet punch operator at . How will I get the results of any tests ordered? You will receive all of your results. If you have signed up for [facility], any tests ordered at your visit will be available to you once resulted on MyChart. Typically the physician reviews them and may or may not make further recommendations. If there are urgent results that require a change in yourcare plan, your physician or nurse will call you to discuss the next steps. If you are not on MyChart, a letter may be generated and mailed to you with your results. documented in this encounter Progress Notes * Emily Coon MD - 10/25/2022 1:00 PM CDT I was asked to see this patient by Dr. Esme Villatoro. CC: Proteinuria in HPI: Thank you for the referral. I had the pleasure today of seeing Denise Darby. She is a 32 year oldfemale who presents for evaluation of Proteinuria. She is here with her today. She is currently 16 weeks . She is being referred for proteinuria. Her 24-hour urine collection earlier in showed 404 milligrams per 24 hours. She also notes that her clinic blood pressure is elevated while here home blood pressure is rather within normal limits around 120/80. Sheattributes her high blood pressure in clinic to [...] delivered a healthy baby boy. She is 16 weeks through her second today. Her due date is April 05, 2023. So far she isdoing well. She denies lower extremity edema or shortness of breath, just regular fatigue with . Her blood pressures at home as 120/80. While her pressure in clinic today is 143/80. Family history: No preeclampsia in her family. Her mother of colon cancer. Her dad had hypertension and renal cancer. Social history: She is . She has 1 son Denny. She works at [employer] in [place]. She is anon-smoker and nonalcoholic. She has 2 sisters and 1 brother. All in [place]. No Known Allergies aspirin 81 MG EC tablet, Take 81 mg by mouth daily Docosahexaenoic Acid (DHA) 200 MG capsule, Take 200 mg by mouth daily No current facility-administered medications on file prior to visit. History reviewed. No pertinent past medical history. History reviewed. No pertinent surgical history. Social History Tobacco Use Smoking status: Never [...] edema, change in bowel movements. Exam: BP (!) 143/80 Pulse 97 Temp 98.3 ??F (36.8 ??C) Wt 114.2 kg (251 lb 12.8 oz) SpO2 100% GENERAL APPEARANCE: alert and no distress EYES: [...] the patient and her Assessment/Plan: Problem #1 possible proteinuria during : She had a 24-hour urine collection done earlier during her which showed for a 404 mg per 24 hours. Her UA today as well as her urine protein creatinine ratio does not suggest any proteinuria. There is also no evidence of hematuria -We will repeat a 24-hour urine collection to determine whether she really has proteinuria or not. -In case she proves to have proteinuria and her blood pressure is elevated, then she will need treatment with antihypertensive therapy that is safe during like labetalol or nifedipine. Problem #2 whitecoat hypertension: Reportedly, her blood pressure at home is running within normal limits. She carried the diagnosis of gestational hypertension before though she also mentions that her home blood pressure was always lower than her office blood pressure. - We will do a 24-hour ambulatory blood pressure monitoring Problem #3 obesity: Advised not to gain excessive weight during and to cut down on salt. The total time of this encounter amounted to 60 minutes on the day of the encounter 10/25/2022. This time included face to face time spent with the patient, preparatory work and chart review, ordering tests, and performing post visit documentation. *This dictation was prepared in part using [employer] recognition software. As a result errors may occur. When identified these inclusion special educator errors have been corrected. While every attempt is made to correct errors during dictation, errors may still exist. Emily Coon MD [facility] Department of Medicine Division of Renal Disease and Hypertension documented in this encounter Nursing Notes * Marie Ingram - 10/25/2022 1:00 PM CDT Chief Complaint Patient presents with Consult New pt consult. Blood pressure (!) 143/80, pulse 97, temperature 98.3 ??F (36.8 ??C), weight 114.2 kg (251 lb 12.8 oz), SpO2 100 %. MARIE INGRAM documented in this encounter Plan of Treatment Scheduled Orders Name Type Priority Associated Diagnoses Orde r Schedule 24 Hour Blood Pressure Monitor - Adult Cardiac Services Routine Elevated blood pressure reading in office with white coat syndrome, without diagnosis of hypertension Expected: 11/01/2022 (Approximate), Expires: 10/26/2023 documented as of this encounter Results * Protein timed urine (10/30/2022 7:15 AM CDT) Total Protein Urine mg/dL <6.0 mg/dL 10/30/2022 12:41 PM CDT [facility] Comment:The reference ranges have not been established in urine protein. The results should be integrated into the clinical context for interpretation. Duration in hours 24.0 h ANKIT 10/30/2022 12:41 PM CDT [facility] Volume in mL 3,652 mL ANKIT 10/30/2022 12:41 PM CDT [facility] Total Protein Timed Urine 10/30/2022 12:41 PM CDT [facility] Comment:Unable to calculate, urine protein is outside the detectable limits. Urine URINE SPECIMEN / Unknown Non-blood Collection / Unknown 10/30/2022 7:15 AM CDT 10/30/2022 11:49 AM CDT Emily Coon MD LAB - URINE ORDERABL ES [facility] Surgery [address] 1[address] [place] [address] documented in this encounter Visit Diagnoses Diagnosis Chronic hypertension affecting - Primary Elevated blood pressure reading in office with white coat syndrome, without diagnosis of hypertension documented in this encounter Care Teams Buyer Internship Relationship Specialty Start Date End Date No Ref-Primary, Physician PCP - General 10/02/22 Esme Villatoro CNM [facility] [address] [place] [address] 10/02/22 Emily Coon MD [address] [place] [address] Internal Medicine 10/02/22 documented as of this encounter
--- OUTSIDE RECORDS SUMMARY | 2023-05-03 11:38 | XMS_ITS | Encounter Summary ---
Author Name Unknown Organization [facility] Address [address] [place] [address]. [place] [address] Care Team Providers Care Ball Racker Name Role Phone Esme Villatoro CNM Unavailable [phone] Emily Coon MD Unavailable No Ref-Primary, Physician Primary Care Provider Encounter Details Date Type Department Care Team ([facility] st Contact Info) Description 09/28/2022 Medical Correspondence [facility] [address] [place] [phone] Outside, Provider Social History Tobacco Use [...] on filedocumented in this encounter Care Teams Ball Racker Relationship Specialty Start Date End Date No Ref-Primary, Physician PCP - General 10/02/22 Esme Villatoro CNM [facility] [address] [place] [address] 10/02/22 Emily Coon MD [address] [place] [address] Internal Medicine 10/02/22 documented as of this encounter
--- OUTSIDE RECORDS SUMMARY | 2023-05-03 11:38 | XMS_ITS | Encounter Summary ---
Author Name Unknown Organization [facility] Address [address] [place] [address] Care Team Providers Care Tape Making Machine Operator Name Role Phone Esme Villatoro CNM Unavailable [phone] Emily Coon MD Unavailable No Ref-Primary, Physician Primary Care Provider Encounter Details Date Type Department Care Team (Latest Contact Info) Description 10/16/2022 Travel Social History Tobacco Use Types Packs/Day [...] suspected to have Coronavirus/COVID-19? No / Unsure 10/16/2022 12:08 PM CDT documented as of this encounter Plan of Treatment Not on file documented as of this encounter Visit Diagnoses Not on filedocumented in this encounter Care Teams Tape Making Machine Operator Relationship Specialty Start Date End Date No Ref-Primary, Physician PCP - General 10/02/22 Esme Villatoro CNM [facility] [address] [place] [address] 10/02/22 Emily Coon MD [address] [place] [address] Internal Medicine 10/02/22 documented as of this encounter
--- OUTSIDE RECORDS SUMMARY | 2023-05-03 11:38 | XMS_ITS | Encounter Summary ---
Author Name Unknown Organization [facility] Address [address] [place] [address] Care Team Providers Care Clinic Lpn Name Role Phone Esme Villatoro CNM Unavailable [phone] Emily Coon MD Unavailable No Ref-Primary, Physician Primary Care Provider Tam Eckert Rn RN Unavailable Unavaila ble Emily Coon MD Unavailable Encounter Details Date Type Department Care Team (Latest Contact Info) Description 10/30/2022 Travel Social History Tobacco Use Types Packs/Day [...] on filedocumented in this encounter Care Teams Clinic Lpn Relationship Specialty Start Date End Date No Ref-Primary, Physician PCP - General 10/02/22 Esme Villatoro CNM [address] [address] 10/02/22 Emily Coon MD [address] [place] [address] Internal Medicine 10/02/22 Tam Eckert, RN, RN Specialty Employee Relation Manager Nephrology 10/30/22 Emily Coon MD [address] [place] [address] Assigned Nephrology Provider 10/27/22 documented as of this encounter
== END 2023-05-03 11:34 | disposition home or self-care (01) ==
LOC: NFLDREF 11:34
PROVIDERS: PCP Registered Nurse; Visit Provider Registered Nurse
DX: R32 Unspecified urinary incontinence (principal)
CPT/HCPCS: 87086

== ENCOUNTER 2024-06-02 22:05 | Emergency (ER) | payer BC, SELFPAY ==
--- OUTSIDE RECORDS SUMMARY | 2024-06-02 22:08 | XMS_ITS | Encounter Summary ---
Author Organization [facility] Address [address] [place] [address]. [place] [address] Care Team Providers Care Predictive Maintenance Technician Name Role Phone Esme Villatoro CNM Unavailable [phone] Emily Coon MD Unavailable No Ref-Primary, Physician Primary Care Provider Emily Coon MD Unavailable Encounter Details Date Type Department Care Team (Late st Contact Info) Description 01/18/2023 [facility] [address] [phone] Tanmay Ulloa Social History Tobacco Use Types Packs/Day Years Used Date Smoking Tobacco: Never Smokeless Tobacco: Never PHQ-2 Answer Date Recorded PHQ-2 Score 0 10/25/2022 Adolescent Education Answer Date Record ed Getting School Help Needed Not on file 12/15 Comments Yes Sex and Gender Information Value Date Recorded Sex Assigned at Not on file Legal Sex Female 9:59 AM CDT Gender Identity Not on file Sexual Orientation Not on file documented as of this encounter Plan of Treatment Not on file documented as of this encounter Visit Diagnoses Not on filedocumented in this encounter Care Teams Predictive Maintenance Technician Relationship Specialty Start Date End Date No Ref-Primary, Physician PCP - General 10/02/22 Esme Villatoro CNM [facility] [address] [place] [address] 10/02/22 Emily Coon MD [address] [place] [address] [place] [address] Internal Medicine 10/02/22 Emily Coon MD Assigned Nephrology Provider 10/27/22 documented as of this encounter
--- OUTSIDE RECORDS SUMMARY | 2024-06-02 22:08 | XMS_ITS | Encounter Summary ---
Author Organization [facility] Address [address] [place] [address] Care Team Providers Care Assembly Machine Operator Name Role Phone Esme Villatoro ROBB Unavailable [phone] Emily Coon MD Unavailable No Ref-Primary, Physician Primary Care Provider Tam Eckert Rn RN Unavailable Unavaila ble Emily Coon MD Unavailable Reason for Visit * Reason Onset Date Comments Patient Request 10/29/2022 Encounter Details Date Type Department Care Team (Late st Contact Info) Description 10/29/2022 [facility] Nephrology Clinic [address] [address] Emily Coon MD Patient Request Social History Tobacco Use Types Packs/Day Years Used Date Smoking Tobacco: Never Smokeless Tobacco: Never PHQ-2 Answer Date Recorded PHQ-2 Score 0 10/25/2022 Comments Yes Sex and Gender Information Value [...] Lucila Huddleston - 10/29/2022 9:51 AM CDT [facility] Phone Message May a detailed message be left on voicemail: yes Reason for Call: Other: [facility] referred patient to see Neph. Patient had an appt on 10/25/22 and they would like to request the appt notes. Please fax the notes to [phone]. Attn to Dr. Narayanan.Please reach out to Tanisha should you have any questions. Action Taken: Other: Nephrology Travel Screening: Not Applicable documented in this encounter Plan of Treatment Not on file documented as of this encounter Visit Diagnoses Not on filedocumented in this encounter Care Teams Assembly Machine Operator Relationship Specialty Start Date End Date No Ref-Primary, Physician PCP - General 10/02/22 Esme Villatoro CNM [address] [address] 10/02/22 Emily Coon MD [address] [place] [address] Internal Medicine 10/02/22 Tam Eckert, RN, RN Specialty Building Stonecutter Nephrology 10/30/22 Emily Coon MD Assigned Nephrology Provider 10/27/22 documented as of this encounter
--- OUTSIDE RECORDS SUMMARY | 2024-06-02 22:08 | XMS_ITS | Encounter Summary ---
Author Organization [facility] Address [address] [place] [address] Care Team Providers Care Caster Investment Casting Name Role Phone Esme Villatoro CNM Unavailable [phone] Emily Coon MD Unavailable No Ref-Primary, Physician Primary Care Provider Tam Eckert Rn RN Unavailable Unavaila ble Emily Coon MD Unavailable Encounter Details Date Type Department Care Team (Late st Contact Info) Description 11/06/2022 [facility]phrology Clinic [address] [phone] Tam Eckert, RN, RN Social [...] on filedocumented in this encounter Care Teams Caster Investment Casting Relationship Specialty Start Date End Date No Ref-Primary, Physician PCP - General 10/02/22 Esme Villatoro CNM [facility] [address] [address] 10/02/22 Emily Coon MD [address] [place] [address] Internal Medicine 10/02/22 Tam Eckert, RN, RN Specialty Operations And Maintenance Technician Nephrology 10/30/22 Emily Coon MD Assigned Nephrology Provider 10/27/22 documented as of this encounter
--- OUTSIDE RECORDS SUMMARY | 2024-06-02 22:08 | XMS_ITS | Clinical Summary ---
Author Organization [facility] [place] Address [address] [place] [address] Care Team Providers Care Book Canvasser Name Role Phone Esme Villatoro ROBB Unavailable [phone] Emily Coon MD Unavailable No Ref-Primary, Physician Primary Care Provider Emily Coon MD Unavailable Allergies No known active allergies Medications Docosahexaenoic Acid (DHA) 200 MG capsule Take 200 mg by mouth daily Active aspirin 81 MG EC tablet Take 81 mg by mouth daily Active ferrous sulfate (FEROSUL) 325 (65 Fe) MG tablet Take 325 mg by mouth daily (with breakfast) Active Active Problems No known active problems Family History Medical History Relation Comments Kidney Cancer Father Colon Cancer Mother Relation Status Comments Father Mother Social History Tobacco Use Types Packs/Day Years Used Date Smoking Tobacco: Never Smokeless Tobacco: Never PHQ-2 Answer Date Recorded PHQ-2 Score 0 10/25/2022 Adolescent Education Answer Date Record ed Getting School Help Needed Not on file 12/15 Comments No Sex and Gender Information Value Date Recorded Sex Assigned at Not on file Legal Sex Female 9:59 AM CDT Gender Identity Not on file Sexual Orientation Not on file Last Filed Vital Signs Vital Sign Reading Time Taken Comments Blood Pressure 138/88 01/31/2023 3:07 PM CENTRAL SUPPLY AIDE Pulse 88 01/31/2023 3:07 PM CENTRAL SUPPLY AIDE Temperature 36.8 C (98.3 F) 10/25/2022 1:01 PM CDT Respiratory Rate - - Oxygen Saturation 97% 01/31/2023 3:07 PM CENTRAL SUPPLY AIDE Inhaled Oxygen Concentration - - Weight 120.2 kg (265 lb) 01/31/2023 3:07 PM CENTRAL SUPPLY AIDE Height 175.3 cm (5' 9) 01/31/2023 3:07 PM CENTRAL SUPPLY AIDE p t reported Body Mass Index 39.13 01/31/2023 3:07 PM CENTRAL SUPPLY AIDE Plan of Treatment Health Maintenance Due Date Last Done Comments ADVANCE CARE PLANNING 1991 ANNUAL REVIEW OF HM ORDERS 1991 HEPATITIS B IMMUNIZATION (3 of 3 - 3-dose series) 04/03/2004 02/07/2004, 07/26/2003 YEARLY PREVENTIVE VISIT 03/28/2021 03/28/2020 COVID-19 Vaccine ( season) 2023 INFLUENZA VACCINE (#1) 2023 PHQ-2 (once per calendar year) 2024 10/25/2022 PAP 07/24/2024 07/24/2021, 07/24/2021 DTAP/TDAP/TD IMMUNIZATION (9 - Td or Tdap) 04/20/2031 04/20/2021, 03/05/2014, 03/05/2014, Additional history exists ZOSTER IMMUNIZATION (1 of 2) 2041 HPV IMMUNIZATION Completed 05/10/2015, 02/2014, 03/05/2014, Additional history exists HEPATITIS C SCREENING Completed 08/31/2022 HIV SCREENING Completed 08/31/2022 MENINGITIS IMMUNIZATION Aged Out No l onger eligible based on patient's age to complete this topic Pneumococcal Vaccine: Pediatrics (0 to 5 Years) and At-Risk Patients (6 to 49 Years) Aged Out No longer eligible based on patient's age to complete this topic Procedures Procedure Name Priority Date/Time Associated Diagnosis Comments ABSTRACT HIV Routine 08/31/2022 10:14 AM CDT HEPATITIS C (HIM EXTERNAL RESULT) Routine 08/31/2022 10:14 AM CDT from Last 3 Months or Most Recently Relevant to Health Maintenance Results * ABSTRACT HIV (08/31/2022 10:14 AM CDT) HIV 1&2 EXT Non-Reacti ve [facility] Blood 08/31/2022 10:1 4 AM CDT [facility] - 08/31/2022 10:14 AM CDT [facility] LAB RESULT us Provider Outside LAB - HIM EXTERNAL RESULT Final Result Performing Organization Address City/[facility]/ZIP Co de Phone Number [facility] [address] [place], [place] [address] [phone] * Hepatitis C (HIM External Result) (08/31/2022 10:14 AM CDT) Hep C HIM See Scanned Document [facility] 08/31/2022 10:1 4 AM CDT [facility] - 08/31/2022 10:14 AM CDT [facility] LAB RESULT us Provider Outside LAB - HIM EXTERNAL RESULT Final Result Performing Organization Address [facility] Co de Phone Number [facility] [address] [place], [place] [address] [phone] from Last 3 Months or Most Recently Relevant to Health Maintenance Insurance [facility] [place] Care Teams Book Canvasser Relationship Specialty Start Date End Date No Ref-Primary, Physician PCP - General 10/02/22 Esme Villatoro CNM [address] [address] 10/02/22 Emily Coon MD [address] [place] [address] Internal Medicine 10/02/22 Emily Coon MD Assigned Nephrology Provider 10/27/22
--- OUTSIDE RECORDS SUMMARY | 2024-06-02 22:08 | XMS_ITS | Encounter Summary ---
Author Organization [facility] Address [address] [place] [address]. [place] [address] Care Team Providers Care Lie Detector Operator Name Role Phone Esme Villatoro CNM Unavailable [phone] Emily Coon MD Unavailable No Ref-Primary, Physician Primary Care Provider Emily Coon MD Unavailable Encounter Details Date Type Department Care Team (Late st Contact Info) Description 01/29/2023 [facility] Medical Advice [facility] Nephrology Clinic [address] [address] Emily Coon MD Social History Tobacco Use Types Packs/Day Years [...] on filedocumented in this encounter Care Teams Lie Detector Operator Relationship Specialty Start Date End Date No Ref-Primary, Physician PCP - General 10/02/22 Esme Villatoro CNM [address] [address] 10/02/22 Emily Coon MD [address] [place] [address] MD Internal Medicine 10/02/22 Emily Coon MD Assigned Nephrology Provider 10/27/22 documented as of this encounter
--- OUTSIDE RECORDS SUMMARY | 2024-06-02 22:08 | XMS_ITS | Clinical Summary ---
Author Organization [employer] Address [facility] [place] [address] Care Team Providers Care Credit Control Assistant Name Role Phone DiazCjtrina Bryane Primary Care Provider [phone] Allergies No known active allergies Medications vit 28/iron fum/folic (multivitamin folic acid 1 mg)Indications:P regnancy confirmed by positive urine test Take 1 Tablet by mouth once daily. 0 09/26/2020 Active pantoprazole (PROTONIX) 40 mg delayed-release tabletIndication s:Abdominal pain, epigastric Take 1 Tablet (40 mg) by mouth once daily before a meal. 30 Tablet 06/01/2024 Active sucralfate (CARAFATE) 1 gram tabletIndication s:Abdominal pain, epigastric Take 1 Tablet (1 g) by mouth four times daily before meals and at bedtime. 120 Tablet 06/01/2024 Active norethin deejay-eth estrad-fe, 1-20 mg-mcg, (LOESTRIN FE 04/13; JUNEL FE 04/13) tabletIndication s: control counseling Take 1 Tablet by mouth once daily. 84 Tablet 4 06/01/2024 Active Active Problems Problem Noted Date Diagnosed Date Abdominal pain, epigastric 06/02/2024 Vitamin D insufficiency 03/28/2020 Dyslipidemia 07/30/2016 Overview (03/28/2020): Hypertriglyceridemia Family history of colon cancer 07/27/2016 Overview (07/29/2016): Mother's oncologist recommend screening colonoscopy at age 30. Obesity (BMI 30-39.9) 05/10/2015 Other acne 10/02/2007 Myopia 09/20/2005 Resolved Problems Problem Noted Date Diagnosed Date Resolved Date ASCUS of cervix with negative high risk HPV 07/29/2016 03/13/2019 Overview (07/29/2016): Needs cotesting in 2018. Encounters Date Type Department Care Team Description 06/02/2024 10:00 AM CDT Orders Only [facility] [address] [place] [address] Lab, [facility] 06/02/2024 Telephone [facility] [id number] [place] [address] Fernanda Perales DO requesting call back 06/01/2024 3:25 PM CDT Office Visit [facility] [id number] [place] [address] Fernanda Perales DO Physical; Abdominal Pain (rt upper abd ) 06/01/2024 Travel 04/29/2024 Nurse Triage [facility] Centralized Nurse Triage Fernanda Perales DO Abdominal Pain from Last 3 Months Immunizations Immunization Administration Dates Next Due DTP 10/16/1996, 3,1991,1991,1991 HIB PRP-OMP (PedvaxHIB) 10/21/1992,10/27,1991,1991 HPV 9 (Gardasil 9) 05/10/2015,03/05/2014, 008 Hepatitis B (Peds) 02/07/2004,07/26/2003 Human Papilloma Virus Vaccine 03/05/2014, 008 MMR 10/16/1996,10/21/1992 Oral Polio Vaccine 10/16/1996, 2,1991,1991 Td, Preservative Free (age > = 7 Years) 03/05/2014 Tdap 02/12/2023,04/20/2021,03/05/2014 Family History Medical History Relation Name Comments [...] Answer Date Recorded PHQ-2 TOTAL SCORE 0 06/01/2024 Social Connections Answer Date Recorded Do you often feel lonely or isolated from those around you? 0 06/01/2024 Financial Resource Strain Answer Date R ecorded Difficulty of Paying Living Expenses 3 06/01/2024 Difficulty of Paying Living Expenses Not on file 06/01/2024 Food Insecurity Answer Date Recorded Do you worry your food will run out before you are able to buy more? 1 06/01/2024 Transportation Needs Answer Date Record ed Does lack of transportation keep you from medica l appointments? 1 06/01/2024 Does lack of transportation keep you from work, meetings or getting things that you need? 1 06/01/2024 Housing Stability Answer Date Recorded What is your housing situation today? 1 06/01/2024 Utilities Answer Date Recorded Do you have trouble paying f or utilities (for example, heat, electricity, water, phone)? 1 06/01/2024 Comments No Sex and Gender Information Value Date Recorded Sex Assigned at Not on file Legal Sex Female 5:25 AM DIRECTOR OF HEALTH CARE MARKETING Gender Identity Not on file Sexual Orientation Not on file Obstetrics History Para Term AB IAB SAB Ectopic Multiple Livin g Live Births 2 1 1 0 0 0 0 0 1 1 Date Outcome GA Total Labor Labor/2nd/3rd Weight Sex Type Anes PTL Florence A1 A5 Name Clin 2021 Term 37w 0d 2.98 kg (6 lb 9 oz) M Living Complications:Pre-eclampsia Last Filed Vital Signs Vital Sign Reading Time Taken Comments Blood Pressure 138/90 06/01/2024 4:20 PM CDT Pulse 77 06/01/2024 3:34 PM CDT Temperature 36.8 C (98.3 F) 04/17/2011 9:37 AM DIRECTOR OF HEALTH CARE MARKETING Respiratory Rate 16 06/01/2024 3:34 PM CDT Oxygen Saturation 100% 06/01/2024 3:34 PM CDT Inhaled Oxygen Concentration - - Weight 117 kg (258 lb) 06/01/2024 3:34 PM CDT Height 172.1 cm (5' 7.76) 06/01/2024 3:34 PM CD T Body Mass Index 39.51 06/01/2024 3:34 PM CDT Plan of Treatment Upcoming Encounters Date Type Department Care Team (Late st Contact Info) Description 06/04/2024 8:15 AM CDT [facility] [address] [place] [address] 06/29/2024 7:55 AM CDT Office Visit [facility] [address] [place] [address] [place] [address] [place] [address] Health Maintenance Due Date Last Done Comments HIV for age 15-65 2006 Hepatitis C screening for age 18-79 2009 COVID-19 vaccine series (2023- season) 2023 Influenza Vaccine (#1) 2023 Pap test for age 21-65 07/24/2024 , 07/24/2021, 11/21/2020, Additional history exists BMI (ht and wt on same day) for age 18+ 06/01/2025 06/01/2024, 10/28/2020, 04/27/2020, Additional history exists Depression screening for age 12+ 06/02/2025 06/02/2024, 06/02/2024, 06/01/2024, Additional history exists Tetanus booster 02/12/2033 02/12/2023, 03/26, 03/05/2014, Additional history exists Tdap Completed 02/12/2023, 03/26, 03/05/2014 Pneumococcal series for age 6-49 Aged Out No longer eligible based on patient's age to complete this topic Procedures Procedure Name Priority Date/Time Associated Diagnosis Comments URINALYSIS MACROSCOPIC - [facility] ONLY POC DIP ([facility]) Routine 06/01/2024 4:38 PM CDT Abdominal bloating HEMOGLOBIN A1C Routine 06/01/2024 4:34 PM CDT Diabetes mellitus screening LIPID PANEL W REFLEX MEASURED LDL Routine 06/01/2024 4:34 PM CDT Screening cholesterol level COMP METABOLIC PANEL Routine 06/01/2024 4:34 PM CDT Abdominal pain, epigastric LIPASE Routine 06/01/2024 4:34 PM CDT Abdominal pain, epigastric CBC WITH AUTO DIFFERENTIAL Routine 06/01/2024 4:34 PM CDT Abdominal pain, epigastric URINALYSIS MICROSCOPIC Routine 06/01/2024 4:32 PM CDT Abdominal bloating MARKING STITCHER THIN PREP PAP SCREEN IMAGED Routine 07/24/2021 10:40 AM CDT from Last 3 Months or Most Recently Relevant to Health Maintenance Results * (ABNORMAL) POCT Urinalysis Dipstick Only (06/01/2024 4:38 PM CDT) PH 7.5 5.0 - 8.0 [facility] SPECIFIC GRAVITY 1.015 1.001 - 1.035 [facility] GLUCOSE NEGATIVE NEGATIVE [facility] BILIRUBIN NEGATIVE NEGATIVE [facility] KETONES NEGATIVE NEGATIVE [facility] OCCULT BLOOD 3+(A) NEGATIVE [facility] PROTEIN NEGATIVE NEGATIVE [facility] NITRITE NEGATIVE NEGATIVE [facility] LEUKOCYTE ESTERASE NEGATIVE NEGATIVE [facility] Urine URINE SPECIMEN / Unknown 06/01/2024 4:38 PM CDT 06/01/2024 4:38 PM CDT Fernanda Ankita Diaz DO URINE Final Resul t Performing Organization Address City/[facility]/ZIP Co de Phone Number [facility] [address] [place] [address], [place] [phone] [facility] [address] [place] [address] * HEMOGLOBIN A1C (06/01/2024 4:34 PM CDT) HEMOGLOBIN A1C 5.1 <5.7 % of total Hgb [facility] Comment: For the purpose of screening for the presence of diabetes: <5.7% Consistent with the absence of diabetes 5.7-6.4% Consistent with increased risk for diabetes (prediabetes) > or =6.5% Consistent with diabetes This assay result is consistent with a decreased risk of diabetes. Currently, no consensus exists regarding use of hemoglobin A1c for diagnosis of diabetes in children. According to [place] Diabetes Association (ADA) guidelines, hemoglobin A1c <7.0% represents optimal control in non- diabetic patients. Different metrics may apply to specific patient populations. Standards of Medical Care in Diabetes(ADA). Blood BLOOD SPECIMEN / Unknown 06/01/2024 4:34 PM CDT 06/01/2024 4:34 PM CDT Fernanda Perales DO CHEMISTRY Final Resul t [facility] [address] [place] [address], [place] [phone] [facility] [address] [place] [address] * (ABNORMAL) LIPID PANEL W REFLEX MEASURED LDL (06/01/2024 4:34 PM CDT) CHOLESTEROL, TOTAL 215(H) <200 mg/dL [facility] HDL CHOLESTEROL 53 > OR = 50 mg/dL [facility] TRIGLYCERIDES 115 <150 mg/dL [facility] LDL-CHOLESTEROL 139(H) mg/dL (calc) [facility] Comment: Reference range: <100 Desirable range <100 mg/dL for primary prevention; <70 mg/dL for patients with CHD or diabetic patients with > or = 2 CHD risk factors. LDL-C is now calculated using the Jair calculation, which is a validated novel method providing better accuracy than the Friedewald equation in the estimation of LDL-C. Jules SATNOS et al. JOHNNY. 2013;310(19): 2000-5794 (http://education.GetTaxi/faq/TID173) CHOL/HDLC RATIO 4.1 <5.0 (calc) [facility] NON HDL CHOLESTEROL 162(H) <130 mg/dL (calc) [facility] Comment: For patients with diabetes plus 1 major ASCVD risk factor, treating to a non-HDL-C goal of <100 mg/dL (LDL-C of <70 mg/dL) is considered a therapeutic option. Blood BLOOD SPECIMEN / Unknown 06/01/2024 4:34 PM CDT 06/01/2024 4:34 PM CDT us Fernanda Perales DO CHEMISTRY Final Resul t [facility] [address] [place] [address], [facility] [address] [place] [address] * CBC AND DIFFERENTIAL (06/01/2024 4:34 PM CDT) WHITE BLOOD CELL COUNT 4.9 3.8 - 10.8 Thousand/u L [facility] RED BLOOD CELL COUNT 3.88 3.80 - 5.10 Million/uL [facility] HEMOGLOBIN 12.3 11.7 - 15.5 g/dL [facility] HEMATOCRIT 36.0 35.0 - 45.0 % [facility] MCV 92.8 80.0 - 100.0 fL [facility] MCH 31.7 27.0 - 33.0 pg [facility] MCHC 34.2 32.0 - 36.0 g/dL [facility] Comment: For adults, a slight decrease in the calculated MCHC value (in the range of 30 to 32 g/dL) is most likely not clinically significant; however, it should be interpreted with caution in correlation with other red cell parameters and the patient's clinical condition. RDW 11.3 11.0 - 15.0 % [facility] PLATELET COUNT 215 140 - 400 Thousand/u L [facility] MPV 11.2 7.5 - 12.5 fL [facility] ABSOLUTE NEUTROPHILS 2,528 1,500 - 7,800 cells/uL [facility] ABSOLUTE LYMPHOCYTES 1,808 850 - 3,900 cells/uL [facility] ABSOLUTE MONOCYTES 475 200 - 950 cells/uL [facility] ABSOLUTE EOSINOPHILS 69 15 - 500 cells/uL [facility] ABSOLUTE BASOPHILS 20 0 - 200 cells/uL [facility] NEUTROPHILS 51.6 % [facility] LYMPHOCYTES 36.9 % [facility] MONOCYTES 9.7 % [facility] EOSINOPHILS 1.4 % [facility] BASOPHILS 0.4 % [facility] Blood BLOOD SPECIMEN / Unknown 06/01/2024 4:34 PM CDT 06/01/2024 4:34 PM CDT us Fernanda Perales DO HEMATOLOGY Final Resul t [facility] [address] [place] [address], [facility] [address] [place] [address] * LIPASE (06/01/2024 4:34 PM CDT) LIPASE 42 7 - 60 U/L [facility] Blood BLOOD SPECIMEN / Unknown 06/01/2024 4:34 PM CDT 06/01/2024 4:34 PM CDT us Fernanda Luciano Diaz DO CHEMISTRY Final Resul t [facility] [address] [place] [address], [facility] [address] [place] [address] * COMP METABOLIC PANEL (06/01/2024 4:34 PM CDT) Pathologist [facility] GLUCOSE 91 65 - 99 mg/dL [facility] Comment: Fasting reference interval UREA NITROGEN (BUN) 9 7 - 25 mg/dL [facility] CREATININE 0.81 0.50 - 0.97 mg/dL [facility] EGFR 98 > OR = 60 mL/min/1. 73m2 [facility] BUN/CREATININE RATIO SEE NOTE: 6 - 22 (calc) [facility] Comment: Not Reported: BUN and Creatinine are within reference range. SODIUM 139 135 - 146 mmol/L [facility] POTASSIUM 3.8 3.5 - 5.3 mmol/L [facility] CHLORIDE 105 98 - 110 mmol/L [facility] CARBON DIOXIDE 23 20 - 32 mmol/L [facility] CALCIUM 9.3 8.6 - 10.2 mg/dL [facility] PROTEIN, TOTAL 7.3 6.1 - 8.1 g/dL [facility] ALBUMIN 4.7 3.6 - 5.1 g/dL [facility] GLOBULIN 2.6 1.9 - 3.7 g/dL (calc) [facility] ALBUMIN/GLOBULIN RATIO 1.8 1.0 - 2.5 (calc) [facility] BILIRUBIN, TOTAL 0.2 0.2 - 1.2 mg/dL [facility] ALKALINE PHOSPHATASE 35 31 - 125 U/L [facility] AST 17 10 - 30 U/L [facility] ALT 28 6 - 29 U/L [facility] Blood BLOOD SPECIMEN / Unknown 06/01/2024 4:34 PM CDT 06/01/2024 4:34 PM CDT Fernanda Perales DO CHEMISTRY Final Resul t Performing Organization Address City/[facility]/ZIP Co de Phone Number [facility] [address] [place] [address], [facility] [address] [place] [address] * URINALYSIS MICROSCOPIC (06/01/2024 4:32 PM CDT) RBC 0-2 0-2, None Seen /HPF 06/02/2024 4:00 AM CDT [facility] WBC 0-2 0-2, 3-5, None Seen /HPF 06/02/2024 4:00 AM CDT [facility] BACTERIA None Seen None Seen, Rare, Few Bacteria/ HPF 06/02/2024 4:00 AM CDT [facility] EPITHELIAL CELLS Few None Seen, Few Epi/HPF 06/02/2024 4:00 AM CDT [facility] HYALINE CASTS 0-2 0-2, 3-5 /LPF 06/02/2024 4:00 AM CDT [facility] Urine URINE SPECIMEN / Unknown Non-Blood / Unknown 06/01/2024 4:32 PM CDT 06/01/2024 4:32 PM CDT us Fernanda Perales DO URINE Final Resul t [facility] [address] [place] [address], [place] * MARKING STITCHER THIN PREP PAP SCREEN IMAGED (07/24/2021 10:40 AM CDT) Case Report Gynecologic Cytology Report Case: [id number] Authorizing Provider: Esme Villatoro CNM Collected: 07/24/2021 1040 Ordering Location: [facility] Received: 07/25/2021 0742 First Screen: Joy Hayward Specimen: MARKING STITCHER ThinPrep Vial Screening, Cervical/Vaginal 08/04/2021 12:46 PM CDT [facility] Dine in [facility] INTERPRETATION/ RESULT NEGATIVE FOR INTRAEPITHELIAL LESION OR MALIGNANCY (NIL) (none) 08/04/2021 12:46 PM CDT [facility] IMEN ADEQUACY Satisfactory for evaluation Endocervical component present 08/04/2021 12:46 PM CDT [facility] HPV REQUEST HPV and PAP 08/04/2021 12:46 PM CDT [facility] Menstrual Status 08/04/2021 12:46 PM CDT [facility] Additional Information 08/04/2021 12:46 PM CDT [facility] Comment: Interpreted at [facility] - [address], [place] [address] Automated Review Successful 08/04/2021 12:46 PM CDT [facility] Comment:Specimen processed s uccessfully by automated manager agricultural device, ThinPrep Imaging System, [employer] ANCILLARY TESTING MARKING STITCHER HPV Ordered, Please see separate report 08/04/2021 12:46 PM CDT [facility] Note The pap test is a screening technique, not a diagnostic procedure. It is used primarily to screen for squamous cancers and precursor lesions. Published studies have shown that it is subject to both false negative and false positive results. The pap test should not be used as the sole means to diagnose or exclude pre-malignant and malignant lesions. 08/04/2021 12:46 PM CDT [facility] Other (Cervical/Vagina l) 07/24/2021 10:40 AM CDT 07/25/2021 7:42 AM CDT Esme CLANCYM PATHOLOGY/CYTOLOGY Final Re sult [facility] [address] [place] [address], [place] from Last 3 Months or Most Recently Relevant to Health Maintenance Insurance [facility] Care Teams Credit Control Assistant Relationship Specialty [place] [address] [place] [address] PCP - General Family Practice 04/08/19
--- OUTSIDE RECORDS SUMMARY | 2024-06-02 22:08 | XMS_ITS | Encounter Summary ---
Author Organization [facility] Address [address] [place] [address] Care Team Providers Care Apprentice Electrician Name Role Phone Esme Villatoro ROBB Unavailable [phone] Emily Coon MD Unavailable No Ref-Primary, Physician Primary Care Provider Tam Eckert Rn RN Unavailable Unavaila ble Emily Coon MD Unavailable Encounter Details Date Type Department Care Team (Late st Contact Info) Description 10/11/2022 Telephone [facility] [address] [address] Tanmay Ulloa Social History Tobacco Use Types Packs/Day Years Used Date Smoking Tobacco: Never Assessed Comments Unknown Sex and Gender Information Value Date Recorded [...] a message with a appointment reminder for 10/25/22 @ 1:[address] Coon and a lab draw @ 12:00 pm. Tanmay Ulloa on 10/11/2022 at 8:39 AM documented in this encounter Plan of Treatment Not on file documented as of this encounter Visit Diagnoses Not on filedocumented in this encounter Care Teams Apprentice Electrician Relationship Specialty Start Date End Date No Ref-Primary, Physician PCP - General 10/02/22 Esme Villatoro CNM [address] [address] 10/02/22 Emily Coon MD [address] [place] [address] Internal Medicine 10/02/22 Tam Eckert, RN, RN Specialty Dairy Department Manager Nephrology 10/30/22 Emily Coon MD Assigned Nephrology Provider 10/27/22 documented as of this encounter
--- OUTSIDE RECORDS SUMMARY | 2024-06-02 22:08 | XMS_ITS | Encounter Summary ---
Author Organization [facility] Address [address] [place] [address] Care Team Providers Care Boat Puller Name Role Phone Esme Villatoro CNM Unavailable [phone] Emily Coon MD Unavailable No Ref-Primary, Physician Primary Care Provider Tam Eckert Rn RN Unavailable Unavaila ble Emily Coon MD Unavailable Encounter Details Date Type Department Care Team (Late st Contact Info) Description 11/06/2022 [facility] Advice [facility] [address] [address] Emily Coon MD Social History [...] on filedocumented in this encounter Care Teams Boat Puller Relationship Specialty Start Date End Date No Ref-Primary, Physician PCP - General 10/02/22 Esme Villatoro CNM [facility] [address] [place] [address] 10/02/22 Emily Coon MD [address] [place] [address] Internal Medicine 10/02/22 Tam Eckert, RN, RN Specialty Whizzer Nephrology 10/30/22 Emily Coon MD Assigned Nephrology Provider 10/27/22 documented as of this encounter
[2024-06-02 22:51] VITALS: BP 142/85; PULSE 88; RESP 16; TEMP 36.6; O2SAT 99; BMI 38.4
[2024-06-03] VITALS (15 sets, daily range): BP systolic 129–147; BP diastolic 81–88; PULSE 56–81; RESP 16; TEMP 36.3; O2SAT 94–99
--- NOTE | 2024-06-03 00:09 | ED.ABDPAIN ---
HPI - Abdominal Pain General Time Seen by Provider: 00:09 <Rakesh Vanessa MD - Last Filed: 06/03/24 08:05> Date Seen: 06/03/24 <Rakesh Vanessa MD - Last Filed: 06/03/24 08:05> Chief Complaint: Abdominal Pain <Rakesh Vanessa MD - Last Filed: 06/03/24 08:05> Stated Complaint: Upper abdominal pain, nauseous, low back pain <Rakesh Vanessa MD - Last Filed: 06/03/24 08:05> Time Seen by Provider: 06/03/24 00:09 <Rakesh Vanessa MD - Last Filed: 06/03/24 08:05> Source: patient, RN notes reviewed and old records reviewed <Rakesh Vanessa MD - Last Filed: 06/03/24 08:05> Mode of arrival: ambulatory <Rakesh Vanessa MD - Last Filed: 06/03/24 08:05> Limitations: no limitations <Rakesh Vanessa MD - Last Filed: 06/03/24 08:05> History of Present Illness HPI narrative: 34-year-old female who comes in today with upper abdominal pain. patient has been having intermittent abdominal pain since last October. She had 1 episode in October, had 1 episode and beginning April, had 3 episodes last week and then has had pain consistently since yesterday afternoon. Nausea with no vomiting. No diarrhea, no black or tarry stools. Was started on Carafate, omeprazole and took Pepcid for this as well today. No prior surgeries, does not think she is . <Rakesh Vanessa MD - Last Filed: 06/03/24 08:05> Related Data Home Medications: Home Medications ?Medication ?Instructions ?Recorded ?Confirmed docosahexaenoic acid 200 mg 200 mg PO DAILY 08/31/22 06/03/24 capsule ( DHA) pantoprazole 40 mg tablet,delayed mg PO DAILY 06/02/24 06/03/24 release sucralfate 1 gram tablet 06/02/24 06/03/24 Previous Rx's ?Medication ?Instructions ?Recorded norethindrone (contraceptive) 0.35 0.35 mg PO QDAY #84 tabs 05/03/23 mg tablet (July) oxycodone-acetaminophen 5 mg-325 1 tab PO Q6H PRN pain #14 tabs 06/03/24 mg tablet (Percocet) <Rakesh Vanessa MD - Last Filed: 06/03/24 08:05> Allergies/Adverse Reactions: Allergies Allergy/AdvReac Type Severity Reaction Status Date / Time No Known Drug Allergies Allergy Verified 06/03/24 11:27 <Rakesh Vanessa MD - Last Filed: 06/03/24 08:05> [facility] Medical History: Medical History (Updated 06/03/24 @ 13:28 by Maria Betancur MD) Chronic hypertension affecting ?O10.919 - Unspecified pre-existing hypertension complicating , unspecified trimester (ICD-10) Dyslipidemia ?E78.5 - Hyperlipidemia, unspecified (ICD-10) Polyhydramnios ?O40.9XX0 - Polyhydramnios, unspecified trimester, not applicable or unspecified (ICD-10) History of abnormal cervical Pap smear (2014) ?Z87.42 - Personal history of other diseases of the female genital tract (ICD-10) Normal spontaneous vaginal delivery (03/22/23) ?O80 - Encounter for full-term uncomplicated delivery (ICD-10) Gestational hypertension (2021) ?O13.9 - Gestational [-induced] hypertension without significant proteinuria, unspecified trimester (ICD-10) <Rakesh Vanessa MD - Last Filed: 06/03/24 08:05> Family History: Family History (Updated 06/03/24 @ 11:42 by Maria Betancur MD) Mother Colon cancer High blood pressure Father Kidney malignancy High blood pressure Maternal Grandfather Coronary artery disease Paternal Grandmother Breast cancer, Onset Age: 40 Aunt Breast cancer, Onset Age: 40 <Rakesh Vanessa MD - Last Filed: 06/03/24 08:05> Social History: Social History (Updated 06/03/24 @ 11:43 by Maria Betancur MD) Narrative: Works at a [employer] in [place]. Does not smoke. Rare alcohol use. What is your current living situation?: I presently have a place to live Problems where you live: no known problems In the past 12 months, utilities in danger of being shut off: no In past 12 months, lack of transportation kept you from medical appts, meetings, work, or getting things needed for daily living: no In the past 12 mos, have been you worried that your food would run out before you had money to buy more?: never true In the past 12 mos, the food you bought just didn't last and you didn't have money to buy more?: never true Smoking Status: Never smoker How often do you have a drink containing alcohol: monthly or less AUDIT-C Alcohol total score: 1 Non-prescribed substance use: denies use How often does anyone, including family, friends and others, physically hurt you: never How often does anyone, including family, friends and others, insult or talk down to you: never How often does anyone, including family, friends and others, threaten you with harm: never How often does anyone, including family, friends and others, scream or curse at you: never <Rakesh Vanessa MD - Last Filed: 06/03/24 08:05> Exam Narrative: Exam Narrative: General: Well-developed and well-nourished, no acute distress Head: Atraumatic and normocephalic Eyes: Pupils are equal reactive, extraocular motions intact, conjunctiva clear ENT: External nose and ears are normal, posterior pharynx without erythema or exudate Neck: No midline cervical tenderness, full spontaneous range of motion the neck, trachea midline, no adenopathy Heart: Regular rate and rhythm no murmurs or thrills Lungs: Clear to auscultation bilaterally without wheezes or crackles Abdomen: Soft, epigastric tenderness, nondistended with active bowel sounds Musculoskeletal: No tenderness, deformity, or edema Neurologic: Awake, alert, and oriented x3, no gross focal neurologic deficits, cranial nerves intact as tested Psych: Mood and affect are appropriate Skin: No rashes <Rakesh Vanessa MD - Last Filed: 06/03/24 08:05> Const: Vital Signs, click to edit/add: Vital Signs - 24 hr 06/02/24 22:51 06/03/24 01:06 06/03/24 03:39 Temperature 98 F Pulse Rate Pulse Rate [Right Pulse Oximeter] 88 75 70 Respiratory Rate 16 16 16 Blood Pressure Blood Pressure [Ri ght Upper Arm] 142/85 H 147/85 H 147/86 H Pulse Oximetry 99 99 98 Oxygen Delivery Me thod Room Air Room Air Room Air 06/03/24 04:05 06/03/24 04:30 06/03/24 05:00 Temperature Pulse Rate 66 61 78 Pulse Rate [Right Pulse Oximeter] Respiratory Rate Blood Pressure 130/81 Blood Pressure [Ri ght Upper Arm] Pulse Oximetry 94 94 97 Oxygen Delivery Me thod 06/03/24 05:30 06/03/24 06:02 06/03/24 06:30 Temperature Pulse Rate 57 L 62 56 L Pulse Rate [Right Pulse Oximeter] Respiratory Rate Blood Pressure 129/81 Blood Pressure [Ri ght Upper Arm] Pulse Oximetry 95 96 96 Oxygen Delivery Me thod 06/03/24 06:45 06/03/24 07:00 06/03/24 07:15 Temperature Pulse Rate 73 62 67 Pulse Rate [Right Pulse Oximeter] Respiratory Rate Blood Pressure Blood Pressure [Ri ght Upper Arm] Pulse Oximetry 97 96 96 Oxygen Delivery Me thod 06/03/24 07:30 06/03/24 07:45 06/03/24 08:00 Temperature 97.4 F L Pulse Rate 77 73 81 Pulse Rate [Right Pulse Oximeter] Respiratory Rate Blood Pressure Blood Pressure [Ri ght Upper Arm] Pulse Oximetry 99 97 99 Oxygen Delivery Me thod 06/03/24 08:23 Temperature Pulse Rate Pulse Rate [Right Pulse Oximeter] Respiratory Rate Blood Pressure 131/88 Blood Pressure [Ri ght Upper Arm] Pulse Oximetry Oxygen Delivery Me thod <Rakesh Vanessa MD - Last Filed: 06/03/24 08:05> Vital Signs, click to edit/add: Vital Signs - 24 hr 06/02/24 22:51 06/03/24 01:06 06/03/24 03:39 Temperature 98 F Pulse Rate Pulse Rate [Right Pulse Oximeter] 88 75 70 Respiratory Rate 16 16 16 Blood Pressure Blood Pressure [Ri ght Upper Arm] 142/85 H 147/85 H 147/86 H Pulse Oximetry 99 99 98 Oxygen Delivery Me thod Room Air Room Air Room Air 06/03/24 04:05 06/03/24 04:30 06/03/24 05:00 Temperature Pulse Rate 66 61 78 Pulse Rate [Right Pulse Oximeter] Respiratory Rate Blood Pressure 130/81 Blood Pressure [Ri ght Upper Arm] Pulse Oximetry 94 94 97 Oxygen Delivery Me thod 06/03/24 05:30 06/03/24 06:02 06/03/24 06:30 Temperature Pulse Rate 57 L 62 56 L Pulse Rate [Right Pulse Oximeter] Respiratory Rate Blood Pressure 129/81 Blood Pressure [Ri ght Upper Arm] Pulse Oximetry 95 96 96 Oxygen Delivery Me thod 06/03/24 06:45 06/03/24 07:00 06/03/24 07:15 Temperature Pulse Rate 73 62 67 Pulse Rate [Right Pulse Oximeter] Respiratory Rate Blood Pressure Blood Pressure [Ri ght Upper Arm] Pulse Oximetry 97 96 96 Oxygen Delivery Me thod 06/03/24 07:30 06/03/24 07:45 06/03/24 08:00 Temperature 97.4 F L Pulse Rate 77 73 81 Pulse Rate [Right Pulse Oximeter] Respiratory Rate Blood Pressure Blood Pressure [Ri ght Upper Arm] Pulse Oximetry 99 97 99 Oxygen Delivery Me thod 06/03/24 08:23 Temperature Pulse Rate Pulse Rate [Right Pulse Oximeter] Respiratory Rate Blood Pressure 131/88 Blood Pressure [Ri ght Upper Arm] Pulse Oximetry Oxygen Delivery Me thod <Kurt Mcknight MD - Last Filed: 06/03/24 15:53> Course Course ED Course: Reviewed primary care visit from June 01 when patient was seen for this same complaint which is been going on since October 2023. Reviewed labs done in clinic June 01 , normal CBC, normal metabolic panel. Patient has an ultrasound scheduled tomorrow at 8:15 a.m. Labs independently interpreted by me with normal CBC, be normal basic panel, new elevation in the AST and ALT although alkaline phosphatase is normal, direct bili is slightly elevated as well although total bilirubin is normal. Patient with intermittent right upper quadrant pain since October. She had one episode in October, one in April, three last week, and one yesterday that has been constant since the afternoon. on exam here vital is stable with epigastric tenderness. Given new abnormal LFTs, ultrasound is ordered to evaluate for choledocholithiasis or less likely acute cholecystitis. <Rakesh Vanessa MD - Last Filed: 06/03/24 08:05> Reevaluation(s) Time of Reevaluation #1: 02:56 <Rakesh Vanessa MD - Last Filed: 06/03/24 08:05> Reevaluation #1: Right upper quadrant ultrasound demonstrates gallbladder sludge with a mobile stone, no findings for acute cholecystitis, no intrahepaticductal dilatation, common bile duct 5 mm. Given continued pain and elevated LFTs, will discuss with Gastroenterology for possible transfer for MRCP/ERCP. <Rakesh Vanessa MD - Last Filed: 06/03/24 08:05> Time of Reevaluation #2: 03:20 <Rakesh Vanessa MD - Last Filed: 06/03/24 08:05> Reevaluation #2: Updated patient with findings and plan, care discussed with [facility] transfer moro and patient is on wait list for transfer. Repeat morning labs and MRCP ordered in case patient is still in the department. <Rakesh Vanessa MD - Last Filed: 06/03/24 08:05> Time of Reevaluation #3: 07:07 <Rakesh Vanessa MD - Last Filed: 06/03/24 08:05> Reevaluation #3: Labs independently interpreted by me with normal CBC, however total bilirubin is now 2.2, direct bili were and 1.5, AST 285, ALT 290, alkaline phosphatase remains normal. Will discuss with Gastroenterology to determine if MRCP still needs to be done. <Rakesh Vanessa MD - Last Filed: 06/03/24 08:05> Additional Reevaluation(s): 7:18 AM Care discussed with Dr. Hitchcock, [facility]. Feels that as liver tests are increasing, MRCP is not needed as patient either needs ERCP or cholecystectomy with intraoperative cholangiogram. Care was discussed with Dr. Betancur, general surgery, patient could have cholecystectomy and intraoperative cholangiogram here tomorrow. 8:04 a.m. this sign out to oncoming provider. Will discuss with hospitalist as patient is leaning toward staying in [place]. <Rakesh Vanessa MD - Last Filed: 06/03/24 08:05> Vital Signs Vital signs: Initial Vital Signs Temperature 98 F 06/02/24 22:51 Temperature Source Temporal Artery Scan 06/02/24 22:51 Pulse Rate 88 06/02/24 22:51 Respiratory Rate 16 06/02/24 22:51 Blood Pressure 142/85 H 06/02/24 22:51 Blood Pressure Mean 104 03/11/25 22:51 Blood Pressure Position Sitting 06/02/24 22:51 Pulse Oximetry 99 06/02/24 22:51 Oxygen Delivery Method Room Air 06/02/24 22:51 Vital Signs Temperature 98 F 06/02/24 22:51 Pulse Rate 88 06/02/24 22:51 Respiratory Rate 16 06/02/24 22:51 Blood Pressure 142/85 H 06/02/24 22:51 Pulse Oximetry 99 06/02/24 22:51 Oxygen Delivery Method Room Air 06/02/24 22:51 Temperature 97.4 F L 06/03/24 07:45 Pulse Rate 81 06/03/24 08:00 Respiratory Rate 16 06/03/24 03:39 Blood Pressure 131/88 06/03/24 08:23 Pulse Oximetry 99 06/03/24 08:00 Oxygen Delivery Method Room Air 06/03/24 03:39 <Rakesh Vanessa MD - Last Filed: 06/03/24 08:05> Initial Vital Signs Temperature 98 F 06/02/24 22:51 Temperature Source Temporal Artery Scan 06/02/24 22:51 Pulse Rate 88 06/02/24 22:51 Respiratory Rate 16 06/02/24 22:51 Blood Pressure 142/85 H 06/02/24 22:51 Blood Pressure Mean 104 06/02/24 22:51 Blood Pressure Position Sitting 06/02/24 22:51 Pulse Oximetry 99 06/02/24 22:51 Oxygen Delivery Method Room Air 06/02/24 22:51 Vital Signs Temperature 98 F 06/02/24 22:51 Pulse Rate 88 06/02/24 22:51 Respiratory Rate 16 06/02/24 22:51 Blood Pressure 142/85 H 06/02/24 22:51 Pulse Oximetry 99 06/02/24 22:51 Oxygen Delivery Method Room Air 06/02/24 22:51 Temperature 97.4 F L 06/03/24 07:45 Pulse Rate 81 06/03/24 08:00 Respiratory Rate 16 06/03/24 03:39 Blood Pressure 131/88 06/03/24 08:23 Pulse Oximetry 99 06/03/24 08:00 Oxygen Delivery Method Room Air 06/03/24 03:39 <Kurt Mcknight MD - Last Filed: 06/03/24 15:53> Medications Administered Medications: Discontinued Medications Generic Name Dose Route Start Last Admin Trade Name Freq PRN Reason Stop Dose Admin Hydromorphone HCl 0.5 mg 06/03/24 03:18 06/03/24 03:30 Hydromorphone 0.5 Mg/0.5 Ml Inj IVP 06/03/24 03:19 0.5 mg ONCE ONE Administration Lactated Ringer's 1,000 mls @ 125 mls/hr 06/03/24 07:50 06/03/24 08:45 Lactated Ringers 1000 Ml IV 0 mls/hr .Q8H DEVORAH Infusion Ketorolac Tromethamine 15 mg 06/03/24 01:19 06/03/24 01:36 Ketorolac 15 Mg/Ml Inj IVP 06/03/24 01:20 15 mg ONCE ONE Administration <Rakesh Vanessa MD - Last Filed: 06/03/24 08:05> Discontinued Medications Generic Name Dose Route Start Last Admin Trade Name Freq PRN Reason Stop Dose Admin Hydromorphone HCl 0.5 mg 06/03/24 03:18 06/03/24 03:30 Hydromorphone 0.5 Mg/0.5 Ml Inj IVP 06/03/24 03:19 0.5 mg ONCE ONE Administration Lactated Ringer's 1,000 mls @ 125 mls/hr 06/03/24 07:50 06/03/24 08:45 Lactated Ringers 1000 Ml IV 0 mls/hr .Q8H DEVORAH Infusion Ketorolac Tromethamine 15 mg 06/03/24 01:19 06/03/24 01:36 Ketorolac 15 Mg/Ml Inj IVP 06/03/24 01:20 15 mg ONCE ONE Administration <Kurt Mcknight MD - Last Filed: 06/03/24 15:53> MDM - Abdominal Pain MDM Narrative Medical decision making narrative: Addendum at 8:16 a.m. patient has no further pain. She has been discussed with the she needs an ERCP verses simply cholecystectomy and intraoperative cholangiogram. At this point her pain is gone she would like to stay here and proceed with cholecystectomy. She still might need an intraoperative cholangiogram and will need a ERCP if that would be positive. Dr. Giraldo knows about the patient asked me to admit to the hospitalist service and trend labs and likely would perform this tomorrow. Addendum 8:36 a.m. after discussion with the patient. Her pain is resolved, discussed with Dr. Giraldo. The patient can likely see her in the clinic today, could proceed with outpatient cholecystectomy. Likely still needs intraoperative cholangiogram, told her she may need an ERCP even if she has a retained stone. That is probably unlikely given she has no pain at this point. She will see Dr. Giraldo and disposition pending her consultation. Patient be discharged from the hospital at this time in stable condition with no pain. <Kurt Mcknight MD - Last Filed: 06/03/24 15:53> Lab Data Labs: Lab Results 06/03/24 06/03/24 06/03/24 Range/Units 00:00 00:58 06:10 WBC 8.90 7.13 (4.50-11.00) K/uL RBC 4.04 3.77 L (4.00-5.20) m/uL Hgb 12.5 11.9 L (12.0-16.0) gm/dL Hct 37.4 34.9 (33.0-51.0) % MCV 93 93 (80-100) fL MCH 31 32 (26-34) pg MCHC 33 34 (32-36) gm/dL RDW Coeff of Lamont 11.1 L 11.1 L (11.5-15.5) % Plt Count 220 198 (140-440) K/uL Neut % (Auto) 74.4 H 69.2 (42.0-72.0) % Lymph % (Auto) 17.5 L 21.0 (20-44) % [place] % (Auto) 7.5 9.0 (0.0-11.0) % Eos % (Auto) 0.3 0.7 (0.0-7.0) % Baso % (Auto) 0.1 0.0 (0.0-3.0) % Neut # (Auto) 6.60 4.93 (1.7-7.0) K/uL Lymph # (Auto) 1.60 1.50 (0.90-2.90) K/uL [place] # (Auto) 0.70 0.60 (0.00-0.90) K/UL Eos # (Auto) 0.03 0.05 (0.00-0.50) K/uL Baso # (Auto) 0.01 0.00 (0.00-0.30) K/uL Abs Immat Gran (auto) 0.02 0.01 (0.00-0.30) K/uL Imm/Tot Granulo (auto) 0.2 0.1 % Sodium 138 (135-149) mmol/L Potassium 3.6 (3.6-5.1) mmol/L Chloride 105 (96-114) mmol/L Carbon Dioxide 24 (20-32) mmol/L Anion Gap 9 (7-15) mEq/L BUN 9 (5-24) mg/dL Creatinine 0.7 (0.5-1.5) mg/dL Estimated Creat Clear 111.16 Estimated GFR 117 ml/min Glucose 108 (60-115) mg/dL Calcium 9.3 (8.4-10.6) mg/dL Total Bilirubin 1.4 2.2 H (0.1-1.5) mg/dL Direct Bilirubin 0.9 H 1.5 H (0.0-0.5) mg/dL AST 229 H 285 H (12-35) U/L ALT 201 H 290 H (4-35) U/L Alkaline Phosphatase 42 45 (40-150) U/L Total Protein 7.3 6.7 (6.0-8.3) g/dL Albumin 4.6 4.1 (3.3-5.0) g/dL Lipase 100 (23-300) U/L Urine HCG, Qual Negative (Negative) <Rakesh Vanessa MD - Last Filed: 06/03/24 08:05> Lab Results 06/03/24 06/03/24 06/03/24 Range/Units 00:00 00:58 06:10 WBC 8.90 7.13 (4.50-11.00) K/uL RBC 4.04 3.77 L (4.00-5.20) m/uL Hgb 12.5 11.9 L (12.0-16.0) gm/dL Hct 37.4 34.9 (33.0-51.0) % MCV 93 93 (80-100) fL MCH 31 32 (26-34) pg MCHC 33 34 (32-36) gm/dL RDW Coeff of Lamont 11.1 L 11.1 L (11.5-15.5) % Plt Count 220 198 (140-440) K/uL Neut % (Auto) 74.4 H 69.2 (42.0-72.0) % Lymph % (Auto) 17.5 L 21.0 (20-44) % [place] % (Auto) 7.5 9.0 (0.0-11.0) % Eos % (Auto) 0.3 0.7 (0.0-7.0) % Baso % (Auto) 0.1 0.0 (0.0-3.0) % Neut # (Auto) 6.60 4.93 (1.7-7.0) K/uL Lymph # (Auto) 1.60 1.50 (0.90-2.90) K/uL [place] # (Auto) 0.70 0.60 (0.00-0.90) K/UL Eos # (Auto) 0.03 0.05 (0.00-0.50) K/uL Baso # (Auto) 0.01 0.00 (0.00-0.30) K/uL Abs Immat Gran (auto) 0.02 0.01 (0.00-0.30) K/uL Imm/Tot Granulo (auto) 0.2 0.1 % Sodium 138 (135-149) mmol/L Potassium 3.6 (3.6-5.1) mmol/L Chloride 105 (96-114) mmol/L Carbon Dioxide 24 (20-32) mmol/L Anion Gap 9 (7-15) mEq/L BUN 9 (5-24) mg/dL Creatinine 0.7 (0.5-1.5) mg/dL Estimated Creat Clear 111.16 Estimated GFR 117 ml/min Glucose 108 (60-115) mg/dL Calcium 9.3 (8.4-10.6) mg/dL Total Bilirubin 1.4 2.2 H (0.1-1.5) mg/dL Direct Bilirubin 0.9 H 1.5 H (0.0-0.5) mg/dL AST 229 H 285 H (12-35) U/L ALT 201 H 290 H (4-35) U/L Alkaline Phosphatase 42 45 (40-150) U/L Total Protein 7.3 6.7 (6.0-8.3) g/dL Albumin 4.6 4.1 (3.3-5.0) g/dL Lipase 100 (23-300) U/L Urine HCG, Qual Negative (Negative) <Kurt Mcknight MD - Last Filed: 06/03/24 15:53> Discharge Plan Discharge Clinical Impression: Biliary colic, Biliary obstruction <Rakesh Vanessa MD - Last Filed: 06/03/24 08:05> Patient Disposition: Home, Self-Care <Rakesh Vanessa MD - Last Filed: 06/03/24 08:05> Condition: Improved <Rakesh Vanessa MD - Last Filed: 06/03/24 08:05> Additional Instructions: Follow up general surgery appointment is scheduled at the [facility] on 06/03 with an 11:30am appointment time. Please arrive at 11:20am to complete paperwork. If you have any questions, please call [phone]. [address] [address] <Rakesh Vanessa MD - Last Filed: 06/03/24 08:05> Prescriptions: No Action norethindrone (contraceptive) [July] 0.35 mg tablet 0.35 mg PO QDAY Qty: 84 4RF oxycodone-acetaminophen [Percocet] 5-325 mg tablet 1 tab PO Q6H PRN (Reason: pain) Qty: 14 0RF DHA 200 mg capsule 200 mg PO DAILY sucralfate 1 gram tablet pantoprazole 40 mg tablet,delayed release (DR/EC) PO DAILY <Rakesh Vanessa MD - Last Filed: 06/03/24 08:05> Follow Up/Referrals: Provider,Not a Local [Primary Care Provider] - <Rakesh Vanessa MD - Last Filed: 06/03/24 08:05> Stand Alone Forms: MyHealth Info Instructions <Rakesh Vanessa MD - Last Filed: 06/03/24 08:05>
[2024-06-03 00:26] LABS: Albumin* 4.6 g/dL (3.3-5.0); Chloride* 105 mmol/L (96-114); Potassium* 3.6 mmol/L (3.6-5.1); Sodium* 138 mmol/L (135-149)
[2024-06-03 00:29] LABS: Alanine Aminotransferase* 201 U/L (4-35); Alkaline Phosphatase* 42 U/L (40-150); Anion Gap 9 mEq/L (7-15); Aspartate Amino Transferase* 229 U/L (12-35); Bilirubin Direct* 0.9 mg/dL (0.0-0.5); Bilirubin Total* 1.4 mg/dL (0.1-1.5); Blood Urea Nitrogen* 9 mg/dL (5-24); Calcium* 9.3 mg/dL (8.4-10.6); Carbon Dioxide* 24 mmol/L (20-32); Creatinine* 0.7 mg/dL (0.5-1.5); Est. Creatinine Clearance* 111.16; Estimated Glomerular Filt Rate 117 ml/min; Glucose* 108 mg/dL (60-115); Lipase* 100 U/L (23-300); Total Protein* 7.3 g/dL (6.0-8.3)
[2024-06-03 00:35] LABS: Basophils Absolute Auto 0.01 K/uL (0.00-0.30); Basophils Percent Auto 0.1 % (0.0-3.0); Eosinophils Absolute Auto 0.03 K/uL (0.00-0.50); Eosinophils Percent Auto 0.3 % (0.0-7.0); Hematocrit 37.4 % (33.0-51.0); Hemoglobin* 12.5 gm/dL (12.0-16.0); Immature Granulocytes Abs Auto 0.02 K/uL (0.00-0.30); Immature Granulocytes Pct Auto 0.2 %; Lymphocytes Percent Auto 17.5 % (20-44); Mean Corpuscular HGB Conc 33 gm/dL (32-36); Mean Corpuscular Hemoglobin 31 pg (26-34); Mean Corpuscular Volume 93 fL (80-100); Monocytes Percent Auto 7.5 % (0.0-11.0); Neutrophils Percent Auto 74.4 % (42.0-72.0); Platelet Count* 220 K/uL (140-440); RDW Coefficient of Variation % 11.1 % (11.5-15.5); Red Blood Count 4.04 m/uL (4.00-5.20)
[2024-06-03 00:41] LABS: Slide Review Reflex No
--- OUTSIDE RECORDS SUMMARY | 2024-06-03 01:11 | XMS_ITS | Encounter Summary ---
Author Organization [place] Address [address] [place] [id number] Care Team Providers Care Police Department Secretary Name Role Phone Esme Villatoro ROBB Unavailable [phone] Emily Coon MD Unavailable No Ref-Primary, Physician Primary Care Provider Tam Eckert Rn RN Unavailable Unavaila ble Emily Coon MD Unavailable Encounter Details Date Type Department Care Team (Late st Contact Info) Description 10/11/2022 Telephone [facility] [address] [address] Tanmay Ulloa Social History Tobacco [...] on filedocumented in this encounter Care Teams Police Department Secretary Relationship Specialty Start Date End Date No Ref-Primary, Physician PCP - General 10/02/22 Esme Villatoro CNM [address] [address] 10/02/22 Emily Coon MD [address] [place] [address] Internal Medicine 10/02/22 Tam Eckert, RN, RN Specialty Land Surveying Manager Nephrology 10/30/22 Emily Coon MD Assigned Nephrology Provider 10/27/22 documented as of this encounter
--- OUTSIDE RECORDS SUMMARY | 2024-06-03 01:12 | XMS_ITS | Clinical Summary ---
Author Organization [place] Address [address] [place] [address] Care Team Providers Care Delivery Recruiter Name Role Phone Esme Villatoro ROBB Unavailable [phone] Emily Coon MD Unavailable No Ref-Primary, Physician [...] Comments Blood Pressure 138/88 01/31/2023 3:07 PM PIN MACHINE TENDER Pulse 88 01/31/2023 3:07 PM PIN MACHINE TENDER Temperature 36.8 C (98.3 F) 10/25/2022 1:01 PM CDT Respiratory Rate - - Oxygen Saturation 97% 01/31/2023 3:07 PM PIN MACHINE TENDER Inhaled Oxygen Concentration - - Weight 120.2 kg (265 lb) 01/31/2023 3:07 PM PIN MACHINE TENDER Height 175.3 cm (5' 9) 01/31/2023 3:07 PM PIN MACHINE TENDER p t reported Body Mass Index 39.13 01/31/2023 3:07 PM PIN MACHINE TENDER Plan of Treatment Health Maintenance Due Date [...] AM CDT) HIV 1&2 EXT Non-Reacti ve [facility] Blood 08/31/2022 10:1 4 AM CDT [facility] - 08/31/2022 10:14 AM CDT [facility] LAB RESULT us Provider Outside LAB - HIM EXTERNAL RESULT Final Result Performing Organization Address City/[facility]/ZIP Co de Phone Number [facility] [address] [place], [place] [address] [phone] * Hepatitis C (HIM External Result) (08/31/2022 10:14 AM CDT) Hep C HIM See Scanned Document [facility] 08/31/2022 10:1 4 AM CDT [facility] - 08/31/2022 10:14 AM CDT [facility] LAB RESULT us Provider Outside LAB - HIM EXTERNAL RESULT Final Result Performing Organization Address [facility] Co de Phone Number [facility] [address] [place], [place] [address] [phone] from Last 3 Months or Most Recently Relevant to Health Maintenance Insurance [facility] [place] Care Teams Delivery Recruiter Relationship Specialty Start Date End Date No Ref-Primary, Physician PCP - General 10/02/22 Esme Villatoro CNM [address] [address] 10/02/22 Emily Coon MD [address] [place] [id number] Internal Medicine 10/02/22 Emily Coon MD Assigned Nephrology Provider 10/27/22
--- OUTSIDE RECORDS SUMMARY | 2024-06-03 01:12 | XMS_ITS | Encounter Summary ---
Author Organization [place] Address [address] [place] [address]. [place] [address] Care Team Providers Care Log Chain Feeder Name Role Phone Esme Villatoro CNM Unavailable [phone] Emily Coon MD Unavailable No Ref-Primary, Physician Primary Care Provider Emily Coon MD Unavailable Encounter Details Date Type Department Care Team (Late st Contact Info) Description 01/18/2023 [facility] [address] [address] Tanmay Ulloa Social History Tobacco [...] on filedocumented in this encounter Care Teams Log Chain Feeder Relationship Specialty Start Date End Date No Ref-Primary, Physician PCP - General 10/02/22 Esme Villatoro CNM [facility] [address] [place] [address] 10/02/22 Emily Coon MD [address] [place] [address] [place] [address] Internal Medicine 10/02/22 Emily Coon MD Assigned Nephrology Provider 10/27/22 documented as of this encounter
--- OUTSIDE RECORDS SUMMARY | 2024-06-03 01:12 | XMS_ITS | Encounter Summary ---
Author Organization [facility] Address [address] [place] [address] Care Team Providers Care Inspecting And Testing Lead Hand Name Role Phone Esme Villatoro CNM Unavailable [phone] Emily Coon MD Unavailable No Ref-Primary, Physician Primary Care Provider Tam Eckert Rn RN Unavailable Unavaila ble Emily Coon MD Unavailable Encounter Details Date Type Department Care Team (Late st Contact Info) Description 11/06/2022 [facility] Medical Advice [facility] [address] [address] Emily Coon MD Social History [...] on filedocumented in this encounter Care Teams Inspecting And Testing Lead Hand Relationship Specialty Start Date End Date No Ref-Primary, Physician PCP - General 10/02/22 Esme Villatoro CNM [facility] [address] [place] [address] 10/02/22 Emily Coon MD [address] [place] [address] Internal Medicine 10/02/22 Tam Eckert, RN, RN Specialty Estate Agent Nephrology 10/30/22 Emily Coon MD Assigned Nephrology Provider 10/27/22 documented as of this encounter
--- OUTSIDE RECORDS SUMMARY | 2024-06-03 01:12 | XMS_ITS | Encounter Summary ---
Author Organization [place] Address [address] [place] [address] Care Team Providers Care Professor Of Apologetics Name Role Phone Esme Villatoro CNM Unavailable [phone] Emily Coon MD Unavailable No Ref-Primary, Physician Primary Care Provider Tam Eckert Rn RN Unavailable Unavaila ble Emily Coon MD Unavailable Encounter Details Date Type Department Care Team (Late st Contact Info) Description 11/06/2022 [facility] Medical Advice [facility] [address] [address] Tam Eckert, RN, RN Social [...] on filedocumented in this encounter Care Teams Professor Of Apologetics Relationship Specialty Start Date End Date No Ref-Primary, Physician PCP - General 10/02/22 Esme Villatoro CNM [facility] [address] [address] 10/02/22 Emily Coon MD [address] [place] [address] Internal Medicine 10/02/22 Tam Eckert, RN, RN Specialty Mechanic Welder Nephrology 10/30/22 Emily Coon MD Assigned Nephrology Provider 10/27/22 documented as of this encounter
--- OUTSIDE RECORDS SUMMARY | 2024-06-03 01:12 | XMS_ITS | Clinical Summary ---
Author Organization [facility] Address [facility] [place] [address] Care Team Providers Care Personnel Security Specialist Name Role Phone DiazCjri Ankita Primary Care Provider Allergies No known active allergies Medications vit [...] Orders Only [facility] [address] [place] [address] Lab, [facility] 06/02/2024 Telephone [facility] [id number] [place] [address] Fernanda Perales DO requesting call back 06/01/2024 3:25 PM CDT Office Visit [facility] [address] [place] [address] Fernanda Perales DO Physical; Abdominal Pain (rt upper abd ) 06/01/2024 Travel 04/29/2024 Nurse Triage [facility] Centralized Nurse Triage Fernanda Perales [...] on file Legal Sex Female 5:25 AM SENIOR INFRASTRUCTURE ARCHITECT Gender Identity Not on file Sexual Orientation [...] 36.8 C (98.3 F) 04/17/2011 9:37 AM SENIOR INFRASTRUCTURE ARCHITECT Respiratory Rate 16 06/01/2024 3:34 PM CDT [...] Description 06/04/2024 8:15 AM CDT Ancillary Procedure [facility] [address] [place] [address] 06/29/2024 7:55 AM CDT Office Visit [facility] [address] [place] [address] [place] [address] [place] [address] Health Maintenance Due Date Last Done Comments [...] Date/Time Associated Diagnosis Comments URINALYSIS MACROSCOPIC - [facility] ONLY POC DIP ([facility]) Routine 06/01/2024 4:38 [...] Routine 06/01/2024 4:32 PM CDT Abdominal bloating REFRESH TECHNICIAN THIN PREP PAP SCREEN IMAGED Routine 07/24/2021 10:40 AM CDT from Last 3 Months or Most Recently Relevant to Health Maintenance Results * (ABNORMAL) POCT Urinalysis Dipstick Only (06/01/2024 4:38 PM CDT) PH 7.5 5.0 - 8.0 [facility] SPECIFIC GRAVITY 1.015 1.001 - 1.035 [facility] GLUCOSE NEGATIVE NEGATIVE [facility] BILIRUBIN NEGATIVE NEGATIVE [facility] KETONES NEGATIVE NEGATIVE [facility] OCCULT BLOOD 3+(A) NEGATIVE [facility] PROTEIN NEGATIVE NEGATIVE [facility] NITRITE NEGATIVE NEGATIVE [facility] LEUKOCYTE ESTERASE NEGATIVE NEGATIVE [facility] Urine URINE SPECIMEN / Unknown 06/01/2024 4:38 PM CDT 06/01/2024 4:38 PM CDT Fernanda Ankita Diaz DO URINE Final Resul t Performing Organization Address City/[facility]/ZIP Co de Phone Number [facility] [address] [place] [address], [place] [phone] [facility] [address] [place] [address] * HEMOGLOBIN A1C (06/01/2024 4:34 PM CDT) [...] diagnosis of diabetes in children. According to [place] Diabetes Association (ADA) guidelines, hemoglobin A1c <7.0% represents optimal control in non- diabetic patients. Different metrics may apply to specific patient populations. Standards of Medical Care in Diabetes(ADA). Blood BLOOD SPECIMEN / Unknown 06/01/2024 4:34 PM CDT 06/01/2024 4:34 PM CDT Fernanda Perales DO CHEMISTRY Final Resul t [facility] [address] [place] [address], [place] [phone] [facility] [address] [place] [address] * (ABNORMAL) LIPID PANEL W REFLEX MEASURED [...] equation in the estimation of LDL-C. Jules SANTOS et al. JOHNNY. 2013;310(19): 2983-6850 (http://education.RoughHands/faq/KGR856) CHOL/HDLC RATIO 4.1 <5.0 (calc) [facility] NON HDL CHOLESTEROL 162(H) <130 mg/dL (calc) [facility] Comment: For patients with diabetes plus 1 major ASCVD risk factor, treating to a non-HDL-C goal of <100 mg/dL (LDL-C of <70 mg/dL) is considered a therapeutic option. Blood BLOOD SPECIMEN / Unknown 06/01/2024 4:34 PM CDT 06/01/2024 4:34 PM CDT us Fernanda Perales DO CHEMISTRY Final Resul t [facility] [address] [place] [address], [facility] [address] [place] [address] * CBC AND DIFFERENTIAL (06/01/2024 4:34 PM CDT) WHITE BLOOD CELL COUNT 4.9 3.8 - 10.8 Thousand/u L [facility] RED BLOOD CELL COUNT 3.88 3.80 - 5.10 Million/uL [facility] HEMOGLOBIN 12.3 11.7 - 15.5 g/dL [facility] HEMATOCRIT 36.0 35.0 - 45.0 [...] Fernanda Perales DO HEMATOLOGY Final Resul t [facility] [place] [place] [address] [place] [address], [facility] [address] [place] [address] * LIPASE (06/01/2024 4:34 PM CDT) LIPASE 42 7 - 60 U/L [facility] Blood BLOOD SPECIMEN / Unknown 06/01/2024 4:34 PM CDT 06/01/2024 4:34 PM CDT us Fernanda Luciano Diaz DO CHEMISTRY Final Resul t [facility] [place] [place] [address] [place] [address], [facility] [address] [place] [address] * COMP METABOLIC PANEL (06/01/2024 4:34 PM CDT) Pathologist [facility] GLUCOSE 91 65 - 99 mg/dL [facility] [...] CHEMISTRY Final Resul t Performing Organization Address City/[facility]/ZIP Co de Phone Number [facility] [address] [place] [address], [facility] [address] [place] [address] * URINALYSIS MICROSCOPIC (06/01/2024 4:32 PM CDT) RBC 0-2 0-2, None Seen /HPF 06/02/2024 4:00 AM CDT [facility] WBC 0-2 0-2, 3-5, None Seen /HPF 06/02/2024 4:00 AM CDT [facility] BACTERIA None Seen None Seen, Rare, Few Bacteria/ HPF 06/02/2024 4:00 AM CDT [facility] EPITHELIAL CELLS Few None Seen, Few Epi/HPF 06/02/2024 4:00 AM CDT [facility] HYALINE CASTS 0-2 0-2, 3-5 /LPF 06/02/2024 4:00 AM CDT [facility] Urine URINE SPECIMEN / Unknown Non-Blood / Unknown 06/01/2024 4:32 PM CDT 06/01/2024 4:32 PM CDT us Fernanda Perales DO URINE Final Resul t [facility] [address] [place] [address], [place] * REFRESH TECHNICIAN THIN PREP PAP SCREEN IMAGED (07/24/2021 10:40 AM CDT) Case Report Gynecologic Cytology Report Case: [id number] Authorizing Provider: Esme Villatoro CNM Collected: 07/24/2021 1040 Ordering Location: [facility] Received: 07/25/2021 0742 First Screen: Joy Hayward Specimen: REFRESH TECHNICIAN ThinPrep Vial Screening, Cervical/Vaginal 08/04/2021 12:46 PM CDT [facility] INTERPRETATION/ RESULT NEGATIVE FOR INTRAEPITHELIAL LESION OR MALIGNANCY (NIL) (none) 08/04/2021 12:46 PM CDT [facility] IMEN ADEQUACY Satisfactory for evaluation Endocervical component present 08/04/2021 12:46 PM CDT [facility] HPV REQUEST HPV and PAP 08/04/2021 12:46 PM CDT [facility] Menstrual Status 08/04/2021 12:46 PM CDT [facility] Additional Information 08/04/2021 12:46 PM CDT [facility] Comment: Interpreted at [facility] - [address], [place] [address] Automated Review Successful 08/04/2021 12:46 PM CDT [facility] Comment:Specimen processed s uccessfully by automated dental sales representative device, ThinPrep Imaging System, [employer] ANCILLARY TESTING REFRESH TECHNICIAN HPV Ordered, Please see separate report 08/04/2021 12:46 PM CDT [facility] Note The pap test [...] and malignant lesions. 08/04/2021 12:46 PM CDT [facility] Other (Cervical/Vagina l) 07/24/2021 10:40 AM CDT 07/25/2021 7:42 AM CDT Esme CLANCYM PATHOLOGY/CYTOLOGY Final Re sult [facility] [address] [place] [address], [place] from Last 3 Months or Most Recently Relevant to Health Maintenance Insurance [facility] Care Teams Personnel Security Specialist Relationship Specialty [place] [address] [address] [place] [address] PCP - General Family Practice 04/08/19
--- OUTSIDE RECORDS SUMMARY | 2024-06-03 01:12 | XMS_ITS | Encounter Summary ---
Author Organization [facility] Address [address] [place] [address]. [place] [address] Care Team Providers Care Equipment Application Specialist Name Role Phone Esme Villatoro CNM Unavailable [phone] Emily Coon MD Unavailable No Ref-Primary, Physician Primary Care Provider Emily Coon MD Unavailable Encounter Details Date Type Department Care Team (Late st Contact Info) Description 01/29/2023 [facility] Medical Advice [facility] [address] [address] Emily Coon MD Social History [...] on filedocumented in this encounter Care Teams Equipment Application Specialist Relationship Specialty Start Date End Date No Ref-Primary, Physician PCP - General 10/02/22 Esme Villatoro CNM [address] [address] 10/02/22 Emily Coon MD [address] [place] [address] MD Internal Medicine 10/02/22 Emily Coon MD Assigned Nephrology Provider 10/27/22 documented as of this encounter
--- OUTSIDE RECORDS SUMMARY | 2024-06-03 01:12 | XMS_ITS | Encounter Summary ---
Author Organization [facility] Address [address] [place] [address] Care Team Providers Care Parachute Taper Name Role Phone Esme Villatoro ROBB Unavailable [phone] Emily Coon MD Unavailable No Ref-Primary, Physician Primary Care Provider Tam Eckert Rn RN Unavailable Unavaila ble Emily Coon MD Unavailable Reason for Visit * Reason Onset Date Comments Patient Request 10/29/2022 Encounter Details Date Type Department Care Team (Late st Contact Info) Description 10/29/2022 [facility] [address] [address] Emily Coon MD Patient Request [...] on voicemail: yes Reason for Call: Other: [facility] referred patient to see Neph. Patient had an appt on 10/25/22 and they would like to request the appt notes. Please fax the notes to [phone]. Attn to Dr. Narayanan.Please reach out to Tanisha should you have any questions. Action Taken: Other: Nephrology Travel Screening: Not Applicable documented in this encounter Plan of Treatment Not on file documented as of this encounter Visit Diagnoses Not on filedocumented in this encounter Care Teams Parachute Taper Relationship Specialty Start Date End Date No Ref-Primary, Physician PCP - General 10/02/22 Esme Villatoro CNM [address] [address] 10/02/22 Emily Coon MD [address] [place] [address] Internal Medicine 10/02/22 Tam Eckert, RN, RN Specialty [place] [facility] 10/30/22 Emily Coon MD Assigned Nephrology Provider 10/27/22 documented as of this encounter
[2024-06-03 01:17] LABS: Ur HCG Qualitative* Negative (Negative)
[2024-06-03] MEDS: KETOROLAC 15 MG/ML inj IVP (01:36)
[2024-06-03] MEDS: HYDROmorphone 0.5 mg/0.5 ml inj IVP (03:30)
[2024-06-03 06:31] LABS: Eosinophils Absolute Auto 0.05 K/uL (0.00-0.50); Eosinophils Percent Auto 0.7 % (0.0-7.0); Hematocrit 34.9 % (33.0-51.0); Hemoglobin* 11.9 gm/dL (12.0-16.0); Immature Granulocytes Abs Auto 0.01 K/uL (0.00-0.30); Immature Granulocytes Pct Auto 0.1 %; Mean Corpuscular HGB Conc 34 gm/dL (32-36); Mean Corpuscular Hemoglobin 32 pg (26-34); Mean Corpuscular Volume 93 fL (80-100); Neutrophils Absolute Auto 4.93 K/uL (1.7-7.0); Neutrophils Percent Auto 69.2 % (42.0-72.0); Platelet Count* 198 K/uL (140-440); RDW Coefficient of Variation % 11.1 % (11.5-15.5); Red Blood Count 3.77 m/uL (4.00-5.20); White Blood Count* 7.13 K/uL (4.50-11.00)
[2024-06-03 06:32] LABS: Slide Review Reflex No
[2024-06-03 06:43] LABS: Albumin* 4.1 g/dL (3.3-5.0)
[2024-06-03 06:45] LABS: Bilirubin Direct* 1.5 mg/dL (0.0-0.5); Bilirubin Total* 2.2 mg/dL (0.1-1.5); Total Protein* 6.7 g/dL (6.0-8.3)
[2024-06-03 06:46] LABS: Alanine Aminotransferase* 290 U/L (4-35); Alkaline Phosphatase* 45 U/L (40-150); Aspartate Amino Transferase* 285 U/L (12-35)
[2024-06-03] MEDS: LACTATED RINGERS 1000 ML 1,000 ML 125 ML IV (08:09)
--- NOTE | 2024-06-03 08:46 | PC.NURSE ---
IV infiltrated. Educated patient on using warm compresses. LR was infusing at the time.
== END 2024-06-03 09:32 | disposition home or self-care (01) ==
PROVIDERS: Emergency Provider Family Medicine
DX: K80.51 Calculus of bile duct without cholangitis or cholecystitis with obstruction (principal)
CPT/HCPCS: 36415; 76705; 80048; 80076; 81025; 83690; 85025; 96374; 96375; 99284; J1171; J1885; J7120

== ENCOUNTER 2024-06-04 10:23 | Day surgery (SDC) | payer BC, SELFPAY ==
[2024-06-04] VITALS (12 sets, daily range): BP systolic 130–153; BP diastolic 72–87; PULSE 67–78; RESP 12–16; TEMP 36.2–36.7; O2SAT 96–100; BMI 38.3
[2024-06-04] MEDS: LACTATED RINGERS 1000 ML 1,000 ML 100 ML IV (11:00)
[2024-06-04] MEDS: SODIUM CHLORIDE 0.9 % (FLUSH) 10 ML SYRINGE IVF (11:01)
[2024-06-04 11:02] LABS: Albumin* 4.8 g/dL (3.3-5.0)
[2024-06-04 11:05] LABS: Alanine Aminotransferase* 297 U/L (4-35); Alkaline Phosphatase* 76 U/L (40-150); Aspartate Amino Transferase* 127 U/L (12-35); Bilirubin Total* 1.7 mg/dL (0.1-1.5); Total Protein* 7.7 g/dL (6.0-8.3)
--- NOTE | 2024-06-04 11:30 | CRLHL7_ITS ---
For Patients: As a result of the Century Cures Act, medical imaging exams and procedure reports are released immediately into your electronic medical record. You may view this report before your referring provider. If you have questions, please contact your health care provider. INDICATION : Laparoscopic cholecystectomy. TECHNIQUE : Intraoperative cholangiogram. Contrast injected via gallbladder neck and cystic duct. FINDINGS : Fluoroscopy time was 26 seconds. Two images were obtained. IMPRESSION : Normal caliber intra and extrahepatic ducts. No filling defects. Contrast seen within the duodenum. Normal intraoperative cholangiogram. Dictated by Robert Jones MD @ 06/05/2024 1:33:08 PM (Electronically Signed)
--- NOTE | 2024-06-04 11:52 | PM.GSPRC ---
Operative Note Date of procedure: 06/04/24 Pre-op diagnosis: 1. Cholelithiasis, concern for cholecystitis 2. Elevated bilirubin, concern for choledocholithiasis Post-op diagnosis: 1. Acute cholecystitis 2. Elevated bilirubin, negative cholangiogram Type of Procedure: 1. Laparoscopic cholecystectomy 2. Intraoperative cholangiogram Indications: The patient is a 34-year-old female who has had right upper quadrant pain on and off for the past several months. She developed acute pain 2 days ago and came into the emergency department. She was found to have elevated LFTs but no dilated common bile duct. A discussion was had about MRCP versus ERCP. The patient elected to proceed with cholecystectomy intraoperative cholangiogram. Her pain improved so she was discharged home from the ER notes plan for cholecystectomy today of note, in preop her LFTs had improved however they did remain elevated Procedure Description: After discussing the risks and benefits of the procedure, the patient signed informed consent.? The operative site was marked and the patient was brought to the operating room and placed on the operating table in supine position.? Care was taken to pad the patient's pressure points.?? The patient was then intubated by anesthesia.?? The operative site was then prepped and draped in the usual sterile fashion.? A time-out was then performed. Entrance to the abdomen was gained via Carranza technique. An infraumbilical incision was created and dissection was taken down through the subcutaneous tissue. The fascia was grasped between 2 Katie clamps and incised. The peritoneum was incised and entered. A 10 mm port was advanced into the abdomen the abdomen was insufflated. 5 mm ports were then placed in left upper abdomen, the right upper abdomen, and the right lateral abdomen, all along the costal margin. The patient was then placed in reverse Trendelenburg position with the right side up. The gallbladder fundus was edematous and tense. However, I was able to grasp this and retract it cephalad. The infundibulum was grasped. A combination of hook cautery and blunt dissection was used to carefully dissect out the cystic duct and artery until they could clearly be seen entering the gallbladder without any intervening structures. The gallbladder was dissected off the cystic plate to achieve the critical view. Once this was achieved the cystic artery was clipped with 2 clips proximal 1 clip distal. This was divided. Next, I placed a clip on the proximal cystic duct and below this a ductotomy was created. A moderate amount of bile flowed from the cystic duct stump, some of this was a thick and sludgy. The duct was gently palpated. There were no stones the duct. A cholangiocatheter was then advanced into the cystic duct stump. A clamp was placed. A leak test was performed with saline. Then, the patient was laid flat and fluoroscopy was brought into the field. Contrast was then injected through the cholangiocatheter. There was prompt filling of the common bile duct and duodenum. I then visualized the right and left hepatic ducts. There did not appear to be a filling defect. I injected contrast a 2nd time and similarly did not notice any filling defects. The cholangiocatheter was removed and the patient was placed back in reverse Trendelenburg with the right-side up. I then clipped the cystic duct stump and transected the cystic duct with scissors. Gallbladder was then taken off the liver bed using cautery. Gallbladder was retrieved from the abdomen using an Endo-Catch bag. The liver bed was examined for hemostasis which appeared excellent. Bile that had spilled during the cholangiogram was suctioned from the abdomen. The abdomen was irrigated. The ports were then removed and the abdomen desufflated. The umbilical port fascia was closed with 0 Vicryl. The skin was closed with absorbable subcuticular suture. Sterile dressings were applied. Instrument sponge and needle counts were correct at the end of the case. The patient was then woken and transferred to the PACU in stable condition. The patient tolerated the procedure well. Findings: 1. Acute cholecystitis 2. Negative cholangiogram Surgeon: Maria Betancur MD Specimen: Gallbladder Condition: stable Disposition: PACU
[2024-06-04] MEDS: 0.9% SODIUM CHL 50 ML VIAL INJECTION (12:30)
[2024-06-04] MEDS: BUPIVACAINE 0.25% 30 ML INJECTION (12:30)
[2024-06-04] MEDS: 0.9 % SODIUM CHL 20 ml vial INJECTION (12:30)
[2024-06-04] MEDS: iopamidoL 50 ML VIAL INJECTION (12:30)
--- NOTE | 2024-06-04 13:16 | P.ANES_ITS ---
Anesthesia Charges Start Date/Time Anesthesia Start Date: 06/04/24 Anesthesia Start Time: 11:35 Stop Date/Time Anesthesia Stop Date: 06/04/24 Anesthesia Stop Time: 13:13 Coding CPT Codes CPT Codes: ANESTH SURG UPPER ABDOMEN - 57693 ([id number]) QK - SENIOR ENERGY CONSULTANT 2-4 CNCRNT ANES PROC, QX - ACTIVE DIRECTORY SPECIALIST SVC W/ MD MED DIRECTION, P2 - PATIENT W/MILD SYST DISEASE
--- NOTE | 2024-06-04 13:16 | W.ANESCHARGE ---
Anesthesia Charges Start Date/Time Anesthesia Start Date: 06/04/24 Anesthesia Start Time: 11:35 Stop Date/Time Anesthesia Stop Date: 06/04/24 Anesthesia Stop Time: 13:13 Coding CPT Codes CPT Codes: ANESTH SURG UPPER ABDOMEN - 30751 ([id number]) QK - PRIMER AND POWDER CANNING LEADER 2-4 CNCRNT ANES PROC, QX - BUSINESS EXCELLENCE MANAGER SVC W/ MD MED DIRECTION, P2 - PATIENT W/MILD SYST DISEASE
[2024-06-04] MEDS: fentaNYL 100 MCG/2 ML inj 50 MCG IVP (13:25)
[2024-06-04] MEDS: KETOROLAC 15 MG/ML inj IVP (13:34)
--- NOTE | 2024-06-04 13:53 | SUR.PHASEI ---
hung 500cc lr bag at end of pacu phase 1
[2024-06-04] MEDS: LACTATED RINGERS 500 ML 500 ML 100 ML IV (13:59)
[2024-06-04] MEDS: ACETAMINOPHEN 325 MG TABLET 650 MG PO (14:45)
== END 2024-06-04 15:22 | disposition home or self-care (01) ==
LOC: OR 10:24 → MEDSURG 10:27 → OR 13:30
PROVIDERS: Visit Provider Surgery
PROC: 0FT44ZZ Resection of Gallbladder, Percutaneous Endoscopic Approach (ICD-10-PCS; CPT 47563; principal; 2024-06-04 11:30)
DX: K80.00 Calculus of gallbladder with acute cholecystitis without obstruction (principal)
CPT/HCPCS: 47563; 00790; 36415; 74300; 76000; 80076; G0463; A9270; J0330; J0665; J1885; J2250; J2405; J2704; J3010; J3490; J7120; Q9967

== ENCOUNTER 2024-06-08 10:27 | Outpatient (CLI) | payer BC, SELFPAY | END 2024-06-08 10:28 | disposition home or self-care (01) | LOC: NFLDREF 06-09 06:57 | PROVIDERS: Visit Provider Surgery | DX: R79.89 Other specified abnormal findings of blood chemistry (principal) | CPT/HCPCS: 80076 ==